=== PATIENT | female | born 1955 | race Caucasian/White ===

== ENCOUNTER → 2017-11-12 10:35 | Outpatient (CLI) | payer BC, SELFPAY ==
--- NOTE | 2017-11-12 10:37 | RAD_ITS ---
STUDY: X-RAY - LEFT KNEE REASON FOR EXAM: Female, 62 years old. Pain, decreased range of motion TECHNIQUE: 4 view(s) of the knee. COMPARISON: None. FINDINGS: Normal visualized distal femur. Normal visualized proximal tibia and fibula. Normal proximal tibiofibular articulation. There is mild degenerative arthrosis of the medial femorotibial compartment. Normal lateral femorotibial compartment. There is mild degenerative arthrosis of the patellofemoral articulation. The soft tissue structures are unremarkable. RAD/Knee 4 or More Views IMPRESSION: Degenerative arthrosis. Electronically Signed: Dagoberto Valentin MD at 12:14 EDT , Service support ,
== END ==
PROVIDERS: Family Provider Internal Medicine; PCP Internal Medicine; Visit Provider Orthopaedic Surgery
DX: M25.562 Pain in left knee (principal)
CPT/HCPCS: 73564

== ENCOUNTER 2020-09-08 16:57 | Outpatient (RCR) | payer MEDICARE, SELFPAY ==
[2017-11-12 10:38] VITALS: BMI 26.6
== END 2020-09-08 23:59 ==
LOC: IMMUN 16:57
PROVIDERS: PCP Internal Medicine; Referring Provider Family Medicine; Visit Provider Family Medicine
DX: Z23 Encounter for immunization (principal)
CPT/HCPCS: 0011A; 0012A; 91301

== ENCOUNTER → 2021-06-16 10:42 | Outpatient (CLI) | payer MEDICARE, OTHER, SELFPAY | PROVIDERS: PCP Internal Medicine; Referring Provider Physician Assistant; Visit Provider Physician Assistant | DX: U07.1 COVID-19 (principal) | CPT/HCPCS: 87635; U0005; U0003 ==

== ENCOUNTER → 2023-06-04 | Outpatient (CLI) | payer MEDICARE, OTHER, SELFPAY | END | disposition home or self-care (01) | LOC: SL 11:00 | PROVIDERS: PCP Internal Medicine; Referring Provider Nurse Practitioner Acute Care; Visit Provider Nurse Practitioner Acute Care | DX: G47.10 Hypersomnia, unspecified (principal) | CPT/HCPCS: 95806 ==

== ENCOUNTER → 2023-08-06 | Outpatient (CLI) | payer MEDICARE, OTHER, SELFPAY ==
--- OUTSIDE RECORDS SUMMARY | 2023-08-06 20:10 | XMS RPT_ITS | CCD ---
Author Name Unknown Address [address] [place] [address] Organization [facility] Care Team Providers Care Fur Examiner Name Role Phone Aline TELESALES CONSULTANT, Sanam Gray Unavailable Dequan Hartman MD Primary Care Provider Dequan Hratman MD Primary Care Provider Dequan Hartman MD Primary Care Provider ISIDRO MARTINEZ, DR MASOUD Brannon Primary Care Physician MASOUD FELIX MD Attending Unavailable MASOUD FELIX MD Primary Care Unavailable JEANNIE, FLACA Referring Unavailable FLACA DENNIS Attending Unavailable TALAMPAS, DEQUAN D Primary Care Unavailable TALAMPAS, DEQUAN D Primary Care Unavailable TALAMPAS, DEQUAN D Referring Unavailable DESMOND FLORES Attending Unavailable TALAMPAS, DEQUAN D Primary Care Unavailable DESMOND FLORES Attending Unavailable TALAMPAS, DEQUAN D Primary Care Unavailable TALAMPAS, DEQUAN D Primary Care Unavailable TALAMPAS, DEQUAN D Referring Unavailable TALAMPAS, DEQUAN D Attending Unavailable TALAMPAS, DEQUAN D Primary Care Unavailable BETH OWENS Attending Unavailable TALAMPAS, DEQUAN D Primary Care Unavailable AVANI FLOWERS Attending Unavail able TALAMPAS, DEQUAN D Primary Care Unavailable TALAMPAS, DEQUAN D Primary Care Unavailable TALAMPAS, DEQUAN D Referring Unavailable TALAMPAS, DEQUAN D Primary Care Unavailable TALAMPAS, DEQUAN D Referring Unavailable TALAMPAS, DEQUAN D Attending Unavailable TALAMPAS, DEQUAN D Primary Care Unavailable TALAMPAS, DEQUAN D Referring Unavailable TALAMPAS, DEQUAN D Primary Care Unavailable TALAMPAS, DEQUAN D Referring Unavailable ALMA DELIA, MATTHEW J Referring Unavailable TALAMPAS, DEQUAN D Primary Care Unavailable TALAMPAS, DEQUAN D Primary Care Unavailable TALAMPAS, DEQUAN D Referring Unavailable BETH OWENS Referring Unavailable BETH OWENS Attending Unavailable TALAMPAS, DEQUAN D Primary Care Unavailable BETH OWENS Referring Unavailable ROSEANN ARANDA Attending Unavailable TALAMPAS, DEQUAN D Primary Care Unavailable JUAN PABLO MEJÍA Attending Unavailable TALAMPAS, DEQUAN D Primary Care Unavailable Allergies Allergy Classification Reported Allergen(s) Allergy Type Date of Onset Reaction(s) Facility (2 sources) Adhesive Tape drug allergy 4 unknown [facility] (2 sources) apis mellifera venom; Translations: [BEE STINGS] allergy to substance 4 unknown [facility] (20 sources) nickel; Translations: [NICKEL] Drug Allergy 8 unknown [facility] (20 sources) PERFUMES; Translations: [PERFUMES] drug allergy 5 unknown [facility] (20 sources) beestings [Other] Propensity to adverse reactions 5 [facility] Work Phone: (20 sources) tape [Other] Propensity to adverse reactions 5 [facility] Work Phone: (1 source) BEE STING; Translations: [BEE STING] Propensity to adverse reactions (disorder) 3 [facility] (1 source) ADHESIVE TAPE-SILICONES; Translations: [ADHESIVE TAPE-SILICONES] Propensity to adverse reactions to drug (disorder) 3 [facility] (1 source) OTHER; Translations: [OTHER] Propensity to adverse reactions (disorder) 5 [facility] Medications Current Medications Medication Drug Class(es) Dates Sig (Normalized) Sig (Original) LORazepam 0.5 mg oral tablet (18 sources) Benzodiazepine Start: 09-29-2022 End: 10-29-2022 take 1 tablet by mouth once daily as needed LORazepam (ATIVAN) 0.5 mg Indications: LONNY (generalized anxiety disorder) Take 1 tablet by mouth once daily as needed for up to 30 days. 15 tablet 0 09/29/2022 10/29/2022 Active Completed/Discontinued Medications Medication Drug Class(es) Dates Sig (Normalized) Sig (Original) amitriptyline hydrochloride 25 mg oral tablet (4 sources) Tricyclic Antidepressant Start: 08-05-2013 End: 06-14-2017 take 1-2 tablets by mouth at bedtime for sleep AMITRIPTYLINE HCL 25 MG TABS 1-2 tablets by mouth at bedtime for sleep AMITRIPTYLINE HCL [id number] Mare Charles RN 24 hr buPROPion hydrochloride 300 mg extended release oral tablet (2 sources) Aminoketone Start: 08-05-2013 take 1 tablet by mouth once daily WELLBUTRIN XL 300 MG [id number] One tablet by mouth daily BUPROPION HCL [id number] Mare Charles RN calcium carbonate 1500 mg / cholecalciferol 200 unt oral tablet (20 sources) Vitamin D Start: 04-19-2005 FABI-600 WITH VITAMIN D 600 MG-200 UNIT TAB Take by mouth. 0 04/19/2005 Active Problems Active Problems Problem Classification Problem Date Documented Da te Episodic/Chronic Anxiety disorders (20 sources) Generalized anxiety disorder; Translations: [Generalized anxiety disorder] Onset: 07-13-2021 07-13-2021 Chronic Disorders of lipid metabolism (20 sources) Hyperlipidemia; Translations: [Hyperlipidemia, unspecified] Onset: 06-06-2006 08-05-2013 Chronic Essential hypertension (5 sources) Essential hypertension; Translations: [Essential (primary) hypertension] Onset: 05-31-2023 Chronic Headache; including migraine (20 sources) Migraine without aura; Translations: [Migraine without aura, not intractable, without status migrainosus] Onset: 06-06-2006 06-06-2006 Chronic Mood disorders (20 sources) Recurrent major depressive episodes, moderate ; Translations: [Major depressive disorder, recurrent, moderate] Onset: 07-13-2021 07-13-2021 Chronic Nonmalignant breast conditions (5 sources) Fibrocystic changes of bilateral breasts; Translations: [Diffuse cystic mastopathy of right breast] Chronic Nonmalignant breast conditions (1 source) Breast finding ; Translations: [Other signs and symptoms in breast] Episodic Nutritional deficiencies (3 sources) Vitamin D deficiency; Translations: [Vitamin D deficiency, unspecified] Onset: 05-31-2023 Chronic Other aftercare (1 source) Patient encounter status; Translations: [Other 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 control service representative (current) drug therapy] Episodic Other aftercare (1 source) Other termite control service representative (current) drug therapy; Translations: [Encounter for long-term current use of medication] Onset: 05-31-2023 Episodic Other disorders of stomach and duodenum (1 source) Nonulcer dyspepsia; Translations: [Other diseases of stomach and duodenum] Episodic Other female genital disorders (1 source) Vaginal odor; Translations: [Other specified noninflammatory disorders of vagina] Episodic Other gastrointestinal disorders (1 source) Heartburn; Translations: [Heartburn] 08-11-2022 Episodic Other hereditary and degenerative nervous system conditions (1 source) Impaired cognition; Translations: [Mild cognitive impairment, so stated] 04-06-2023 Chronic Other nutritional; endocrine; and metabolic disorders (4 sources) Obese class I; Translations: [Obesity, unspecified] Onset: 04-06-2023 04-06-2023 Chronic Other screening for suspected conditions (not mental disorders or infectious disease) (7 sources) Mammography abnormal; Translations: [Other abnormal and inconclusive findings on diagnostic imaging of breast] Onset: 07-25-2023 Episodic Other skin disorders (1 source) Localized swelling of right foot; Translations: [Localized swelling, mass and lump, right lower limb] Episodic Prolapse of female genital organs (2 sources) Midline cystocele; Translations: [Cystocele, midline] Onset: 06-14-2017 06-14-2017 Chronic Residual codes; unclassified (20 sources) Family history of breast cancer; Translations: [Family history of malignant neoplasm of breast] 06-25-2019 Episodic Residual codes; unclassified (5 sources) Genetic mutation; Translations: [Genetic susceptibility to other disease] Episodic Residual codes; unclassified (1 source) Postmenopausal state; Translations: [Asymptomatic menopausal state] Episodic Residual codes; unclassified (1 source) Asymptomatic menopausal state; Translations: [Asymptomatic postmenopausal state] Onset: 07-25-2023 Episodic Skin and subcutaneous tissue infections (2 sources) Cellulitis of right lower limb; Translations: [Cellulitis of right lower limb] 04-03-2023 Episodic Spondylosis; intervertebral disc disorders; other back problems (1 source) Low back pain; Translations: [Low back pain, unspecified back pain laterality, unspecified chronicity, unspecified whether sciatica present] Episodic Superficial injury; contusion (1 source) Insect bite, nonvenomous, of foot; Translations: [Insect bite (nonvenomous), right foot, initial encounter] 04-03-2023 Episodic Thyroid disorders (20 sources) Hypothyroidism; Translations: [Hypothyroidism, unspecified] Onset: 09-27-2015 09-27-2015 Chronic Unclassified (2 sources) Gynecologic examination ; Translations: [Encounter for gynecological examination (general) (routine) without abnormal findings] Onset: 06-14-2017 06-14-2017 Past or Other Problems Problem Classification Problem Date Documented Da te Episodic/Chronic Allergic reactions (20 sources) Allergy to bee venom; Translations: [Bee allergy status] Onset: 12-18-2016 12-18-2016 Episodic Conditions associated with dizziness or vertigo (2 sources) Dizziness; Translations: [Dizziness and giddiness] Onset: 08-05-2013 08-05-2013 Episodic Nausea and vomiting (4 sources) Nausea; Translations: [Nausea] Onset: 08-11-2022 Episodic Nonspecific chest pain (2 sources) Chest pain, unspecified; Translations: [Chest pain, unspecified] Onset: 08-05-2013 08-05-2013 Episodic Other gastrointestinal disorders (1 source) Heartburn; Translations: [Heartburn] Onset: 08-11-2022 Episodic Other non-traumatic joint disorders (20 sources) Multiple joint pain; Translations: [Pain in unspecified joint] Onset: 06-06-2006 06-06-2006 Episodic Results Test Name Value Interpretation Reference Range Facil ity Vital Signs Date Time Vital Sign Value Performing Clinician Facility 04-06-2023 10:43-0400 Diastolic blood pressure 74 mm[Hg] Desmond Flores APRN.CNP Work Phone: [facility] 04-06-2023 10:43-0400 Systolic blood pressure 130 mm[Hg] Desmond Flores APRN.CNP Work Phone: [facility] 04-06-2023 10:41-0400 Body height 158.8 cm Desmond Flores APRN.CNP Work Phone: [facility] 04-06-2023 10:41-0400 Body weight 77.56 kg Desmond Flores APRN.CNP Work Phone: [facility] 04-06-2023 10:41-0400 Heart rate 56 /min Desmond Sandra SEASONING SPRAYER.HELP DESK SPECIALIST Work Phone: [facility] 04-06-2023 10:41-0400 SaO2% (BldA) [Mass fraction] 98 % Desmond Sandra SEASONING SPRAYER.HELP DESK SPECIALIST Work Phone: [facility] 04-03-2023 15:47-0400 Diastolic blood pressure 70 mm[Hg] Desmond Sandra SEASONING SPRAYER.HELP DESK SPECIALIST Work Phone: [facility] 04-03-2023 15:47-0400 Systolic blood pressure 150 mm[Hg] Desmond Sandra SEASONING SPRAYER.HELP DESK SPECIALIST Work Phone: [facility] 04-03-2023 15:46-0400 Body weight 78.93 kg Desmond Sandra SEASONING SPRAYER.HELP DESK SPECIALIST Work Phone: [facility] 04-03-2023 15:46-0400 Heart rate 65 /min Desmond Sandra SEASONING SPRAYER.HELP DESK SPECIALIST Work Phone: [facility] 04-03-2023 15:46-0400 SaO2% (BldA) [Mass fraction] 97 % Desmond Sandra SEASONING SPRAYER.HELP DESK SPECIALIST Work Phone: [facility] 12-18-2022 11:50-0400 Body height 167.6 cm Flaca Dennis MD Work Phone: [facility] 12-18-2022 11:50-0400 Body weight 77.11 kg Flaca Dennis MD Work Phone: [facility] 11-29-2022 11:03-0400 Diastolic blood pressure 78 mm[Hg] Dequan Hartman MD Work Phone: [facility] 11-29-2022 11:03-0400 Systolic blood pressure 122 mm[Hg] Dequan Hartman MD Work Phone: [facility] 11-29-2022 09:44-0400 Body temperature 97.3 [degF] Dequan Hartman MD Work Phone: [facility] 11-29-2022 09:44-0400 Body weight 78.02 kg Dequan Hartman MD Work Phone: [facility] 11-29-2022 09:44-0400 Heart rate 62 /min Dequan Hartman MD Work Phone: [facility] 11-29-2022 09:44-0400 Respiratory rate 18 /min Dequan aHrtman MD Work Phone: [facility] 11-29-2022 09:44-0400 SaO2% (BldA) [Mass fraction] 97 % Dequan Hartman MD Work Phone: [facility] 08-18-2022 14:42-0500 Body height 167.6 cm Roseann Rockwell PA-C Work Phone: [facility] 08-18-2022 14:42-0500 Body temperature 97.39 [degF] Roseann Rockwell PA-C Work Phone: [facility] 08-18-2022 14:42-0500 Body weight 79.83 kg Roseann Rockwell PA-C Work Phone: [facility] 08-18-2022 14:42-0500 Diastolic blood pressure 84 mm[Hg] Roseann Rosi PA-C Work Phone: [facility] 08-18-2022 14:42-0500 Heart rate 80 /min Roseann Rockwell PA-C Work Phone: [facility] 08-18-2022 14:42-0500 SaO2% (BldA) [Mass fraction] 97 % Roseann Rockwell PA-C Work Phone: [facility] 08-18-2022 14:42-0500 Systolic blood pressure 126 mm[Hg] Roseann Rockwell PA-C Work Phone: [facility] 08-11-2022 13:12-0500 Diastolic blood pressure 88 mm[Hg] Beth Owens MD Work Phone: [facility] 08-11-2022 13:12-0500 Heart rate 69 /min Beth Owens MD Work Phone: [facility] 08-11-2022 13:12-0500 Respiratory rate 16 /min Beth Owens MD Work Phone: [facility] 08-11-2022 13:12-0500 SaO2% (BldA) [Mass fraction] 95 % Beth Owens MD Work Phone: [facility] 08-11-2022 13:12-0500 Systolic blood pressure 169 mm[Hg] Beth Owens MD Work Phone: [facility] 08-11-2022 11:42-0500 Body temperature 97 [degF] Beth Owens MD Work Phone: [facility] 08-10-2022 10:15-0500 Body height 167.6 cm Beth Owens MD Work Phone: [facility] 08-10-2022 10:15-0500 Body temperature 98.2 [degF] Beth Owens MD Work Phone: [facility] 08-10-2022 10:15-0500 Body weight 79.83 kg Beth Owens MD Work Phone: [facility] 08-10-2022 10:15-0500 Diastolic blood pressure 86 mm[Hg] Beth Owens MD Work Phone: [facility] 08-10-2022 10:15-0500 Heart rate 89 /min Beth Owens MD Work Phone: [facility] 08-10-2022 10:15-0500 SaO2% (BldA) [Mass fraction] 96 % Beth Owens MD Work Phone: [facility] 08-10-2022 10:15-0500 Systolic blood pressure 142 mm[Hg] Beth Owens MD Work Phone: [facility] 07-05-2022 13:23-0500 Body weight 82.64 kg Avani Chamberlain MD Work Phone: [facility] 07-05-2022 13:23-0500 Diastolic blood pressure 90 mm[Hg] Avani Chamberlain MD Work Phone: [facility] 07-05-2022 13:23-0500 Systolic blood pressure 160 mm[Hg] Avani Chamberlain MD Work Phone: [facility] 06-05-2022 14:23-0500 Diastolic blood pressure 82 mm[Hg] Dequan Hartman MD Work Phone: [facility] 06-05-2022 14:23-0500 Systolic blood pressure 132 mm[Hg] Dequan Hartman MD Work Phone: [facility] 03-15-2022 14:30-0400 Body weight 81.19 kg Radha Rajguru SEASONING SPRAYER.HELP DESK SPECIALIST Work Phone: [facility] 03-15-2022 14:30-0400 Diastolic blood pressure 78 mm[Hg] Radha Rajguru SEASONING SPRAYER.HELP DESK SPECIALIST Work Phone: [facility] 03-15-2022 14:30-0400 Heart rate 62 /min Radha Rajguru SEASONING SPRAYER.HELP DESK SPECIALIST Work Phone: [facility] 03-15-2022 14:30-0400 Systolic blood pressure 158 mm[Hg] Radha Rajguru SEASONING SPRAYER.HELP DESK SPECIALIST Work Phone: [facility] 01-11-2022 15:55-0400 Body weight 80.74 kg Radha Rajguru SEASONING SPRAYER.HELP DESK SPECIALIST Work Phone: [facility] 01-11-2022 15:55-0400 Diastolic blood pressure 78 mm[Hg] Radha Rajguru SEASONING SPRAYER.HELP DESK SPECIALIST Work Phone: [facility] 01-11-2022 15:55-0400 Systolic blood pressure 142 mm[Hg] Radha Rajguru SEASONING SPRAYER.HELP DESK SPECIALIST Work Phone: [facility] 01-11-2022 15:45-0400 Diastolic blood pressure 83 mm[Hg] Mi Nurse Work Phone: [facility] 01-11-2022 15:45-0400 Heart rate 70 /min Mi Nurse Work Phone: [facility] 01-11-2022 15:45-0400 Systolic blood pressure 134 mm[Hg] Mi Nurse Work Phone: [facility] 11-16-2021 13:02-0400 Body weight 79.83 kg Radha Rajguru SEASONING SPRAYER.HELP DESK SPECIALIST Work Phone: [facility] 11-16-2021 13:02-0400 Diastolic blood pressure 80 mm[Hg] Radha Rajguru SEASONING SPRAYER.HELP DESK SPECIALIST Work Phone: [facility] 11-16-2021 13:02-0400 Heart rate 80 /min Radha Rajguru SEASONING SPRAYER.HELP DESK SPECIALIST Work Phone: [facility] 11-16-2021 13:02-0400 Systolic blood pressure 164 mm[Hg] Radha Rajguru SEASONING SPRAYER.HELP DESK SPECIALIST Work Phone: [facility] 06-14-2017 13:02-0500 BMI (Body Mass Index) 28.42 kg/m2 Sanam Mireles NP [facility] 06-14-2017 13:02-0500 BP Diastolic 88 mm[Hg] Sanam Mireles NP [facility] 06-14-2017 13:02-0500 BP Systolic 137 mm[Hg] Sanam Mireles NP [facility] 06-14-2017 13:02-0500 Height 165.1 cm Sanam Mireles NP [facility] 06-14-2017 13:02-0500 Weight 77.47 kg Sanam Mireles NP [facility] 08-13-2013 10:26-0500 Pulse (Heart Rate) 80 /min Sanam Mireles NP [facility] 08-13-2013 10:26-0500 Respiratory Rate 18 /min [facility] En[facility]ters Encounter Date Encounter Type Care Provider Facility Start: 07-25-2023 End: 07-25-2023 ambulatory DEQUAN HARTMAN Facility:[facility] Start: 07-25-2023 End: 07-26-2023 ambulatory AVANI CHAMBERLAIN Facility:[facility] Start: 07-25-2023 Encounter for gynecological examination (general) (routine) without abnormal findings AVANI CHAMBERLAIN [facility] Start: 06-05-2023 End: 06-05-2023 ambulatory DEQUAN HARTMAN Facility:[facility] Start: 06-04-2023 ambulatory Flaca Dennis MD Work Phone: [facility] Procedures Date Procedure Procedure Detail Performing Clinician Start: 05-31-2023 Lipid 1996 panel - Serum or Plasma Edelmira Dennis MD Work Phone: Start: 12-18-2022 Mammography Deqaun Hartman MD Work Phone: Start: 11-14-2022 Lipid 1996 panel - Serum or Plasma Desmond Flores APRN.HELP DESK SPECIALIST Work Phone: Start: 08-11-2022 Level iv surg pathology gross&microscopic exam Beth Owens MD Work Phone: Start: 08-11-2022 Esophagogastroduodenoscopy transoral diagnostic Beth Owens MD Work Phone: Start: 07-05-2022 Urnls dip stick/tablet rgnt auto w/o microscopy Avani Chamberlain MD Work Phone: Start: 12-28-2021 Bx breast w/device 1st lesion ultrasound guid Matthew Beckham MD Work Phone: Start: 12-28-2021 Diagnostic mammography computer-aided detcj uni Regla Kiran MD Work Phone: Start: 11-28-2021 Mammography Avani Chamberlain MD Work Phone: Start: 11-23-2020 Mammography Radha Fountain APRN.HELP DESK SPECIALIST Work Phone: Start: 05-19-2019 Colonoscopy Radha Fountain APRN.HELP DESK SPECIALIST Work Phone: Start: 08-13-2013 End: 08-13-2013 *BMP Elias Kramer MD Start: 08-13-2013 End: 08-13-2013 BOILING HOUSE HAND Elias Kramer MD Start: 08-13-2013 End: 08-13-2013 Follow Up Appt 3 months Tasneem Ellis Start: 08-13-2013 End: 08-13-2013 Natriuretic peptide B [Mass/volume] in Blood Elias Kramer MD Plan of Treatment Date Care Activity Detail Author Start: 03-31-2033 Urine microalbumin profile DTaP,Tdap,Td Vaccine (3 - Td or Tdap) [facility] Start: 05-31-2028 Lipid 1996 panel - S emma or Plasma Lipid Screening [facility] Start: 12-12-2027 Urine microalbumin profile DTAP,TDAP,TD (2 - Td or Tdap) [facility] Start: 11-15-2027 Lipid 1996 panel - S emma or Plasma Lipid Screening [facility] Start: 11-15-2027 LIPID SCREEN LIPID SCREEN [facility] Start: 12-01-2026 LIPID SCREEN LIPID SCREEN [facility] Start: 05-31-2026 Diabetes Screening Diabetes Screenin [facility] Start: 11-20-2025 LIPID SCREEN LIPID SCREEN [facility] Start: 11-14-2025 DIABETES SCREEN DIABETES SCREEN [facility] Start: 11-14-2025 Diabetes Screening Diabetes Screenin g [facility] Start: 12-01-2024 DIABETES SCREEN DIABETES SCREEN [facility] Start: 05-19-2024 Colonoscopy COLONOSCOPY [facility] Start: 05-19-2024 COLORECTAL CANCER SCREENING COLORECTAL CANCER SCREENING [facility] Start: 04-06-2024 Annual PCP Team Dispensary Clerk kay Disease Visit Annual PCP Team Chronic Disease Visit [facility] Start: 04-06-2024 BP Controlled (<130/80) BP Controlle d (<130/80) [facility] Start: 04-03-2024 Annual PCP Team Dispensary Clerk kay Disease Visit Annual PCP Team Chronic Disease Visit [facility] Start: 12-19-2023 Mammography [facility] Start: 11-30-2023 ANNUAL PCP TEAM REBAR FABRICATOR KAY DISEASE VISIT ANNUAL PCP TEAM CHRONIC DISEASE VISIT [facility] Start: 11-30-2023 BP CONTROLLED (<130/80) BP CONTROLLE D (<130/80) [facility] Start: 11-12-2023 DIABETES SCREEN DIABETES SCREEN [facility] Start: 10-16-2023 Pneumococcal Vaccine : 65+ (3 - PPSV23 or PCV20) Pneumococcal Vaccine: 65+ (3 - PPSV23 or PCV20) [facility] Start: 06-05-2023 ANNUAL PCP TEAM REBAR FABRICATOR KAY DISEASE VISIT ANNUAL PCP TEAM CHRONIC DISEASE VISIT [facility] Start: 06-05-2023 COVID-19 VACCINE (4 - Booster for Moderna series) COVID-19 VACCINE (4 - Booster for Moderna series) [facility] Immunizations Immunization Date Immunization Notes Care Provider Fa cility 03-31-2023 tetanus and diphther ia toxoids, adsorbed, preservative free, for adult use (2 Lf of tetanus toxoid and 2 Lf of diphtheria toxoid) Desmond Flores APRN.[facility] Work Phone: [facility] Work Phone: 05-25-2022 influenza (HD-IIV4) vaccine, age 65+ yr, high dose, quadrivalent, PF (FLUZONE HIGH-DOSE) Flaca Dennis MD Work Phone: [facility] 05-25-2022 influenza virus vacc ine, unspecified formulation Desmond Flores APRN.HELP DESK SPECIALIST Work Phone: [facility] 05-26-2021 COVID-19 vaccine, fu ll dose (MODERNA) Radha Fountain SEASONING SPRAYER.HELP DESK SPECIALIST Work Phone: [facility] 04-21-2021 influenza (HD-IIV4) vaccine, age 65+ yr, high dose, quadrivalent, PF (FLUZONE HIGH-DOSE) Flaca Dennis MD Work Phone: [facility] 04-21-2021 influenza, high dose seasonal, preservative-free Radha Fountain SEASONING SPRAYER.HELP DESK SPECIALIST Work Phone: [facility] Work Phone: 10-06-2020 COVID-19 vaccine, fu ll dose (MODERNA) Radha Fountain SEASONING SPRAYER.HELP DESK SPECIALIST Work Phone: [facility] Work Phone: 09-08-2020 COVID-19 vaccine, fu ll dose (MODERNA) Radha Rajguru SEASONING SPRAYER.HELP DESK SPECIALIST Work Phone: [facility] Work Phone: 04-30-2020 influenza, high-dose , quadrivalent vaccine (FLUZONE HIGH DOSE QUADRIVALENT) Radha Rajguru SEASONING SPRAYER.HELP DESK SPECIALIST Work Phone: [facility] 04-26-2019 influenza, seasonal, injectable Radha Rajguru SEASONING SPRAYER.HELP DESK SPECIALIST Work Phone: [facility] 04-26-2019 Seasonal trivalent influenza vaccine, adjuvanted, preservative free Flaca Dennis MD Work Phone: [facility] 10-15-2018 pneumococcal conjuga te vaccine, 13 valent Radha Rajguru SEASONING SPRAYER.HELP DESK SPECIALIST Work Phone: [facility] 04-20-2018 influenza, injectabl e, quadrivalent, preservative free Radha Rajguru SEASONING SPRAYER.HELP DESK SPECIALIST Work Phone: [facility] 12-11-2017 tetanus toxoid, redu helen diphtheria toxoid, and acellular pertussis vaccine, adsorbed Radha Rajguru SEASONING SPRAYER.HELP DESK SPECIALIST Work Phone: [facility] Work Phone: 05-16-2017 influenza, injectabl e, quadrivalent, preservative free Radha Rajguru SEASONING SPRAYER.HELP DESK SPECIALIST Work Phone: [facility] 05-16-2017 influenza, seasonal, injectable Radha Rajguru SEASONING SPRAYER.HELP DESK SPECIALIST Work Phone: [facility] Work Phone: 04-07-2016 influenza, injectabl e, quadrivalent, contains preservative Radha Rajguru SEASONING SPRAYER.HELP DESK SPECIALIST Work Phone: [facility] 06-02-2015 influenza, injectabl e, quadrivalent, contains preservative Radha Rajguru SEASONING SPRAYER.HELP DESK SPECIALIST Work Phone: [facility] Work Phone: 04-29-2014 influenza virus vacc ine, unspecified formulation Radha Russelljesslazara SEASONING SPRAYER.HELP DESK SPECIALIST Work Phone: [facility] Work Phone: 08-22-2013 pneumococcal polysaccharide vaccine, 23 valent Radha Wellsjesslazara SEASONING SPRAYER.HELP DESK SPECIALIST Work Phone: [facility] Work Phone: 08-22-2013 zoster vaccine, live Radha mendenhall SEASONING SPRAYER.HELP DESK SPECIALIST Work Phone: [facility] Work Phone: 04-15-2012 influenza virus vacc ine, unspecified formulation Radha Russelljesslazara SEASONING SPRAYER.HELP DESK SPECIALIST Work Phone: [facility] 04-21-2007 tetanus and diphther ia toxoids, not adsorbed, for adult use Radha Александр SEASONING SPRAYER.HELP DESK SPECIALIST Work Phone: [facility] 12-14-2000 tetanus and diphther ia toxoids, not adsorbed, for adult use Radha Александр SEASONING SPRAYER.HELP DESK SPECIALIST Work Phone: [facility] Work Phone: Payers Date Payer Category Payer Unknown [id number] 2021 Medicare [id number] 2021 Unknown [employer] [place] [employer] [place] [employer] SUPPLEMENT [id number] 2021-Present [phone] [address] [place] [address] Indemnity [id number] 2021 Unknown [employer] [place] [employer] [place] [employer] SUPPLEMENT [id number] 2021-Present [phone] [address] [place] [address] Indemnity [id number] 2018 Medicare MEDICARE MEDICAR E A AND B [id number] 2018-Present [phone] [place] [address] Medicare [id number] 2018 Medicare MEDICARE MEDICAR E A AND B [id number] 2018-Present [phone] [place] [address] Medicare [id number] 2018 Medicare [id number] 1955 Unknown [id number] Social History Date Type Detail Facility Start: 07-25-2013 End: 06-05-2022 Tobacco smoking status NHIS Ex-smoker [facility] Work Phone: End: 03-16-2013 History of tobacco use Current smoker [facility] Work Phone: End: 03-16-2013 History of tobacco use Cigarette Smoker [facility] Work Phone: Start: 07-25-2013 End: 11-28-2022 Cigarettes smoked current (pack per day) - Reported 0.5 [facility] Start: 07-25-2013 End: 06-05-2022 Tobacco use and exposure Smokeless tobacco non-user [facility] Work Phone: Start: 07-13-2021 End: 04-06-2023 Alcohol intake Current non-drinker of alcohol (finding) [facility] Start: 04-25-2020 End: 11-29-2022 History SDOH Alcohol Frequency 2 [facility] Start: 04-25-2020 End: 11-29-2022 History SDOH Alcohol Std Drinks 1 [facility] Start: 04-25-2020 End: 11-29-2022 History SDOH Social Connections Phone 5 [facility] Start: 04-25-2020 End: 11-29-2022 History SDOH Social Connections Get Together 3 [facility] Start: 04-25-2020 History SDOH Physical Activity MPS 6 [facility] Start: 04-25-2020 History SDOH Stress 4 [facility] Start: 04-24-2020 Education 15 [facility] Start: 1955 Sex Assigned At Female [facility] Start: 11-06-2021 End: 06-14-2022 Exposure to SARS-CoV-2 (event) Not sure [facility] Work Phone: Start: 12-13-2021 End: 12-23-2021 Exposure to SARS-CoV-2 (event) Unable to assess [facility] Start: 05-29-2022 History SDOH Physical Activity DPW 0 [facility] Tobacco smoking status No Smokin g Status Entered [facility] Start: 06-13-2022 End: 11-28-2022 Social connection and isolation panel [facility] Do you belong to any clubs or organizations such as cheondoism groups, unions, fraternal or athletic groups, or school groups? Yes [facility] Are you now , , , , never or living with a partner? [facility] How often to you hav e a drink containing alcohol? Monthly or less [facility] How many standard dr inks containing alcohol do you have on a typical day? 1 or 2 [facility] How often do you hav e 6 or more drinks on 1 occasion? Never [facility] How hard is it for y ou to pay for the very basics like food, housing, medical care, and heating Not hard at all [facility] Do you feel stress - tense, restless, nervous, or anxious, or unable to sleep at night because your mind is troubled all the time - these days [OSQ] To some extent [facility] (I/We) worried fred er (my/our) food would run out before (I/we) got money to buy more. Never true [facility] In the past 12 month s, was there a time when you were not able to pay the mortgage or rent on time? No [facility] Start: 10-09-2018 Gender identity Identifies as female gender (finding) [facility] Start: 10-09-2018 Sexual orientation Heterosexual (finding) [facility] Clinical Notes 02-22-2015 to 07-25-2023 Telephone Encounter - Tasneem Wall RN - 05/31/2023 9:18 AM ESTTelephone Encounter - Dequan Hartman MD - 05/30/2023 11:32 PM ESTTelephone Encounter - Cate Landers RN - 05/30/2023 11:04 AM EST Note Date & Type Note Facility 07-25-2023 Note HNO ID: [id number] Author: CALLY COREY RT(R) Service: ? Author Type: Technologist Type: Progress Notes Filed: 07/25/2023 10:13 Note Text: Radiology Service Progress Note PATIENT NAME: Lisset Lawler DATE OF SERVICE: July 25, 2023 TIME: 10:02 AM PATIENT IDENTITY VERIFICATION COMPLETED USING TWO (2) IDENTIFIERS: Name and Date of confirmed by patient verbally. FALL SCREENING: Has the patient had 2 falls in the last year or 1 fall with injury or currently using an Ambulatory Assistive Device (Walker, Cane, Wheelchair, Crutches, etc.)? No PATIENT GENDER DATA: Female. status: : No status: NO. PATIENT RELEVANT IMPLANT DATA REVIEWED: Not Applicable RADIOLOGY DEPARTMENT: Bone Density PERIPHERAL IV DATA: Not applicable SIGNED BY: RT Rodolfo(R) July 25, 2023 10:02 AM [facility] 07-25-2023 Note HNO ID: [id number] Author: AVANI FLOWERS MD Service: ? 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 LISSET is a 67 year old who presents for an annual gynecologic exam with complaints, USI . Gets up 2x night for urination. Postmenopausal: Yes HRT use: No. Last Pap: 06/21/2016 normal HPV: 06/15/2016 negative History of abnormal pap: No Last mammogram: 2022 normal History of abnormal mammogram: No Sexually active: Yes History of STDS: None Patient concerns for STD exposure: No. 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 History Comments: Sexual Activity: Yes; Male Contraception: No contraception data on record PAST MEDICAL HISTORY Diagnosis Date Arthritis both knees Chronic rhinitis 06/06/2006 Diarrhea Esophagitis, unspecified External hemorrhoids without mention of complication Family history of breast cancer Mother, Sister and 2 Aunts HIGH BLOOD PRESSURE-NO HYPERTENSN 06/06/2006 Hip strain 02/22/2015 Hypertension Internal hemorrhoids without mention of complication Pain in joint, forearm 09/16/2012 Unspecified constipation Unspecified hypothyroidism VAGINITIS ATROPHIC 06/06/2006 PAST SURGICAL HISTORY Procedure Laterality Date APPENDECTOMY COLONOSCOPY FLX DX W/COLLJ SPEC WHEN PFRMD 06/21/2005 Colonoscopy-repeat in COLONOSCOPY FLX DX W/COLLJ SPEC WHEN PFRMD 06/22/2014 Colonoscopy COLONOSCOPY FLX DX W/COLLJ SPEC WHEN PFRMD 05/19/2019 repeat colon in 5 years DESTRUCTION HEMORRHOIDS,INT/UR COORDINATOR EGD 08/11/2022 ESOPHAGOGASTRODUODENOSCOPY TRANSORAL DIAGNOSTIC 09/12/2000 EGD EYE SURGERY HX SKIN BIOPSY HX TUBAL LIGATION HX FAMILY HISTORY Problem Relation Age of Onset Hypertension Mother Breast Cancer Mother 85 Hypertension Father Prostate Cancer Father 70 Skin Cancer Father BCC, SCC, melanoma Breast Cancer Sister 67 Prostate Cancer Brother diagnosed 2017 other (lung cancer) Brother Breast Cancer Paternal Aunt 80 other (Other/gynecological cancer) Paternal Aunt 53 Prostate Cancer Paternal Uncle Prostate Cancer Paternal Uncle Dx: around 73 yo other (Other/lung) Paternal Uncle 70 other (Other/lung) Paternal Uncle 73 other (Other) Maternal Grandmother 88 Throat/oral cancer other (Other) Maternal Grandfather Lung cancer other (juvinille diabetic) Son Breast Cancer Other 55 Maternal first cousin other (Other/vulvar cancer) Other 44 Maternal first cousin Breast Cancer Other 35 Maternal first cousin's daughter Colon Cancer Other Paternal first cousin Prostate Cancer Other 70 Paternal first cousin Breast Cancer Other 80 Paternal first cousin other (lung) Other Paternal first cousin Prostate Cancer Other 82 Paternal first cousin Breast Cancer Other 50 Breast Cancer Other 25 Paternal first cousin's daughter Breast Cancer Other 40 Paternal first cousin's daughter Breast Cancer Other 50 Paternal first cousin's daughter Breast Cancer Other Paternal first cousin's daughter SOCIAL HISTORY Social History Tobacco Use Smoking status: Former Packs/day: 0.50 Years: 20.00 Additional pack years: 0.00 Total pack years: 10.00 Types: Cigarettes Quit date: 03/16/2013 Years since quittin.3 Smokeless tobacco: Never Vaping Use Vaping Use: Never used Substance Use Topics Alcohol use: No Drug use: No REVIEW OF SYSTEMS Abdomen: No abdominal pain, nausea, vomiting, diarrhea, or constipation. No bloating, early satiety, indigestion, or increased flatulence. Bladder: No dysuria, gross hematuria, urinary frequency, urinary urgency, . ++USI Breast: No breast lumps, nipple d/c, overlying skin changes, redness or skin retraction Allergies and current medication updated:Yes EXAM: BP 118/74 Ht 5' 3 (1.60m) Wt 171 lb (77.6kg) LMP 03/16/2006 BMI 30.30 kg/(m2). GENERAL: pleasant, female in no apparent distress HEENT: Normocephalic, atraumatic, mucus membranes moist, and no lesions NECK: Supple, full range of motion, no adenopathy, and thyroid normal DERMATOLOGY: Normal, without lesions, non-icteric, and non-hirsute BREAST: soft, non-tender, symmetric, no dominant mass, normal nipple-areolar complex, no lymphadenopathy, and no nipple discharge ABDOMEN: soft, non-tender, and no masses PELVIC: external genitalia normal, normal Bartholin's glands, urethra, [place]'s glands, no vulvar lesions, no cervical lesions, good vaginal support, physiologic discharge present, normal appearing perineal body and perianal region BIMANUAL: uterus normal size, (more content not included)... [facility] 06-05-2023 Note HNO ID: [id number] Author: Dequan Hartman MD Service: ? Author Type: Physician Type: Progress Notes Filed: 07/11/2023 12:35 AM Note Text: This note was created using DIVINE [employer]. Subjective Lisset Lawler is a 67 year old female. Patient presents with: F/U 6 months: Labs prior SUBJECTIVE: Lisset Lawler is a 67 year old year old lady here today for 6 month follow up appointment for review of medical conditions. Tension headaches the past few weeks. SSon with health issues. Going to [facility] for a week Jun 30. Going with family. Has needed cortisone shot in foot. Arthritis in first MTP joint. Also has arthritis in knees and hands. Ortho gave Celebrex and this has helped. With taking every other day, arthritis not well controlled. Hard to open hand. Tramadol helps for severe migraine headaches--30 pills lasted since 2020. PAST MEDICAL HISTORY Diagnosis Date Arthritis both knees Chronic rhinitis 06/06/2006 Diarrhea Esophagitis, unspecified External hemorrhoids without mention of complication Family history of breast cancer Mother, Sister and 2 Aunts HIGH BLOOD PRESSURE-NO HYPERTENSN 06/06/2006 Hip strain 02/22/2015 Hypertension Internal hemorrhoids without mention of complication Pain in joint, forearm 09/16/2012 Unspecified constipation Unspecified hypothyroidism VAGINITIS ATROPHIC 06/06/2006 Current Outpatient Medications Medication Sig EPINEPHrine (ADRENACLICK) 0.3 mg/0.3 mL auto-injector Inject 0.3 mL intramuscularly as needed. For bee sting allergy metoprolol succinate ER (TOPROL XL) 50 mg 24 hr tablet Take 1 tablet by mouth once daily. venlafaxine (EFFEXOR) 25 mg tablet Take 1 tablet by mouth daily with dinner. levothyroxine (SYNTHROID) 112 mcg tablet Take 1 tablet by mouth once daily. Take on empty stomach. For Thyroid triamcinolone acetonide (KENALOG) 0.1 % cream Apply sparingly to area for rash/itching. traMADol (ULTRAM) 50 mg tablet Take 1 tablet by mouth every 6 hours as needed for up to 180 days. Cholecalciferol, Vitamin D3, 50 mcg (2,000 unit) cap Take 1 capsule by mouth once daily. FABI-600 WITH VITAMIN D 600 MG-200 UNIT TAB Take by mouth. No current facility-administered medications for this visit. Review of Systems Objective BP 124/78 Pulse 70 Temp (!) 35.9 ?C (96.7 ?F) Resp 18 Wt 78 kg (172 lb) LMP 03/16/2006 SpO2 98% BMI 30.96 kg/m? Physical Exam Constitutional: Appearance: Normal appearance. HENT: Head: Normocephalic. Eyes: Conjunctiva/sclera: Conjunctivae normal. Cardiovascular: Rate and Rhythm: Normal rate and regular rhythm. Heart sounds: Normal heart sounds. Pulmonary: Effort: Pulmonary effort is normal. Breath sounds: Normal breath sounds. Musculoskeletal: Right lower leg: No edema. Left lower leg: No edema. Skin: General: Skin is warm and dry. Neurological: General: No focal deficit present. Mental Status: She is alert and oriented to person, place, and time. Psychiatric: Attention and Perception: Attention and perception normal. Mood and Affect: Mood and affect normal. Speech: Speech normal. Behavior: Behavior normal. Thought Content: Thought content normal. Judgment: Judgment normal. Component Latest Ref Rng AND Units 09/20/2022 11/14/2022 11/29/2022 02/07/2023 05/31/2023 Protein, Total 6.3 - 8.0 g/dL 6.9 Albumin 3.9 - 4.9 g/dL 4.1 Calcium 8.5 - 10.2 mg/dL 8.7 9.4 Bilirubin, Total 0.2 - 1.3 mg/dL 0.3 Alkaline Phosphatase 34 - 123 U/L 88 AST 13 - 35 U/L 15 ALT 7 - 38 U/L 13 Glucose 74 - 99 mg/dL 96 101 (H) BUN 7 - 21 mg/dL 14 18 Creatinine 0.58 - 0.96 mg/dL 0.79 0.83 Sodium 136 - 144 mmol/L 136 139 Potassium 3.7 - 5.1 mmol/L 4.7 4.5 Chloride 97 - 105 mmol/L 103 104 CO2 22 - 30 mmol/L 24 26 Anion Gap 9 - 18 mmol/L 9 9 eGFR >=60 mL/min/1.73mA? 81 76 WBC 3.70 - 11.00 k/uL 5.53 RBC 3.90 - 5.20 m/uL 4.80 Hemoglobin 11.5 - 15.5 g/dL 14.6 Hematocrit 36.0 - 46.0 % 44.0 MCV 80.0 - 100.0 fL 91.7 MCH 26.0 - 34.0 pg 30.4 MCHC 30.5 - 36.0 g/dL 33.2 RDW-CV 11.5 - 15.0 % 13.2 Platelet Count 150 - 400 k/uL 305 MPV 9.0 - 12.7 fL 10.4 Absolute nRBC <0.01 k/uL <0.01 Cholesterol, Total <200 mg/dL 232 (H) 237 (H) Triglyceride <150 mg/dL 86 68 HDL Cholesterol >39 mg/dL 61 73 Non HDL Cholesterol <130 mg/dL 171 (H) 164 (H) Fasting Time hrs 12 15 VLDL Cholesterol <30 mg/dL 17 14 TC:HDL Ratio <5.10 3.80 3.25 LDL Cholesterol <100 mg/dL 154 (H) 150 (H) LDL:HDL Ratio <2.54 2.52 2.05 TSH 0.270 - 4.200 mIU/L 1.540 1.420 1.960 1.930 Free T4 0.9 - 1.7 ng/dL 1.4 1.7 1.5 1.4 Vitamin D 25 Hydroxy 31.0 - 80.0 ng/mL 30.7 (L) 41.1 Free T3 2.3 - 4.1 pg/mL 2.4 The 10-year ASCVD risk score (Marvin BOB, et al., 2019) is: 10.6% Values used to calculate the score: Age: 67 years Sex: Female Is Non- : No Diabetic: No Tobacco smoker: No Systolic Blood Pressure: 124 mmHg Is BP treated: Yes HDL Cholesterol: 73 mg/d (more content not included)... [facility] 05-31-2023 Miscellaneous Notes Left detailed vm on identified vm informing patient her Rx was sent to pharmacy. The following approved medication requests have been transmitted electronically. Requested Prescriptions Signed Prescriptions Disp Refills EPINEPHrine (ADRENACLICK) 0.3 mg/0.3 mL auto-injector 2 Each 0 Sig: Inject 0.3 mL intramuscularly as needed. For bee sting allergy Authorizing Provider: DEQUAN HARTMAN MD Noted that prior RX did not have note RE: generic or covered namebrand substitute Patient asking if provider could send new script to pharmacy requesting epi-pen with instructions that state that pt can have generic or name brand Rx. Reports last script was for name brand will cost her $109 and she would like to have generic. Pended for review. Thank you. documented in this encounter [facility] 04-06-2023 Note HNO ID: [id number] Author: Desmond Flores APRN.HELP DESK SPECIALIST Service: ? Author Type: Nurse Practitioner Type: Progress Notes Filed: 04/06/2023 12:28 PM Note Text: Lisset Lawler is a 67 year old female here for a Medicare wellness visit. Right leg with cellulitis. Last routine visit 11/29 with Dequan Hartman MD Reviewed her hypothyroid, vitamin d def, HTN, HLD, depression. Health Risk Assessment In general, health is: Very good Concerns with balance: Not at all Concerns with teeth or dentures: Not at all Concerns with sexual function: Not at all [place] anxious, stressed, angry, irritable, lonely, isolated, or had thoughts of hurting themself: Not at all Has little interest or pleasure in doing things: Not at all Bothered by feeling down, depressed, or hopeless: Several days Needs help with grocery shopping, cooking, housework, bathing, grooming, dressing, eating, sitting or standing, walking, using the toilet, handling finances, taking medications, using the telephone, or driving: No Following safety precautions in the home environment and vehicle: removed throw rugs from floors, installed grab bars in the bathroom, handrails in stairwells, having adequate lighting, wearing seatbelt at all times?: Yes Smokes cigarettes, vapes, or chew tobacco: No Eats healthy foods including fruits, vegetables, whole grains, and fiber-rich foods: More than half the days Number of days per week engages in exercise: 3 days Average alcohol consumption: Monthly or less Current Providers Specialists: I have reviewed specialist-related care of the patient in the medical record. 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 Dennis for breast center Medical/Family history review Reviewed and updated problem list, medical/surgical/family/social history, medications, and allergies. Opioid use review Patient is currently using tramadol. Prescribed tramadol HCl (last 90 days) Does patient have risk factors for opioid abuse? No Pain overview Current pain concerns and treatment plan reviewed. Patient not currently experiencing pain. Depression screening Depression Screening PHQ-2 Score PHQ-9 Score LONNY-2 Total Score LONNY-7 Total Score 06/13/2022 1 3 2 3 Depression screening tool completed and reviewed. Based on score and interview, patient is already diagnosed with depression. Screening tool discussed with patient, and I recommended no further intervention at this time. Cognitive screening Mini Cog Score: 2 Functional Observation Was the patient's timed Up AND Go test unsteady or ? 12 seconds? No Advance Care Planning End of Life planning discussed, including patient's advanced directive wishes: Yes Measurements BP 130/74 Pulse 56 Ht 5' 2.5 (1.59m) Wt 171 lb (77.6kg) SpO2 98% LMP 03/16/2006 BMI 30.76 kg/(m2). Visual acuity (required for Welcome to Medicare): follows with optometry/ophthalmology Hearing Evaluation: within normal limits Physical Exam Vitals and nursing note reviewed. Constitutional: General: She is awake. She is not in acute distress. Appearance: Normal appearance. She is well-developed and well-groomed. She is not ill-appearing, toxic-appearing or diaphoretic. HENT: Head: Normocephalic. Right Ear: External ear normal. Left Ear: External ear normal. Nose: Nose normal. Eyes: General: Vision grossly intact. Conjunctiva/sclera: Conjunctivae normal. Pupils: Pupils are equal, round, and reactive to light. Neck: Vascular: No JVD. Trachea: Trachea normal. Cardiovascular: Rate and Rhythm: Normal rate and regular rhythm. Pulses: Normal pulses. Heart sounds: Normal heart sounds. No murmur heard. Pulmonary: Effort: Pulmonary effort is normal. No accessory muscle usage, prolonged expiration or respiratory distress. Breath sounds: Normal breath sounds. Musculoskeletal: Cervical back: Neck supple. Skin: General: Skin is warm and dry. Capillary Refill: Capillary refill takes less than 2 seconds. Neurological: General: No focal deficit present. Mental Status: She is alert and oriented to person, place, and time. Mental status is at baseline. Psychiatric: Attention and Perception: Attention and perception normal. Mood and Affect: Mood and affect normal. Speech: Speech normal. Behavior: Behavior normal. Behavior is cooperative. Thought Content: Thought content normal. Cognition and Memory: Cognition and memory normal. Judgment: Judgment normal. Assessment/Plan Medicare annual wellness visit, subsequent (Z00.00) - Counseled on healthy diet and regular exercise - Fall avoidance 1. Medicare annual wellness visit, subsequent - ICD9: V70.0, ICD10: Z00.00 (primary diagnosis) - Counseled on healthy diet and regular exercise - Calcium intake with supplements or by diet of 1000 mg/day for under 50, 0688-7569 mg/day for 50+ - Depression sc (more content not included)... [facility] 04-06-2023 History of Presen t illness Narrative Images from the original note were not included. Lisset Lawler is a 67 year old female here for a Medicare wellness visit. Right leg with cellulitis. Last routine visit 11/29 with Dequan Hartman MD Reviewed her hypothyroid, vitamin d def, HTN, HLD, depression. Health Risk Assessment In general, health is: Very good Concerns with balance: Not at all Concerns with teeth or dentures: Not at all Concerns with sexual function: Not at all [place] anxious, stressed, angry, irritable, lonely, isolated, or had thoughts of hurting themself: Not at all Has little interest or pleasure in doing things: Not at all Bothered by feeling down, depressed, or hopeless: Several days Needs help with grocery shopping, cooking, housework, bathing, grooming, dressing, eating, sitting or standing, walking, using the toilet, handling finances, taking medications, using the telephone, or driving: No Following safety precautions in the home environment and vehicle: removed throw rugs from floors, installed grab bars in the bathroom, handrails in stairwells, having adequate lighting, wearing seatbelt at all times?: Yes Smokes cigarettes, vapes, or chew tobacco: No Eats healthy foods including fruits, vegetables, whole grains, and fiber-rich foods: More than half the days Number of days per week engages in exercise: 3 days Average alcohol consumption: Monthly or less Current Providers Specialists: I have reviewed specialist-related care of the patient in the medical record. 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 Dennis for breast center Medical/Family history review Reviewed and updated problem list, medical/surgical/family/social history, medications, and allergies. Opioid use review Patient is currently using tramadol. Prescribed tramadol HCl (last 90 days) Does patient have risk factors for opioid abuse? No Pain overview Current pain concerns and treatment plan reviewed. Patient not currently experiencing pain. Depression screening Depression Screening PHQ-2 Score PHQ-9 Score LONNY-2 Total Score LONNY-7 Total Score 06/13/2022 1 3 2 3 Depression screening tool completed and reviewed. Based on score and interview, patient is already diagnosed with depression. Screening tool discussed with patient, and I recommended no further intervention at this time. Cognitive screening Mini Cog Score: 2 Functional Observation Was the patient's timed Up & Go test unsteady or ? 12 seconds? No Advance Care Planning End of Life planning discussed, including patient's advanced directive wishes: Yes Measurements BP 130/74 Pulse 56 Ht 5' 2.5 (1.59m) Wt 171 lb (77.6kg) SpO2 98% LMP 03/16/2006 BMI 30.76 kg/(m^2). Visual acuity (required for Welcome to Medicare): follows with optometry/ophthalmology Hearing Evaluation: within normal limits Physical Exam Vitals and nursing note reviewed. Constitutional: General: She is awake. She is not in acute distress. Appearance: Normal appearance. She is well-developed and well-groomed. She is not ill-appearing, toxic-appearing or diaphoretic. HENT: Head: Normocephalic. Right Ear: External ear normal. Left Ear: External ear normal. Nose: Nose normal. Eyes: General: Vision grossly intact. Conjunctiva/sclera: Conjunctivae normal. Pupils: Pupils are equal, round, and reactive to light. Neck: Vascular: No JVD. Trachea: Trachea normal. Cardiovascular: Rate and Rhythm: Normal rate and regular rhythm. Pulses: Normal pulses. Heart sounds: Normal heart sounds. No murmur heard. Pulmonary: Effort: Pulmonary effort is normal. No accessory muscle usage, prolonged expiration or respiratory distress. Breath sounds: Normal breath sounds. Musculoskeletal: Cervical back: Neck supple. Skin: General: Skin is warm and dry. Capillary Refill: Capillary refill takes less than 2 seconds. Neurological: General: No focal deficit present. Mental Status: She is alert and oriented to person, place, and time. Mental status is at baseline. Psychiatric: Attention and Perception: Attention and perception normal. Mood and Affect: Mood and affect normal. Speech: Speech normal. Behavior: Behavior normal. Behavior is cooperative. Thought Content: Thought content normal. Cognition and Memory: Cognition and memory normal. Judgment: Judgment normal. Assessment/Plan Medicare annual wellness visit, subsequent (Z00.00) - Counseled on healthy diet and regular exercise - Fall avoidance 1. Medicare annual wellness visit, subsequent - ICD9: V70.0, ICD10: Z00.00 (primary diagnosis) - Counseled on healthy diet and regular exercise - Calcium intake with supplements or by diet of 1000 mg/day for under 50, 6727-9137 mg/day for 50+ - Depression screening tool completed and reviewed with patient. Based on score and interview, patient is already diagnosed with depression and recommended no further intervention at this time. 2. Hyperlipidemia, unspecified hyperlipidemia type - ICD9: 272.4, ICD10: E78.5 Stable. 3. Acquired hypothyroidism - ICD9: 244.9, ICD10: E03.9 Stable 4. Major depressive disorder, recurrent episode, moderate (HCC) - ICD9: 296.32, ICD10: F33.1 Stable 5. Obesity, Class I, BMI 30-34.9 - ICD9: 278.00, ICD10: E66.9 6. Mild cognitive impairment - ICD9: 331.83, ICD10: G31.84 Discussed ways to prevent worsening memory. Reviewed minicog results in depth. She would like to try OTC supplements and other activities to engage the mind. 7. Cellulitis of right lower extremity - ICD9: 682.6, ICD10: L03.115 Improving, noted decreased warmth, pain and swelling on exam today. Continue the bactrim. Desmond Flores APRN.CNP documented in this encounter [facility] 04-06-2023 Instructions Desmond Flores APRN.CNP - 04/06/2023 10:54 AM EDT Can try Neuriva to help memory. Screening schedule The following prevention plan is recommended: BP Controlled (<130/80) Never done Influenza Vaccine(1) due on 03/16/2023 WHAT YOU CAN DO TO PREVENT FALLS Many falls can be prevented. By making some changes, you can lower your chances of falling. Four things YOU can do to prevent falls for you* and your caregiver 1. Begin a regular exercise program Exercise is one of the most important ways to lower your chances of falling. It makes you stronger and helps you feel better. Exercises that improve balance and coordination (like Fareed Chi) are the most helpful. Lack of exercise leads to weakness and increases your chances of falling. Ask your doctor or health care provider about the best type of exercise program for you. 2. Have your health care provider review your medicines Have your doctor or pharmacist review all the medicines you take, even vxhy-hox-[id number] medicines. As you get older, the way medicines work in your body can change. Some medicines, or combinations of medicines, can make you sleepy or dizzy and can cause you to fall. 3. Have your vision checked Have your eyes checked by an eye doctor at least once a year. You may be wearing the wrong glasses or have a condition like glaucoma or cataracts that limits your vision. Poor vision can increase your chances of falling. 4. Make your home safer About half of all falls happen at home. To make your home safer: Remove things you can trip over (like papers, books, clothes, and shoes) from stairs and places where you walk. Remove small throw rugs or use double-sided tape to keep the rugs from slipping. Keep items you use often in cabinets you can reach easily without using a step stool. Have grab bars put in next to your toilet and in the tub or shower. Use non-slip mats in the bathtub and on shower floors. Improve the lighting in your home. As you get older, you need brighter lights to see well. Hang light-weight curtains or shades to reduce glare. Have handrails and lights put in on all staircases. Wear shoes both inside and outside the house. Avoid going barefoot or wearing slippers. For more information, contact: Centers for Disease Control and Prevention www.cdc.gov/injury * This information may not apply if you have certain medical conditions. documented in this encounter [facility] 04-03-2023 Note HNO ID: [id number] Author: Desmond Flores APRN.LENORA Service: ? Author Type: Nurse Practitioner Type: Progress Notes Filed: 04/03/2023 4:10 PM Note Text: SUBJECTIVE Lisset Lawler is a 67 year old female here today for acute concern. Chief Complaint Patient presents with: Insect Bite: follow up from visit on right foot HPI Lisset Lawler is a 67 year old female established patient. Presents today for follow up from being seen at for a bite on the right foot. On doxycycline. Injury occurred 03/[address] [facility]. Not itching. IT is still red, swollen, slight warmth to the touch. No prior antibiotic issues. Her medications were reviewed today and her list is now up to date. Medications Current Outpatient Medications Medication Sig EPINEPHrine (ADRENACLICK) 0.3 mg/0.3 mL auto-injector Inject 0.3 mL intramuscularly as needed. For bee sting allergy levothyroxine (SYNTHROID) 112 mcg tablet Take 1 tablet by mouth once daily. Take on empty stomach. For Thyroid metoprolol succinate ER (TOPROL XL) 50 mg 24 hr tablet Take 1 tablet by mouth once daily. venlafaxine (EFFEXOR) 25 mg tablet Take 1 tablet by mouth daily with dinner. triamcinolone acetonide (KENALOG) 0.1 % cream Apply sparingly to area for rash/itching. traMADol (ULTRAM) 50 mg tablet Take 1 tablet by mouth every 6 hours as needed for up to 180 days. Cholecalciferol, Vitamin D3, 50 mcg (2,000 unit) cap Take 1 capsule by mouth once daily. FABI-600 WITH VITAMIN D 600 MG-200 UNIT TAB Take by mouth. sulfamethoxazole-trimethoprim (BACTRIM DS) 800-160 mg per tablet Take 1 tablet by mouth twice daily for 7 days. No current facility-administered medications for this visit. ALLERGIES Allergen Reactions Beestings [Other] Nickel Perfumes Tape [Other] ACTIVE PROBLEM LIST Major Depressive Disorder, Recurrent Episode, Moderate (Hcc) - 07/13/2021 Lonny (Generalized Anxiety Disorder) - 07/13/2021 Family History of Breast Cancer Comment: Mother, Sister and 2 Aunts Bee Sting Allergy - 12/18/2016 Migraine Without Aura, Without Mention of Intractable Migraine Without Mention of Status Migrainosus - 06/06/2006 ARTHRALGIA MULTIPLE SITES - 06/06/2006 Hyperlipidemia, Unspecified - 06/06/2006 Hypothyroidism Social History Tobacco Use Smoking status: Former Packs/day: 0.50 Years: 20.00 Additional pack years: 0.00 Total pack years: 10.00 Types: Cigarettes Quit date: 03/16/2013 Years since quittin.0 Smokeless tobacco: Never Vaping Use Vaping Use: Never used Substance Use Topics Alcohol use: No Drug use: No Review of Systems Skin: Positive for color change. Negative for pallor, rash and wound. OBJECTIVE BP 150/70 Pulse 65 Wt 174 lb (78.9kg) SpO2 97% LMP 03/16/2006 Physical Exam Vitals and nursing note reviewed. Constitutional: General: She is awake. She is not in acute distress. Appearance: Normal appearance. She is well-developed and well-groomed. She is not ill-appearing, toxic-appearing or diaphoretic. HENT: Head: Normocephalic. Right Ear: External ear normal. Left Ear: External ear normal. Nose: Nose normal. Eyes: General: Vision grossly intact. Conjunctiva/sclera: Conjunctivae normal. Pupils: Pupils are equal, round, and reactive to light. Neck: Vascular: No JVD. Trachea: Trachea normal. Cardiovascular: Pulses: Normal pulses. Pulmonary: Effort: Pulmonary effort is normal. No accessory muscle usage, prolonged expiration or respiratory distress. Musculoskeletal: Cervical back: Neck supple. Right lower leg: No edema. Left lower leg: No edema. Skin: General: Skin is warm and dry. Capillary Refill: Capillary refill takes less than 2 seconds. Neurological: General: No focal deficit present. Mental Status: She is alert and oriented to person, place, and time. Mental status is at baseline. Psychiatric: Attention and Perception: Attention and perception normal. Mood and Affect: Mood and affect normal. Speech: Speech normal. Behavior: Behavior normal. Behavior is cooperative. Thought Content: Thought content normal. Cognition and Memory: Cognition and memory normal. Judgment: Judgment normal. ASSESSMENT/PLAN: 1. Cellulitis of right lower extremity - ICD9: 682.6, ICD10: L03.115 (primary diagnosis) - Begin treatment with Trimethoprim-sulfamethozazole (Bactrim) and stop doxycycline - No lymphangetic streaking, this was defined for patient to watch for and to seek medical care immediately if appears - Area of cellulitis defined, seek further attention if this area continues to enlarge - Follow up for recheck in three days - SULFAMETHOXAZOLE 800 MG-TRIMETHOPRIM 160 MG TABLET 2. Insect bite of right foot, initial encounter - ICD9: 917.4, E906.4, ICD10: S90.861A, W57.XXXA Portions of this note have been entered by ancillary staff. I have reviewed and when necessary edited, so that they are an adequate record of my encounter with t (more content not included)... [facility] 04-03-2023 History of Presen t illness Narrative Images from the original note were not included. SUBJECTIVE Lisset Lawler is a 67 year old female here today for acute concern. Chief Complaint Patient presents with: Insect Bite: follow up from visit on right foot HPI Lisset Lawler is a 67 year old female established patient. Presents today for follow up from being seen at for a bite on the right foot. On doxycycline. Injury occurred 03/[address] [facility]. Not itching. IT is still red, swollen, slight warmth to the touch. No prior antibiotic issues. Her medications were reviewed today and her list is now up to date. Medications Current Outpatient Medications Medication Sig EPINEPHrine (ADRENACLICK) 0.3 mg/0.3 mL auto-injector Inject 0.3 mL intramuscularly as needed. For bee sting allergy levothyroxine (SYNTHROID) 112 mcg tablet Take 1 tablet by mouth once daily. Take on empty stomach. For Thyroid metoprolol succinate ER (TOPROL XL) 50 mg 24 hr tablet Take 1 tablet by mouth once daily. venlafaxine (EFFEXOR) 25 mg tablet Take 1 tablet by mouth daily with dinner. triamcinolone acetonide (KENALOG) 0.1 % cream Apply sparingly to area for rash/itching. traMADol (ULTRAM) 50 mg tablet Take 1 tablet by mouth every 6 hours as needed for up to 180 days. Cholecalciferol, Vitamin D3, 50 mcg (2,000 unit) cap Take 1 capsule by mouth once daily. FABI-600 WITH VITAMIN D 600 MG-200 UNIT TAB Take by mouth. sulfamethoxazole-trimethoprim (BACTRIM DS) 800-160 mg per tablet Take 1 tablet by mouth twice daily for 7 days. No current facility-administered medications for this visit. ALLERGIES Allergen Reactions Beestings [Other] Nickel Perfumes Tape [Other] ACTIVE PROBLEM LIST Major Depressive Disorder, Recurrent Episode, Moderate (Hcc) - 07/13/2021 Lonny (Generalized Anxiety Disorder) - 07/13/2021 Family History of Breast Cancer Comment: Mother, Sister and 2 Aunts Bee Sting Allergy - 12/18/2016 Migraine Without Aura, Without Mention of Intractable Migraine Without Mention of Status Migrainosus - 06/06/2006 ARTHRALGIA MULTIPLE SITES - 06/06/2006 Hyperlipidemia, Unspecified - 06/06/2006 Hypothyroidism Social History Tobacco Use Smoking status: Former Packs/day: 0.50 Years: 20.00 Additional pack years: 0.00 Total pack years: 10.00 Types: Cigarettes Quit date: 03/16/2013 Years since quittin.0 Smokeless tobacco: Never Vaping Use Vaping Use: Never used Substance Use Topics Alcohol use: No Drug use: No Review of Systems Skin: Positive for color change. Negative for pallor, rash and wound. OBJECTIVE BP 150/70 Pulse 65 Wt 174 lb (78.9kg) SpO2 97% LMP 03/16/2006 Physical Exam Vitals and nursing note reviewed. Constitutional: General: She is awake. She is not in acute distress. Appearance: Normal appearance. She is well-developed and well-groomed. She is not ill-appearing, toxic-appearing or diaphoretic. HENT: Head: Normocephalic. Right Ear: External ear normal. Left Ear: External ear normal. Nose: Nose normal. Eyes: General: Vision grossly intact. Conjunctiva/sclera: Conjunctivae normal. Pupils: Pupils are equal, round, and reactive to light. Neck: Vascular: No JVD. Trachea: Trachea normal. Cardiovascular: Pulses: Normal pulses. Pulmonary: Effort: Pulmonary effort is normal. No accessory muscle usage, prolonged expiration or respiratory distress. Musculoskeletal: Cervical back: Neck supple. Right lower leg: No edema. Left lower leg: No edema. Skin: General: Skin is warm and dry. Capillary Refill: Capillary refill takes less than 2 seconds. Neurological: General: No focal deficit present. Mental Status: She is alert and oriented to person, place, and time. Mental status is at baseline. Psychiatric: Attention and Perception: Attention and perception normal. Mood and Affect: Mood and affect normal. Speech: Speech normal. Behavior: Behavior normal. Behavior is cooperative. Thought Content: Thought content normal. Cognition and Memory: Cognition and memory normal. Judgment: Judgment normal. ASSESSMENT/PLAN: 1. Cellulitis of right lower extremity - ICD9: 682.6, ICD10: L03.115 (primary diagnosis) - Begin treatment with Trimethoprim-sulfamethozazole (Bactrim) and stop doxycycline - No lymphangetic streaking, this was defined for patient to watch for and to seek medical care immediately if appears - Area of cellulitis defined, seek further attention if this area continues to enlarge - Follow up for recheck in three days - SULFAMETHOXAZOLE 800 MG-TRIMETHOPRIM 160 MG TABLET 2. Insect bite of right foot, initial encounter - ICD9: 917.4, E906.4, ICD10: S90.861A, W57.XXXA Portions of this note have been entered by ancillary staff. I have reviewed and when necessary edited, so that they are an adequate record of my encounter with this patient Please note that parts of this document were created using voice recognition software and therefore may contain grammatical errors. Patient verbalizes understanding of instructions from today's visit and in agreement with treatment plan. Questions answered. Agrees to call the office if questions, concerns of issues with acute symptoms not improving or if they worsen. See diagnoses and orders for additional plan(s). Allergies and medications were reviewed, list was updated, and refills given if needed. Past medical, surgical, social, and family history reviewed and updated as appropriate. Encouraged proper diet & exercise as well as compliance with taking medications. Age-appropriate health preventative measures were discussed. Return if symptoms worsen or fail to improve, for Keep next scheduled appointment.. Desmond Flores APRN-LENORA documented in this encounter [facility] 02-12-2023 Miscellaneous Notes Patient is requesting a 90 day supply as it is cheaper for her. Patient phones requesting refills as follows: Requested Prescriptions Pending Prescriptions Disp Refills levothyroxine (SYNTHROID) 112 mcg tablet 90 tablet 3 Sig: Take 1 tablet by mouth once daily. Take on empty stomach. For Thyroid Please review and advise. Torri Posada LPN documented in this encounter [facility] 01-03-2023 Miscellaneous Notes Okayed Addended by: DALILA AQUINO LPN on: 01/03/2023 05:52 PM Modules accepted: Orders Patient also requesting Venlafexine RX to pended pharmacy. The metoprolol RX faxed to the pharmacy of patient choice due to order had been printed out. Dalila Aquino LPN Detailed VM left on pt's identified voicemail of information below. Alondra Euceda LPN Okayed Patient has been identified by name and date of : Yes Patient phones for refill(s): Requested Prescriptions Pending Prescriptions Disp Refills metoprolol succinate ER (TOPROL XL) 50 mg 24 hr tablet 90 tablet 1 Sig: Take 1 tablet by mouth once daily. Date of last office visit in primary care: 11/29/2022 Next appointment scheduled 04/04/2023 Please advise. Thank you. Glenda Baez LPN documented in this encounter [facility] 12-18-2022 Note HNO ID: [id number] Author: Flaca Dennis MD Service: ? 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 today for follow up (last seen in 2019). The patient denies any breast masses, pain, skin changes or nipple discharge. Screening mammogram 11/28/21 showed a focal asymmetry of the Left breast for which diagnostic imaging was obtained at on 12/20/21 with recommendation for biopsy. Images reviewed at [facility] and US guided biopsy of 1.3cm lesion in Left breast at 8 o'clock 3cmfn showed fibrocystic change including apocrine microcysts, UDH, and adenosis, deemed concordant. 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 BMD: Yes, Date in [facility]: 09/30; lowest T Score - 1.1 History pertaining to prior breast biopsies, genetic reports, pathology reports, treatment summaries, personal, social and family history has been extracted from Dr Beckham's note dated 11/13/2019. PERSONAL BREAST HISTORY: Past breast history (prior to this encounter) is as follows: Breast biopsy: 12/20/21 Left breast 8pm 3cmfn UDH, apocrine metaplasia, benign adenosis; benign biopsies in 1994 and 1996 per her report. Breast cysts: No Breast surgery: No Breast cancer: No CANCER SURVEILLANCE: Mammograms: 11/28/21 DBT focal asymmetry L breast as above; 07/05/22 Left diag negative (short term f/up to biopsy) Breast MRI: No Colonoscopy: Yes, Date in [facility]: 06/28; results - negative RISK FACTORS FOR BREAST CANCER: Age at the onset of menses: 9 years of age. P: 2 Age at the of first child: 20 years of age. She did not breast feed. Age at menopause: 50 years of age. Post-menopausal hormone therapy: No She has an intact uterus and ovaries She is postmenopausal and does not use control. History of Mantle Radiation prior to the age of 28: No Obesity: No Current Weight: 159 Mammographic density: There are scattered fibroglandular densities Personal History of Benign Atypical Breast Biopsy: No Alcohol use: Rare PAST MEDICAL HISTORY: PAST MEDICAL HISTORY Diagnosis Date Arthritis both knees Chronic rhinitis 06/06/2006 Diarrhea Esophagitis, unspecified External hemorrhoids without mention of complication Family history of breast cancer Mother, Sister and 2 Aunts HIGH BLOOD PRESSURE-NO HYPERTENSN 06/06/2006 Hip strain 02/22/2015 Hypertension Internal hemorrhoids without mention of complication Pain in joint, forearm 09/16/2012 Unspecified constipation Unspecified hypothyroidism VAGINITIS ATROPHIC 06/06/2006 Patient specifically denies history of: DVT, PE, abnormal uterine bleeding and abnormal uterine biopsies. She does have mild osteopenia and a history of migraine without aura (has hardly had one since she stopped working). PAST SURGICAL HISTORY: PAST SURGICAL HISTORY Procedure Laterality Date APPENDECTOMY COLONOSCOPY FLX DX W/COLLJ SPEC WHEN PFRMD 06/21/2005 Colonoscopy-repeat in COLONOSCOPY FLX DX W/COLLJ SPEC WHEN PFRMD 06/22/2014 Colonoscopy COLONOSCOPY FLX DX W/COLLJ SPEC WHEN PFRMD 05/19/2019 repeat colon in 5 years DESTRUCTION HEMORRHOIDS,INT/UR COORDINATOR EGD 08/11/2022 ESOPHAGOGASTRODUODENOSCOPY TRANSORAL DIAGNOSTIC 09/12/2000 EGD EYE SURGERY HX SKIN BIOPSY HX TUBAL LIGATION HX SOCIAL HISTORY: Social History Tobacco Use Smoking status: Former Packs/day: 0.50 Years: 20.00 Pack years: 10.00 Types: Cigarettes Quit date: 03/16/2013 Years since quittin.7 Smokeless tobacco: Never Vaping Use Vaping Use: Never used Substance Use Topics Alcohol use: No Drug use: No Caffeine intake: 2 / day Exercise: 3 miles at least 3 days per week FAMILY HISTORY: Family history of breast cancer: Mother at 82, Sister at 66, maternal cousin at 55, paternal aunt at 80, paternal cousin at 75, paternal cousin at 50 Family history of ovarian cancer: Paternal aunt at 53 Number of sisters: 1 Number of maternal aunts: 5 Number of paternal aunts: 3 Ashkenazi Ancestry: no Has Patient had Genetic Testing? Yes , JOSE as above Other Cancer: 4 paternal uncles had prostate/lung cancer, father had prostate cancer at 70 and brother had prostate cancer at 62. There is no family history of pros (more content not included)... [facility] 12-18-2022 Note HNO ID: [id number] Author: Alena BanksLenovo Leslie Service: ? Author Type: Industrial Green Systems Designer Type: Progress Notes Filed: 12/18/2022 12:17 PM Note Text: Radiology Service Progress Note PATIENT NAME: Lisset Lawler DATE OF SERVICE: December 18, 2022 TIME: 12:17 PM PATIENT IDENTITY VERIFICATION COMPLETED USING TWO (2) IDENTIFIERS: Name and Date of confirmed by patient verbally. FALL SCREENING: Has the patient had 2 falls in the last year or 1 fall with injury or currently using an Ambulatory Assistive Device (Walker, Cane, Wheelchair, Crutches, etc.)? No PATIENT GENDER DATA: Female. status: : No status: NO. PATIENT RELEVANT IMPLANT DATA REVIEWED: Not Applicable RADIOLOGY DEPARTMENT: Mammography PERIPHERAL IV DATA: Not applicable SIGNED BY: Lilia Jauregui Maiyet December 18, 2022 12:17 PM [facility] 12-18-2022 History of Presen t illness Narrative MEDICAL BREAST PATIENT NAME: Lisset Lawler HISTORY of PRESENT ILLNESS: Lisset Lawler is a 67 year old year old postmenopausal Retired [employer] with history of JOSE who presents to the [facility] today for follow up (last seen in 2019). The patient denies any breast masses, pain, skin changes or nipple discharge. Screening mammogram 11/28/21 showed a focal asymmetry of the Left breast for which diagnostic imaging was obtained at on 12/20/21 with recommendation for biopsy. Images reviewed at [facility] and US guided biopsy of 1.3cm lesion in Left breast at 8 o'clock 3cmfn showed fibrocystic change including apocrine microcysts, UDH, and adenosis, deemed concordant. 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 BMD: Yes, Date in [facility]: 09/30; lowest T Score - 1.1 History pertaining to prior breast biopsies, genetic reports, pathology reports, treatment summaries, personal, social and family history has been extracted from Dr Beckham's note dated 11/13/2019. PERSONAL BREAST HISTORY: Past breast history (prior to this encounter) is as follows: Breast biopsy: 12/20/21 Left breast 8pm 3cmfn UDH, apocrine metaplasia, benign adenosis; benign biopsies in 1994 and 1996 per her report. Breast cysts: No Breast surgery: No Breast cancer: No CANCER SURVEILLANCE: Mammograms: 11/28/21 DBT focal asymmetry L breast as above; 07/05/22 Left diag negative (short term f/up to biopsy) Breast MRI: No Colonoscopy: Yes, Date in [facility]: 06/28; results - negative RISK FACTORS FOR BREAST CANCER: Age at the onset of menses: 9 years of age. P: 2 Age at the of first child: 20 years of age. She did not breast feed. Age at menopause: 50 years of age. Post-menopausal hormone therapy: No She has an intact uterus and ovaries She is postmenopausal and does not use control. History of Mantle Radiation prior to the age of 28: No Obesity: No Current Weight: 159 Mammographic density: There are scattered fibroglandular densities Personal History of Benign Atypical Breast Biopsy: No Alcohol use: Rare PAST MEDICAL HISTORY: PAST MEDICAL HISTORY Diagnosis Date Arthritis both knees Chronic rhinitis 06/06/2006 Diarrhea Esophagitis, unspecified External hemorrhoids without mention of complication Family history of breast cancer Mother, Sister and 2 Aunts HIGH BLOOD PRESSURE-NO HYPERTENSN 06/06/2006 Hip strain 02/22/2015 Hypertension Internal hemorrhoids without mention of complication Pain in joint, forearm 09/16/2012 Unspecified constipation Unspecified hypothyroidism VAGINITIS ATROPHIC 06/06/2006 Patient specifically denies history of: DVT, PE, abnormal uterine bleeding and abnormal uterine biopsies. She does have mild osteopenia and a history of migraine without aura (has hardly had one since she stopped working). PAST SURGICAL HISTORY: PAST SURGICAL HISTORY Procedure Laterality Date APPENDECTOMY COLONOSCOPY FLX DX W/COLLJ SPEC WHEN PFRMD 06/21/2005 Colonoscopy-repeat in COLONOSCOPY FLX DX W/COLLJ SPEC WHEN PFRMD 06/22/2014 Colonoscopy COLONOSCOPY FLX DX W/COLLJ SPEC WHEN PFRMD 05/19/2019 repeat colon in 5 years DESTRUCTION HEMORRHOIDS,INT/UR COORDINATOR EGD 08/11/2022 ESOPHAGOGASTRODUODENOSCOPY TRANSORAL DIAGNOSTIC 09/12/2000 EGD EYE SURGERY HX SKIN BIOPSY HX TUBAL LIGATION HX SOCIAL HISTORY: Social History Tobacco Use Smoking status: Former Packs/day: 0.50 Years: 20.00 Pack years: 10.00 Types: Cigarettes Quit date: 03/16/2013 Years since quittin.7 Smokeless tobacco: Never Vaping Use Vaping Use: Never used Substance Use Topics Alcohol use: No Drug use: No Caffeine intake: 2 / day Exercise: 3 miles at least 3 days per week FAMILY HISTORY: Family history of breast cancer: Mother at 82, Sister at 66, maternal cousin at 55, paternal aunt at 80, paternal cousin at 75, paternal cousin at 50 Family history of ovarian cancer: Paternal aunt at 53 Number of sisters: 1 Number of maternal aunts: 5 Number of paternal aunts: 3 Ashkenazi Ancestry: no Has Patient had Genetic Testing? Yes , JOSE as above Other Cancer: 4 paternal uncles had prostate/lung cancer, father had prostate cancer at 70 and brother had prostate cancer at 62. There is no family history of prostate, colon, uterine, pancreatic, gastric, brain, renal cell or thyroid cancer. There is no family history of melanoma, sarcoma or leukemia. Osteoporosis: Mother at 65 Stroke: Father has had a few but is 93 and lives independently. Blood Clot: Mother had UNPROVOKED PE IN HER 60s followed by DVT a few years later Heart attack: None Thyroid Nodule or Goiter: None Autism: None FAMILY HISTORY Problem Relation Age of Onset Hypertension Mother Breast Cancer Mother 85 Hypertension Father Prostate Cancer Father 70 Skin Cancer Father BCC, SCC, melanoma Breast Cancer Sister 67 Prostate Cancer Brother diagnosed 2017 other (lung cancer) Brother Breast Cancer Paternal Aunt 80 other (Other/gynecological cancer) Paternal Aunt 53 Prostate Cancer Paternal Uncle Prostate Cancer Paternal Uncle Dx: around 73 yo other (Other/lung) Paternal Uncle 70 other (Other/lung) Paternal Uncle 73 other (Other) Maternal Grandmother 88 Throat/oral cancer other (Other) Maternal Grandfather Lung cancer other (juvinille diabetic) Son Breast Cancer Other 55 Maternal first cousin other (Other/vulvar cancer) Other 44 Maternal first cousin Breast Cancer Other 35 Maternal first cousin's daughter Colon Cancer Other Paternal first cousin Prostate Cancer Other 70 Paternal first cousin Breast Cancer Other 80 Paternal first cousin other (lung) Other Paternal first cousin Prostate Cancer Other 82 Paternal first cousin Breast Cancer Other 50 Breast Cancer Other 25 Paternal first cousin's daughter Breast Cancer Other 40 Paternal first cousin's daughter Breast Cancer Other 50 Paternal first cousin's daughter Breast Cancer Other Paternal first cousin's daughter MEDICATIONS: EPINEPHrine (ADRENACLICK) 0.3 mg/0.3 mL auto-injector Inject 0.3 mL intramuscularly as needed. For bee sting allergy levothyroxine (SYNTHROID) 112 mcg tablet Take 1 tablet by mouth once daily. Take on empty stomach. For Thyroid venlafaxine (EFFEXOR) 25 mg tablet Take 1 tablet by mouth daily with dinner. metoprolol succinate ER (TOPROL XL) 50 mg 24 hr tablet Take 1 tablet by mouth once daily. triamcinolone acetonide (KENALOG) 0.1 % cream Apply sparingly to area for rash/itching. traMADol (ULTRAM) 50 mg tablet Take 1 tablet by mouth every 6 hours as needed for up to 180 days. Cholecalciferol, Vitamin D3, 50 mcg (2,000 unit) cap Take 1 capsule by mouth once daily. FABI-600 WITH VITAMIN D 600 MG-200 UNIT TAB Take by mouth. (Patient not taking: Reported on 11/29/2022) ALLERGIES: ALLERGIES Allergen Reactions Beestings [Other] Nickel Perfumes Tape [Other] REVIEW OF SYSTEMS: She denies chest pain, SOB. She is now on BP and anxiety medications, relates this to stress of her parents both passing away in the last 2 years. PHYSICAL EXAM: Ht 167.6 cm (5' 6 ) Wt 77.1 kg (170 lb) LMP 03/16/2006 BMI 27.44 kg/m General: well-nourished, healthy, female, alert and oriented x 3, calm Skin: warm, dry, skin color, texture, turgor normal Head/Eyes: normocephalic, atraumatic, and anicteric Breasts and Regional Lymph Nodes: The patient was examined in the upright and supine positions. There is no concerning supraclavicular, infraclavicular or axillary lymphadenopathy. The breasts are symmetrical in appearance without visible skin or nipple changes. There are no dominant breast masses or nipple discharge bilaterally. The breasts were non-tender. There was mild to moderate fibrocystic change throughout. Chest - clear Cor - rrr, no m/r/g Abd - soft, no hepatomegaly IMAGING: Digital Breast Tomosynthesis was performed today and the patient will be notified of the results. There are scattered fibroglandular densities. We reviewed her breast density together. Assessment IMPRESSION/PLAN: Lisset Lawler is a 67 year old year old female with bilateral fibrocystic change and increased risk for breast cancer due to FH/JOSE mutation Her residual lifetime risk for breast for breast cancer per [email or web address] today was 28%. NF1 does increase breast cancer risk between the ages of 30 and 50. [facility] Care path does not recommend MRI screening past 65 and she is not mammographically dense. She will be followed twice yearly with annual DBT. Genetics referral made: No: Reason: Tested as above. There is no FH of pancreatic cancer. She has 2 adult sons one of whom has 2 daughters. We discussed recommendation for him to undergo testing for benefit of the granddaughters when they get older. Chemoprevention discussion: Chemoprevention was discussed at length with the patient at her last visit. Given her pre-existing osteopenia, migraine (without aura), and is very concerned about the possible side effects of DVT/PE/CVA given her FH. She decided AGAINST preventive medication with Dr Beckham at their previous visit. The patient is advised to exercise regularly, achieve/maintain ideal body weight, and to limit alcohol consumption to less than 7 drinks weekly for breast cancer risk reduction and overall health. vitamin D She will call me in the interim should she have any questions or concerns. I spent a total of 30 minutes on the date of the service which included preparing to see the patient, [id number] patient care, completing clinical documentation, obtaining and/or reviewing separately obtained history, performing a medically appropriate examination, counseling and educating the patient/family/caregiver, ordering medications, tests, or procedures, communicating with other HCPs (not separately reported), independently interpreting results (not separately reported), communicating results to the patient/family/caregiver, and care coordination (not separately reported). Flaca Dennis MD Medical Breast Specialist CC: Dequan Hartman MD [address] [place] [address] documented in this encounter [facility] 12-18-2022 History of Presen t illness Narrative Radiology Service Progress Note PATIENT NAME: Lisset Lawler DATE OF SERVICE: December 18, 2022 TIME: 12:17 PM PATIENT IDENTITY VERIFICATION COMPLETED USING TWO (2) IDENTIFIERS: Name and Date of confirmed by patient verbally. FALL SCREENING: Has the patient had 2 falls in the last year or 1 fall with injury or currently using an Ambulatory Assistive Device (Walker, Cane, Wheelchair, Crutches, etc.)? No PATIENT GENDER DATA: Female. status: : No status: NO. PATIENT RELEVANT IMPLANT DATA REVIEWED: Not Applicable RADIOLOGY DEPARTMENT: Mammography PERIPHERAL IV DATA: Not applicable SIGNED BY: Alena Bankso Leslie December 18, 2022 12:17 PM documented in this encounter [facility] 11-29-2022 Note HNO ID: [id number] Author: Dequan Hartman MD Service: ? Author Type: Physician Type: Progress Notes Filed: 12/31/2022 11:12 PM Note Text: This note was created using DIVINE B[employer]. Subjective Lisset Lawler is a 67 year old female. Patient presents with: F/U 6 months: Labs prior SUBJECTIVE: Lisset Lawler is a 67 year old year old lady here today for 6 month follow up appointment for review of medical conditions. Has been on healthy diet and lost 7 pounds in 3 weeks. Lower calorie diet. Charts what she eats. Rarely over 1200 calories. More fruits and veggies. Noted was not taking Vitamin D or calcium supplements after ran out. Standing order TSH and T4 not done with other labs. Still with ongoing fatigue. Sleeping good. Top of right foot with swelling that has persisted. No pain. No joint pain or swelling. Did drop of HCDPOA and LW paperwork PAST MEDICAL HISTORY Diagnosis Date Arthritis both knees Chronic rhinitis 06/06/2006 Diarrhea Esophagitis, unspecified External hemorrhoids without mention of complication Family history of breast cancer Mother, Sister and 2 Aunts HIGH BLOOD PRESSURE-NO HYPERTENSN 06/06/2006 Hip strain 02/22/2015 Hypertension Internal hemorrhoids without mention of complication Pain in joint, forearm 09/16/2012 Unspecified constipation Unspecified hypothyroidism VAGINITIS ATROPHIC 06/06/2006 Current Outpatient Medications Medication Sig venlafaxine (EFFEXOR) 25 mg tablet Take 1 tablet by mouth daily with dinner. metoprolol succinate ER (TOPROL XL) 50 mg 24 hr tablet Take 1 tablet by mouth once daily. levothyroxine (SYNTHROID) 112 mcg tablet Take 1 tablet by mouth once daily. Take on empty stomach. For Thyroid triamcinolone acetonide (KENALOG) 0.1 % cream Apply sparingly to area for rash/itching. levothyroxine (SYNTHROID) 112 mcg tablet Take 1 tablet by mouth once daily. Take on empty stomach. For Thyroid (Patient not taking: Reported on 11/29/2022) EPINEPHrine (ADRENACLICK) 0.3 mg/0.3 mL auto-injector Inject 0.3 mL intramuscularly as needed. For bee sting allergy (Patient not taking: Reported on 11/29/2022) traMADol (ULTRAM) 50 mg tablet Take 1 tablet by mouth every 6 hours as needed for up to 180 days. Cholecalciferol, Vitamin D3, 50 mcg (2,000 unit) cap Take 1 capsule by mouth once daily. (Patient not taking: Reported on 11/29/2022) FABI-600 WITH VITAMIN D 600 MG-200 UNIT TAB Take by mouth. (Patient not taking: Reported on 11/29/2022) No current facility-administered medications for this visit. Review of Systems Objective BP 138/86 Pulse 62 Temp 36.3 ?C (97.3 ?F) Resp 18 Wt 78 kg (172 lb) LMP 03/16/2006 SpO2 97% BMI 27.76 kg/m? Last 5 Encounter Wt Readings: Date: Wt: 11/29/2022 78 kg (172 lb) 08/18/2022 79.8 kg (176 lb) 08/10/2022 79.8 kg (176 lb) 07/05/2022 82.6 kg (182 lb 3.2 oz) 06/14/2022 81.6 kg (180 lb) No waist measurement recorded Estimated body mass index is 27.76 kg/m? as calculated from the following: Height as of 08/18/22: 167.6 cm (5' 6 ). Weight as of this encounter: 78 kg (172 lb). Last 5 Encounter BP Readings: Date: BP: 11/29/2022 138/86 08/18/2022 126/84 08/11/2022 169/88 08/10/2022 142/86 07/05/2022 160/90 11/29/22 0944 11/29/22 1103 BP: 138/86 122/78 Pulse: 62 Resp: 18 Temp: 36.3 ?C (97.3 ?F) SpO2: 97% Weight: 78 kg (172 lb) Physical Exam Constitutional: Appearance: Normal appearance. HENT: Head: Normocephalic. Eyes: Conjunctiva/sclera: Conjunctivae normal. Cardiovascular: Rate and Rhythm: Normal rate and regular rhythm. Heart sounds: Normal heart sounds. Comments: Top of right foot with some mild swelling; no tenderness. No synovitis. Pulmonary: Effort: Pulmonary effort is normal. Breath sounds: Normal breath sounds. Skin: General: Skin is warm and dry. Neurological: General: No focal deficit present. Mental Status: She is alert and oriented to person, place, and time. Psychiatric: Mood and Affect: Mood normal. Behavior: Behavior normal. Thought Content: Thought content normal. Judgment: Judgment normal. Component Latest Ref Rng AND Units 08/16/2021 12/01/2021 02/06/2022 06/05/2022 09/20/2022 11/14/2022 Protein, Total 6.3 - 8.0 g/dL 6.9 Albumin 3.9 - 4.9 g/dL 4.1 Calcium 8.5 - 10.2 mg/dL 8.7 Bilirubin, Total 0.2 - 1.3 mg/dL 0.3 Alkaline Phosphatase 34 - 123 U/L 88 AST 13 - 35 U/L 15 ALT 7 - 38 U/L 13 Glucose 74 - 99 mg/dL 96 BUN 7 - 21 mg/dL 14 Creatinine 0.58 - 0.96 mg/dL 0.79 Sodium 136 - 144 mmol/L 136 Potassium 3.7 - 5.1 mmol/L 4.7 Chloride 97 - 105 mmol/L 103 CO2 22 - 30 mmol/L 24 Anion Gap 9 - 18 mmol/L 9 eGFR >=60 mL/min/1.73mA? 81 WBC 3.70 - 11.00 k/uL 4.91 5.88 5.53 RBC 3.90 - 5.20 m/uL 4.70 4.81 4.80 Hemoglobin 11.5 - 15.5 g/dL 12.8 13.6 14.6 Hematocrit 36.0 - 46.0 % 42.3 42.4 44.0 MCV 80.0 - 100.0 fL 90.0 88.1 91.7 MCH 26.0 - 34.0 pg 27.2 28.3 30.4 MCHC 30.5 - 36.0 g/dL 30. (more content not included)... [facility] 11-29-2022 Note HNO ID: [id number] Author: Dequan Hartman MD Service: ? Author Type: Physician Type: Progress Notes Filed: 12/31/2022 11:12 PM Note Text: [facility] 11-29-2022 History of Presen t illness Narrative This note was created using NoteWriter. Subjective Lisset Lawler is a 67 year old female. Patient presents with: F/U 6 months: Labs prior SUBJECTIVE: Lisset Lawler is a 67 year old year old lady here today for 6 month follow up appointment for review of medical conditions. Has been on healthy diet and lost 7 pounds in 3 weeks. Lower calorie diet. Charts what she eats. Rarely over 1200 calories. More fruits and veggies. Noted was not taking Vitamin D or calcium supplements after ran out. Standing order TSH and T4 not done with other labs. Still with ongoing fatigue. Sleeping good. Top of right foot with swelling that has persisted. No pain. No joint pain or swelling. Did drop of HCDPOA and LW paperwork PAST MEDICAL HISTORY Diagnosis Date Arthritis both knees Chronic rhinitis 06/06/2006 Diarrhea Esophagitis, unspecified External hemorrhoids without mention of complication Family history of breast cancer Mother, Sister and 2 Aunts HIGH BLOOD PRESSURE-NO HYPERTENSN 06/06/2006 Hip strain 02/22/2015 Hypertension Internal hemorrhoids without mention of complication Pain in joint, forearm 09/16/2012 Unspecified constipation Unspecified hypothyroidism VAGINITIS ATROPHIC 06/06/2006 Current Outpatient Medications Medication Sig venlafaxine (EFFEXOR) 25 mg tablet Take 1 tablet by mouth daily with dinner. metoprolol succinate ER (TOPROL XL) 50 mg 24 hr tablet Take 1 tablet by mouth once daily. levothyroxine (SYNTHROID) 112 mcg tablet Take 1 tablet by mouth once daily. Take on empty stomach. For Thyroid triamcinolone acetonide (KENALOG) 0.1 % cream Apply sparingly to area for rash/itching. levothyroxine (SYNTHROID) 112 mcg tablet Take 1 tablet by mouth once daily. Take on empty stomach. For Thyroid (Patient not taking: Reported on 11/29/2022) EPINEPHrine (ADRENACLICK) 0.3 mg/0.3 mL auto-injector Inject 0.3 mL intramuscularly as needed. For bee sting allergy (Patient not taking: Reported on 11/29/2022) traMADol (ULTRAM) 50 mg tablet Take 1 tablet by mouth every 6 hours as needed for up to 180 days. Cholecalciferol, Vitamin D3, 50 mcg (2,000 unit) cap Take 1 capsule by mouth once daily. (Patient not taking: Reported on 11/29/2022) FABI-600 WITH VITAMIN D 600 MG-200 UNIT TAB Take by mouth. (Patient not taking: Reported on 11/29/2022) No current facility-administered medications for this visit. Review of Systems Objective BP 138/86 Pulse 62 Temp 36.3 C (97.3 F) Resp 18 Wt 78 kg (172 lb) LMP 03/16/2006 SpO2 97% BMI 27.76 kg/m Last 5 Encounter Wt Readings: Date: Wt: 11/29/2022 78 kg (172 lb) 08/18/2022 79.8 kg (176 lb) 08/10/2022 79.8 kg (176 lb) 07/05/2022 82.6 kg (182 lb 3.2 oz) 06/14/2022 81.6 kg (180 lb) No waist measurement recorded Estimated body mass index is 27.76 kg/m as calculated from the following: Height as of 08/18/22: 167.6 cm (5' 6 ). Weight as of this encounter: 78 kg (172 lb). Last 5 Encounter BP Readings: Date: BP: 11/29/2022 138/86 08/18/2022 126/84 08/11/2022 169/88 08/10/2022 142/86 07/05/2022 160/90 11/29/22 0944 11/29/22 1103 BP: 138/86 122/78 Pulse: 62 Resp: 18 Temp: 36.3 C (97.3 F) SpO2: 97% Weight: 78 kg (172 lb) Physical Exam Constitutional: Appearance: Normal appearance. HENT: Head: Normocephalic. Eyes: Conjunctiva/sclera: Conjunctivae normal. Cardiovascular: Rate and Rhythm: Normal rate and regular rhythm. Heart sounds: Normal heart sounds. Comments: Top of right foot with some mild swelling; no tenderness. No synovitis. Pulmonary: Effort: Pulmonary effort is normal. Breath sounds: Normal breath sounds. Skin: General: Skin is warm and dry. Neurological: General: No focal deficit present. Mental Status: She is alert and oriented to person, place, and time. Psychiatric: Mood and Affect: Mood normal. Behavior: Behavior normal. Thought Content: Thought content normal. Judgment: Judgment normal. Component Latest Ref Rng & Units 08/16/2021 12/01/2021 02/06/2022 06/05/2022 09/20/2022 11/14/2022 Protein, Total 6.3 - 8.0 g/dL 6.9 Albumin 3.9 - 4.9 g/dL 4.1 Calcium 8.5 - 10.2 mg/dL 8.7 Bilirubin, Total 0.2 - 1.3 mg/dL 0.3 Alkaline Phosphatase 34 - 123 U/L 88 AST 13 - 35 U/L 15 ALT 7 - 38 U/L 13 Glucose 74 - 99 mg/dL 96 BUN 7 - 21 mg/dL 14 Creatinine 0.58 - 0.96 mg/dL 0.79 Sodium 136 - 144 mmol/L 136 Potassium 3.7 - 5.1 mmol/L 4.7 Chloride 97 - 105 mmol/L 103 CO2 22 - 30 mmol/L 24 Anion Gap 9 - 18 mmol/L 9 eGFR >=60 mL/min/1.73m 81 WBC 3.70 - 11.00 k/uL 4.91 5.88 5.53 RBC 3.90 - 5.20 m/uL 4.70 4.81 4.80 Hemoglobin 11.5 - 15.5 g/dL 12.8 13.6 14.6 Hematocrit 36.0 - 46.0 % 42.3 42.4 44.0 MCV 80.0 - 100.0 fL 90.0 88.1 91.7 MCH 26.0 - 34.0 pg 27.2 28.3 30.4 MCHC 30.5 - 36.0 g/dL 30.3 (L) 32.1 33.2 RDW-CV 11.5 - 15.0 % 14.2 16.2 (H) 13.2 Platelet Count 150 - 400 k/uL 397 341 305 MPV 9.0 - 12.7 fL 10.8 10.7 10.4 Absolute nRBC <0.01 k/uL <0.01 <0.01 <0.01 Cholesterol, Total <200 mg/dL 221 (H) 232 (H) Triglyceride <150 mg/dL 101 86 HDL Cholesterol >39 mg/dL 69 61 Non HDL Cholesterol <130 mg/dL 152 (H) 171 (H) Fasting Time hrs 12 12 VLDL Cholesterol <30 mg/dL 20 17 TC:HDL Ratio <5.10 3.20 3.80 LDL Cholesterol <100 mg/dL 132 (H) 154 (H) LDL:HDL Ratio <2.54 1.91 2.52 CCP Antibody IgG Qualitative Negative Negative CCP Antibody, IgG <20 Units <15 TSH 0.270 - 4.200 mIU/L 0.115 (L) 0.420 1.990 1.540 Free T4 0.9 - 1.7 ng/dL 1.8 (H) 1.6 1.7 1.4 Free T3 2.3 - 4.1 pg/mL 2.7 Vitamin D 25 Hydroxy 31.0 - 80.0 ng/mL 29.9 (L) 32.1 30.7 (L) WSR 0 - 20 mm/hr 10 Rheumatoid Factor <16 IU/mL 12 DREW by EIA, Qual Negative Negative CRP <0.9 mg/dL <0.3 The 10-year ASCVD risk score (Marvin BOB, et al., 2019) is: 10.6% Values used to calculate the score: Age: 67 years Sex: Female Is Non- : No Diabetic: No Tobacco smoker: No Systolic Blood Pressure: 122 mmHg Is BP treated: Yes HDL Cholesterol: 61 mg/dL Total Cholesterol: 232 mg/dL Assessment and Plan Encounter Diagnosis ICD-10-CM 1. Acquired hypothyroidism E03.9 TSH BLD T4 FREE/FREE THYROX T3 FREE BLD 2. Vitamin D deficiency E55.9 VITAMIN D 25 HYDROXY 3. Primary hypertension I10 BASIC METABOLIC PNL 4. Localized swelling of right foot R22.41 5. Hyperlipidemia, unspecified hyperlipidemia type E78.5 LIPID PANEL BASIC 6. Encounter for long-term current use of medication Z79.899 VITAMIN D 25 HYDROXY BASIC METABOLIC PNL LIPID PANEL BASIC TSH BLD T4 FREE/FREE THYROX T3 FREE BLD 7. Bee sting allergy Z91.030 EPINEPHrine (ADRENACLICK) 0.3 mg/0.3 mL auto-injector 8. Recurrent major depressive disorder, in partial remission (HCC) F33.41 Doing well on Effexor overall; some fatigue still though Above issues addressed with patient. Patient involved in shared decision making for management of medical issues. History and medications reviewed. Epic updated as needed Refills and/or prescriptions taken care of and meds adjusted as indicated after reviewed history, exam and labs. Health Maintenance reviewed. Updated record and/or ordered tests as recorded. Encouraged on efforts at healthy diet and regular exercise and adequate sleep. Needs to keep working on diet and exercise with lifestyle changes for effective weight loss as well as prevention of DM, and control of BP and lipids. Continue present meds.Continue present management.Further evaluation and treatment as indicated. Dequan Hartman MD documented in this encounter [facility] 11-13-2022 Miscellaneous Notes Patient has been identified by name and date of : Patient phones for refill(s): Requested Prescriptions Pending Prescriptions Disp Refills levothyroxine (SYNTHROID) 112 mcg tablet 30 tablet 0 Sig: Take 1 tablet by mouth once daily. Take on empty stomach. For Thyroid Date of last office visit in primary care: 06/05/2022, has appt 11/29/2022 Last 2 Encounter Wt Readings: Date: Wt: 08/18/2022 79.8 kg (176 lb) 08/10/2022 79.8 kg (176 lb) Previous labs/tests for medication: Thyroid: TSH Date Value 09/20/2022 1.540 mIU/L 08/16/2021 0.115 uU/mL Please advise. Thank you. Jessica Mahajan LPN Patient has 7 days of rx left, wants sent locally documented in this encounter [facility] 09-29-2022 Miscellaneous Notes PDMP website checked and validated. All prescriptions have been APPROPRIATELY filled. No suspicious activity was identified. 09/29/2022 by Desmond Flores [email or web address].[email or web address] Patient has been identified by name and date of : Yes, Provider Dr. Hartman Date 09/29/22 Time 10:59 am Patient phones for refill(s): Requested Prescriptions Pending Prescriptions Disp Refills venlafaxine (EFFEXOR) 25 mg tablet 90 tablet 0 Sig: Take 1 tablet by mouth daily with dinner. metoprolol succinate ER (TOPROL XL) 50 mg 24 hr tablet 90 tablet 1 Sig: Take 1 tablet by mouth once daily. levothyroxine (SYNTHROID) 112 mcg tablet 90 tablet 1 Sig: Take 1 tablet by mouth once daily. Take on empty stomach. For Thyroid LORazepam (ATIVAN) 0.5 mg 15 tablet 0 Sig: Take 1 tablet by mouth once daily as needed for up to 30 days. Date of last office visit in primary care: 06/05/22 next apt 11/29/22 Last 2 Encounter Wt Readings: Date: Wt: 08/18/2022 79.8 kg (176 lb) 08/10/2022 79.8 kg (176 lb) Previous labs/tests for medication: Thyroid: TSH Date Value 09/20/2022 1.540 mIU/L 08/16/2021 0.115 uU/mL Blood Pressure: BUN (mg/dL) Date Value 12/01/2021 18 11/11/2020 20 Sodium (mmol/L) Date Value 12/01/2021 141 11/11/2020 140 Last 1 Encounter BP Readings: Date: BP: 08/18/2022 126/84 Thank you. Alondra Euceda LPN documented in this encounter [facility] 08-18-2022 Note HNO ID: [id number] Author: Roseann Aranda PA-C Service: ? Author Type: Physician Wiping Cloth Cutter Type: Progress Notes Filed: 08/22/2022 7:45 PM Note Text: FOLLOW UP VISIT - ENDOSCOPY NAME: Lisset Reeves [facility] NO.: [id number] DATE OF SERVICE: 08/18/2022 : 1955 REFERRING PHYSICIAN: Dequan Hartman MD Lisset is a patient I am following with Dr. Owens for nausea. Dr. Owens performed upper endoscopy on 08/11/22. Findings per operative report showed: - Normal first portion of the duodenum and second portion of the duodenum. - Erythematous mucosa in the antrum. Biopsied. - Z-line irregular. Biopsied. No hiatal hernia Pathology demonstrated: FINAL DIAGNOSIS A. Stomach, antrum, biopsy: - Gastric antral mucosa with no diagnostic abnormality. B. Esophagogastric junction, biopsy: - Reactive squamous and inflamed gastric cardiac-type mucosa, negative for intestinal metaplasia. The patient notes no complaints since the procedure. VITALS: Blood pressure 126/84, pulse 80, temperature 36.3 ?C (97.4 ?F), height 167.6 cm (5' 6 ), weight 79.8 kg (176 lb), last menstrual period 03/16/2006, SpO2 97 %. General: patient is alert, cooperative, pleasant and in no acute distress On examination, the abdomen is benign. Assessment IMPRESSION: mild gastritis with normal biopsies. Mildly irregular z-line PLAN: The operative findings and pathology report were reviewed with the patient, and the patient has had the opportunity to ask questions and have questions answered. If the patient notes any problems or changes in bowel function, the patient should contact me immediately. -Continue short-term treatment with omeprazole (1-2 months) in addition to dietary and lifestyle modifications as discussed -Follow up if symptoms worsen or persist despite above measures Patient verbalized understanding of all above and agreed with the plan Diagnoses: (R11.0) Nausea (primary encounter diagnosis) (K31.89) Stomach irritation I spent a total of 24 minutes on the date of the service which included preparing to see the patient, [id number] patient care, completing clinical documentation, obtaining and/or reviewing separately obtained history, counseling and educating the patient/family/caregiver, and independently interpreting results (not separately reported). Roseann Aranda PA-C [facility] 08-18-2022 Instructions Roseann Aranda PA-C - 08/18/2022 3:10 PM EST -Continue short-term treatment with omeprazole (1-2 months) in addition to dietary and lifestyle modifications as discussed -Follow up if symptoms worsen or persist despite above measures The following instructions are important for you related to your office visit today with the [facility] Surgeons. INSTRUCTIONS FOR PEPTIC ULCER DISEASE/stomach irritation I discussed with you the findings of your upper endoscopy. Your upper endoscopy demonstrated signs of peptic ulcer disease or irritation. This can be seen as a range of issues from actual ulcers in the stomach or duodenum (first part of the small bowel) or irritation ranging from redness to more significant irritation with erosions of the stomach or duodenum. These conditions are usually caused from a combination of too much acid production or too little protective mucus production in the stomach. Factors that increase acid production include smoking and stress. If you smoke, stopping smoking will often cure these issues without needing other medications. Factors that decrease the stomach's production of protective mucus include alcohol consumption, smoking, aspirin and other anti-inflammatory use. Over the counter medications including antiacids and acid reducing medications including H2 blockers (Zantac and the like) and proton pump inhibitors (prilosec, prevacid and the like) neutralize or prevent acid production. Prescription strength proton pump inhibitors (PPIs) may be necessary if your symptoms persist. Carafate may be added to PPI treatment in refractory cases. Avoiding smoking, alcohol and antiinflammatory medications are important in the successful treatment of peptic diseases. New or worsening symptoms such are epigastric pain, burning, difficulty swallowing or food sticking should be relayed to your physician. Feeling full early after eating, or black, tarry, foul smelling stools are also worrisome. If you have any difficulties or concerns, you should contact our office immediately. If you note any additional difficulties, questions, or concerns, you should contact our office immediately @ [phone] and ask to be transferred to the General Surgery department. documented in this encounter [facility] 08-18-2022 History of Presen t illness Narrative FOLLOW UP VISIT - ENDOSCOPY NAME: Lisset Reeves [facility] NO.: [id number] DATE OF SERVICE: 08/18/2022 : 1955 REFERRING PHYSICIAN: Dequan Hartman MD Lisset is a patient I am following with Dr. Owens for nausea. Dr. Owens performed upper endoscopy on 08/11/22. Findings per operative report showed: - Normal first portion of the duodenum and second portion of the duodenum. - Erythematous mucosa in the antrum. Biopsied. - Z-line irregular. Biopsied. No hiatal hernia Pathology demonstrated: FINAL DIAGNOSIS A. Stomach, antrum, biopsy: - Gastric antral mucosa with no diagnostic abnormality. B. Esophagogastric junction, biopsy: - Reactive squamous and inflamed gastric cardiac-type mucosa, negative for intestinal metaplasia. The patient notes no complaints since the procedure. VITALS: Blood pressure 126/84, pulse 80, temperature 36.3 C (97.4 F), height 167.6 cm (5' 6 ), weight 79.8 kg (176 lb), last menstrual period 03/16/2006, SpO2 97 %. General: patient is alert, cooperative, pleasant and in no acute distress On examination, the abdomen is benign. Assessment IMPRESSION: mild gastritis with normal biopsies. Mildly irregular z-line PLAN: The operative findings and pathology report were reviewed with the patient, and the patient has had the opportunity to ask questions and have questions answered. If the patient notes any problems or changes in bowel function, the patient should contact me immediately. -Continue short-term treatment with omeprazole (1-2 months) in addition to dietary and lifestyle modifications as discussed -Follow up if symptoms worsen or persist despite above measures Patient verbalized understanding of all above and agreed with the plan Diagnoses: (R11.0) Nausea (primary encounter diagnosis) (K31.89) Stomach irritation I spent a total of 24 minutes on the date of the service which included preparing to see the patient, [id number] patient care, completing clinical documentation, obtaining and/or reviewing separately obtained history, counseling and educating the patient/family/caregiver, and independently interpreting results (not separately reported). Roseann Aranda PA-C documented in this encounter [facility] 08-11-2022 Nurse Note Patient arrived laying on left side. Patient states she still has a headache and rates it 4/10 otherwise no abdominal pain noted. Patient's abdomen appears to be nondistended and soft to palpation. Patient encouraged to pass gas and belch as needed to prevent pain. documented in this encounter [facility] 08-11-2022 History and physical note UPDATED PROCEDURAL SEDATION HISTORY AND PHYSICAL EXAMINATION SERVICE DATE: 08/11/2022 SERVICE TIME: 12:15 PHYSICAL EXAM MUST BE COMPLETED ON ADMISSION PROCEDURE: EGD, possible biopsies Procedure Indications: nausea The History and Physical (completed in the past 30 days) has been reviewed and the patient has been examined. The contents accurately reflect the patient's condition with the following additions or revisions since the H&P was completed. ASA Class: ASA Class:: Patient with mild systemic disease Examination indicates no changes. AIRWAY: Airway Visualization of Uvula: Yes Mouth opening greater than 2 fingerbreadths: Yes Neck Full Range of Motion: Yes LUNGS: Lungs clear to auscultation CARDIAC: Regular rhythm,Regular rate Provisional Diagnosis/Treatment Plan: EGD, possible biopsies SEDATION GOAL: Moderate This H&P can be found in the Electronic Medical Record. SIGNATURE: Beth Owens MD PATIENT NAME: Lisset Lawler DATE: August 11, 2022 TIME: 12:15 PM Source Note - Beth Owens MD - 08/11/2022 12:00 PM EST HISTORY AND PHYSICAL Lisset Lawler 1955 REFERRING PHYSICIAN: No ref. provider found CHIEF COMPLAINT: Consult (Abdomen pain for last month every day/) HPI: The patient is a 67 year old female referred for endoscopy. Lisset notes nauses. She has noted for about a month with worsening of symptoms over time. She states that she is using TUMS and omeprazole with little relief. She denies acid reflux; she denies heartburn. She notes some headaches, notes some dizziness. She does admit to some stress. She notes no new medications which cause the nausea. She also notes lower abdominal pain for the past week, more tenderness when pressure applied to the area. Does admit to constipation. Last colonoscopy was 2019 for which recommendation was 5 year follow up. Patient is taking a beta cj for HTN, I have encouraged her to not miss a dose. PAST MEDICAL HISTORY Diagnosis Date Arthritis both knees Chronic rhinitis 06/06/2006 Diarrhea Esophagitis, unspecified External hemorrhoids without mention of complication Family history of breast cancer Mother, Sister and 2 Aunts HIGH BLOOD PRESSURE-NO HYPERTENSN 06/06/2006 Hip strain 02/22/2015 Internal hemorrhoids without mention of complication Pain in joint, forearm 09/16/2012 Unspecified constipation Unspecified hypothyroidism VAGINITIS ATROPHIC 06/06/2006 PAST SURGICAL HISTORY Procedure Laterality Date APPENDECTOMY COLONOSCOPY FLX DX W/COLLJ SPEC WHEN PFRMD 06/21/05 Colonoscopy-repeat in COLONOSCOPY FLX DX W/COLLJ SPEC WHEN PFRMD 06/22/14 Colonoscopy COLONOSCOPY FLX DX W/COLLJ SPEC WHEN PFRMD 05/19/2019 repeat colon in 5 years DESTRUCTION HEMORRHOIDS,INT/UR COORDINATOR ESOPHAGOGASTRODUODENOSCOPY TRANSORAL DIAGNOSTIC 09/12/00 EGD TUBAL LIGATION HX Current Outpatient Medications Medication Sig venlafaxine (EFFEXOR) 25 mg tablet Take 1 tablet by mouth daily with dinner. metoprolol succinate ER (TOPROL XL) 50 mg 24 hr tablet Take 1 tablet by mouth once daily. levothyroxine (SYNTHROID) 112 mcg tablet Take 1 tablet by mouth once daily. Take on empty stomach. For Thyroid triamcinolone acetonide (KENALOG) 0.1 % cream Apply sparingly to area for rash/itching. EPINEPHrine (ADRENACLICK) 0.3 mg/0.3 mL auto-injector Inject 0.3 mL intramuscularly as needed. For bee sting allergy traMADol (ULTRAM) 50 mg tablet Take 1 tablet by mouth every 6 hours as needed for up to 180 days. Cholecalciferol, Vitamin D3, 50 mcg (2,000 unit) cap Take 1 capsule by mouth once daily. propranolol ER (INDERAL LA) 60 mg 24 hr capsule Take 1 capsule by mouth once daily. FABI-600 WITH VITAMIN D 600 MG-200 UNIT TAB Take one(1) tablet daily. (Patient not taking: Reported on 08/10/2022) ALLERGIES: Beestings [Other], Nickel, Perfumes, and Tape [Other] PERSONAL HISTORY: Social History Tobacco Use Smoking status: Former Packs/day: 0.50 Years: 20.00 Pack years: 10.00 Types: Cigarettes Quit date: 03/16/2013 Years since quittin.4 Smokeless tobacco: Never Vaping Use Vaping Use: Never used Substance Use Topics Alcohol use: No Drug use: No FAMILY HISTORY Problem Relation Age of Onset Hypertension Mother Breast Cancer Mother 85 Hypertension Father Prostate Cancer Father 70 Skin Cancer Father BCC, SCC, melanoma Breast Cancer Sister 67 Prostate Cancer Brother diagnosed 2017 other (lung cancer) Brother Breast Cancer Paternal Aunt 80 other (Other/gynecological cancer) Paternal Aunt 53 Prostate Cancer Paternal Uncle Prostate Cancer Paternal Uncle Dx: around 73 yo other (Other/lung) Paternal Uncle 70 other (Other/lung) Paternal Uncle 73 other (Other) Maternal Grandmother 88 Throat/oral cancer other (Other) Maternal Grandfather Lung cancer other (juvinille diabetic) Son Breast Cancer Other 55 Maternal first cousin other (Other/vulvar cancer) Other 44 Maternal first cousin Breast Cancer Other 35 Maternal first cousin's daughter Colon Cancer Other Paternal first cousin Prostate Cancer Other 70 Paternal first cousin Breast Cancer Other 80 Paternal first cousin other (lung) Other Paternal first cousin Prostate Cancer Other 82 Paternal first cousin Breast Cancer Other 50 Breast Cancer Other 25 Paternal first cousin's daughter Breast Cancer Other 40 Paternal first cousin's daughter Breast Cancer Other 50 Paternal first cousin's daughter Breast Cancer Other Paternal first cousin's daughter The review of systems data was entered by the nurse and reviewed by me Nursing Notes: Shelby Ortiz LPN 08/10/2022 10:19 AM Signed REVIEW OF SYSTEMS: General: The patient denies fatigue, denies weight loss, notes weight gain, denies feeling hot, and denies feelings of cold. Eyes: The patient denies glaucoma, notes eye injury/surgery, does not wear glasses or contacts. Ear/Nose/Throat: The patient notes allergies, denies hayfever, denies ear infections, and denies bloody noses. Cardiovascular: The patient denies chest pain, denies heart disease, notes high blood pressure,denies cardiac stent, denies prior heart attack, denies irregular heart beat, denies high cholesterol, denies poor circulation, denies heart failure, other cardiac issues, notes claudication, denies cold feet, denies peripheral arterial stent. Respiratory: The patient denies tuberculosis, denies pneumonia, denies frequent cough, denies pulmonary embolism, denies shortness of breath, and denies coughing up blood. Gastrointestinal: The patient denies difficulty swallowing, denies acid reflux, denies ulcers, denies vomiting, denies jaundice/hepatitis, denies gallbladder problems, denies black or tarry stools, notes hemorrhoids, denies bleeding from rectum, denies diverticulitis, denies constipation, denies diarrhea, denies loss of stool control, and denies hernias. Kidney/Bladder: The patient denies kidney stones, denies urine infections, and denies bloody urine. Skin: The patient denies a history of skin cancer, denies bleeding/changing moles, and denies a history of skin rash. Neurologic: The patient denies a history of epilepsy/convulsions, notes headaches, denies head/spinal injuries, and denies stroke/TIA. Psychiatric: The patient notes psychiatric medications, notes depression, and denies voices, denies substance abuse. Endocrine: The patient notes thyroid disorders, denies diabetes, and denies hormonal problems. Hematologic: The patient denies a history of bruising, denies bleeding, and denies anemia, denies blood clots. Infections: The patient denies a history of measles and mumps, denies rheumatic fever, and denies sexually transmitted diseases. Musculoskeletal: The patient denies back pain/injury, denies back problems, denies sciatica, notes knee/foot trouble, notes arthritis, or denies gout. When was patient's last Mammogram screening? 12/04 Last Colonoscopy: 2018 Shelby Ortiz LPN PHYSICAL EXAMINATION: General: The patient is 67 year old female, well nourished, well hydrated in no acute distress. The patient is oriented to time, place, and person. VITALS: Blood pressure 142/86, pulse 89, temperature 36.8 C (98.2 F), height 167.6 cm (5' 6 ), weight 79.8 kg (176 lb), last menstrual period 04/02/2006, SpO2 96 %. Body mass index is 28.41 kg/m . Head: Normal cephalic, atraumatic Eyes: pupils are equally round, sclera are clear/anicteric Neck is supple with no tracheal deviation Respiratory: Normal respiratory excursion and pattern. Abdominal exam: benign Extremities: no clubbing, cyanosis or edema. Neuro: non focal Psych: normal mood IMPRESSION: nausea PLAN: I have discussed the above with the patient. I have offered evaluation with CT scan of the abdomen, patient defers this. I have offered EGD, possible biopsies I have explained the procedure to the patient. I have counseled the patient as to the risks of the procedure, including but not limited to: infection, bleeding, injury to any intrabdominal organs such as liver/spleen, perforation of the GI tract, inability to complete the procedure, complications of anesthesia, etc. - the patient understands. The patient wishes to proceed. I have answered all questions to the patient s satisfaction and the patient has no further questions. HISTORY AND PHYSICAL Lisset Lawler 1955 REFERRING PHYSICIAN: No ref. provider found CHIEF COMPLAINT: Consult (Abdomen pain for last month every day/) HPI: The patient is a 67 year old female referred for endoscopy. Lisset notes nauses. She has noted for about a month with worsening of symptoms over time. She states that she is using TUMS and omeprazole with little relief. She denies acid reflux; she denies heartburn. She notes some headaches, notes some dizziness. She does admit to some stress. She notes no new medications which cause the nausea. She also notes lower abdominal pain for the past week, more tenderness when pressure applied to the area. Does admit to constipation. Last colonoscopy was 2018 for which recommendation was 5 year follow up. Patient is taking a beta cj for HTN, I have encouraged her to not miss a dose. PAST MEDICAL HISTORY Diagnosis Date Arthritis both knees Chronic rhinitis 06/06/2006 Diarrhea Esophagitis, unspecified External hemorrhoids without mention of complication Family history of breast cancer Mother, Sister and 2 Aunts HIGH BLOOD PRESSURE-NO HYPERTENSN 06/06/2006 Hip strain 02/22/2015 Internal hemorrhoids without mention of complication Pain in joint, forearm 09/16/2012 Unspecified constipation Unspecified hypothyroidism VAGINITIS ATROPHIC 06/06/2006 PAST SURGICAL HISTORY Procedure Laterality Date APPENDECTOMY COLONOSCOPY FLX DX W/COLLJ SPEC WHEN PFRMD 06/21/05 Colonoscopy-repeat in COLONOSCOPY FLX DX W/COLLJ SPEC WHEN PFRMD 06/22/14 Colonoscopy COLONOSCOPY FLX DX W/COLLJ SPEC WHEN PFRMD 05/19/2019 repeat colon in 5 years DESTRUCTION HEMORRHOIDS,INT/UR COORDINATOR ESOPHAGOGASTRODUODENOSCOPY TRANSORAL DIAGNOSTIC 09/12/00 EGD TUBAL LIGATION HX Current Outpatient Medications Medication Sig venlafaxine (EFFEXOR) 25 mg tablet Take 1 tablet by mouth daily with dinner. metoprolol succinate ER (TOPROL XL) 50 mg 24 hr tablet Take 1 tablet by mouth once daily. levothyroxine (SYNTHROID) 112 mcg tablet Take 1 tablet by mouth once daily. Take on empty stomach. For Thyroid triamcinolone acetonide (KENALOG) 0.1 % cream Apply sparingly to area for rash/itching. EPINEPHrine (ADRENACLICK) 0.3 mg/0.3 mL auto-injector Inject 0.3 mL intramuscularly as needed. For bee sting allergy traMADol (ULTRAM) 50 mg tablet Take 1 tablet by mouth every 6 hours as needed for up to 180 days. Cholecalciferol, Vitamin D3, 50 mcg (2,000 unit) cap Take 1 capsule by mouth once daily. propranolol ER (INDERAL LA) 60 mg 24 hr capsule Take 1 capsule by mouth once daily. FABI-600 WITH VITAMIN D 600 MG-200 UNIT TAB Take one(1) tablet daily. (Patient not taking: Reported on 08/10/2022) ALLERGIES: Beestings [Other], Nickel, Perfumes, and Tape [Other] PERSONAL HISTORY: Social History Tobacco Use Smoking status: Former Packs/day: 0.50 Years: 20.00 Pack years: 10.00 Types: Cigarettes Quit date: 03/16/2013 Years since quittin.4 Smokeless tobacco: Never Vaping Use Vaping Use: Never used Substance Use Topics Alcohol use: No Drug use: No FAMILY HISTORY Problem Relation Age of Onset Hypertension Mother Breast Cancer Mother 85 Hypertension Father Prostate Cancer Father 70 Skin Cancer Father BCC, SCC, melanoma Breast Cancer Sister 67 Prostate Cancer Brother diagnosed 2017 other (lung cancer) Brother Breast Cancer Paternal Aunt 80 other (Other/gynecological cancer) Paternal Aunt 53 Prostate Cancer Paternal Uncle Prostate Cancer Paternal Uncle Dx: around 73 yo other (Other/lung) Paternal Uncle 70 other (Other/lung) Paternal Uncle 73 other (Other) Maternal Grandmother 88 Throat/oral cancer other (Other) Maternal Grandfather Lung cancer other (juvinille diabetic) Son Breast Cancer Other 55 Maternal first cousin other (Other/vulvar cancer) Other 44 Maternal first cousin Breast Cancer Other 35 Maternal first cousin's daughter Colon Cancer Other Paternal first cousin Prostate Cancer Other 70 Paternal first cousin Breast Cancer Other 80 Paternal first cousin other (lung) Other Paternal first cousin Prostate Cancer Other 82 Paternal first cousin Breast Cancer Other 50 Breast Cancer Other 25 Paternal first cousin's daughter Breast Cancer Other 40 Paternal first cousin's daughter Breast Cancer Other 50 Paternal first cousin's daughter Breast Cancer Other Paternal first cousin's daughter The review of systems data was entered by the nurse and reviewed by vt Nursing Notes: Shelby Ortiz PLAY LEADER 08/10/2022 10:19 AM Signed REVIEW OF SYSTEMS: General: The patient denies fatigue, denies weight loss, notes weight gain, denies feeling hot, and denies feelings of cold. Eyes: The patient denies glaucoma, notes eye injury/surgery, does not wear glasses or contacts. Ear/Nose/Throat: The patient notes allergies, denies hayfever, denies ear infections, and denies bloody noses. Cardiovascular: The patient denies chest pain, denies heart disease, notes high blood pressure,denies cardiac stent, denies prior heart attack, denies irregular heart beat, denies high cholesterol, denies poor circulation, denies heart failure, other cardiac issues, notes claudication, denies cold feet, denies peripheral arterial stent. Respiratory: The patient denies tuberculosis, denies pneumonia, denies frequent cough, denies pulmonary embolism, denies shortness of breath, and denies coughing up blood. Gastrointestinal: The patient denies difficulty swallowing, denies acid reflux, denies ulcers, denies vomiting, denies jaundice/hepatitis, denies gallbladder problems, denies black or tarry stools, notes hemorrhoids, denies bleeding from rectum, denies diverticulitis, denies constipation, denies diarrhea, denies loss of stool control, and denies hernias. Kidney/Bladder: The patient denies kidney stones, denies urine infections, and denies bloody urine. Skin: The patient denies a history of skin cancer, denies bleeding/changing moles, and denies a history of skin rash. Neurologic: The patient denies a history of epilepsy/convulsions, notes headaches, denies head/spinal injuries, and denies stroke/TIA. Psychiatric: The patient notes psychiatric medications, notes depression, and denies voices, denies substance abuse. Endocrine: The patient notes thyroid disorders, denies diabetes, and denies hormonal problems. Hematologic: The patient denies a history of bruising, denies bleeding, and denies anemia, denies blood clots. Infections: The patient denies a history of measles and mumps, denies rheumatic fever, and denies sexually transmitted diseases. Musculoskeletal: The patient denies back pain/injury, denies back problems, denies sciatica, notes knee/foot trouble, notes arthritis, or denies gout. When was patient's last Mammogram screening? 12/04 Last Colonoscopy: 2018 Shelby Ortiz LPN PHYSICAL EXAMINATION: General: The patient is 67 year old female, well nourished, well hydrated in no acute distress. The patient is oriented to time, place, and person. VITALS: Blood pressure 142/86, pulse 89, temperature 36.8 C (98.2 F), height 167.6 cm (5' 6 ), weight 79.8 kg (176 lb), last menstrual period 04/02/2006, SpO2 96 %. Body mass index is 28.41 kg/m . Head: Normal cephalic, atraumatic Eyes: pupils are equally round, sclera are clear/anicteric Neck is supple with no tracheal deviation Respiratory: Normal respiratory excursion and pattern. Abdominal exam: benign Extremities: no clubbing, cyanosis or edema. Neuro: non focal Psych: normal mood IMPRESSION: nausea PLAN: I have discussed the above with the patient. I have offered evaluation with CT scan of the abdomen, patient defers this. I have offered EGD, possible biopsies I have explained the procedure to the patient. I have counseled the patient as to the risks of the procedure, including but not limited to: infection, bleeding, injury to any intrabdominal organs such as liver/spleen, perforation of the GI tract, inability to complete the procedure, complications of anesthesia, etc. - the patient understands. The patient wishes to proceed. I have answered all questions to the patient s satisfaction and the patient has no further questions. documented in this encounter [facility] 08-10-2022 Note HNO ID: [id number] Author: Beth Owens MD Service: ? Author Type: Physician Type: Progress Notes Filed: 08/11/2022 11:39 AM Note Text: HISTORY AND PHYSICAL Lisset Lawler 1955 REFERRING PHYSICIAN: No ref. provider found CHIEF COMPLAINT: Consult (Abdomen pain for last month every day/) HPI: The patient is a 67 year old female referred for endoscopy. Lisset notes nauses. She has noted for about a month with worsening of symptoms over time. She states that she is using TUMS and omeprazole with little relief. She denies acid reflux; she denies heartburn. She notes some headaches, notes some dizziness. She does admit to some stress. She notes no new medications which cause the nausea. She also notes lower abdominal pain for the past week, more tenderness when pressure applied to the area. Does admit to constipation. Last colonoscopy was 2018 for which recommendation was 5 year follow up. Patient is taking a beta cj for HTN, I have encouraged her to not miss a dose. PAST MEDICAL HISTORY Diagnosis Date Arthritis both knees Chronic rhinitis 06/06/2006 Diarrhea Esophagitis, unspecified External hemorrhoids without mention of complication Family history of breast cancer Mother, Sister and 2 Aunts HIGH BLOOD PRESSURE-NO HYPERTENSN 06/06/2006 Hip strain 02/22/2015 Internal hemorrhoids without mention of complication Pain in joint, forearm 09/16/2012 Unspecified constipation Unspecified hypothyroidism VAGINITIS ATROPHIC 06/06/2006 PAST SURGICAL HISTORY Procedure Laterality Date APPENDECTOMY COLONOSCOPY FLX DX W/COLLJ SPEC WHEN PFRMD 06/21/05 Colonoscopy-repeat in COLONOSCOPY FLX DX W/COLLJ SPEC WHEN PFRMD 06/22/14 Colonoscopy COLONOSCOPY FLX DX W/COLLJ SPEC WHEN PFRMD 05/19/2019 repeat colon in 5 years DESTRUCTION HEMORRHOIDS,INT/UR COORDINATOR ESOPHAGOGASTRODUODENOSCOPY TRANSORAL DIAGNOSTIC 09/12/00 EGD TUBAL LIGATION HX Current Outpatient Medications Medication Sig venlafaxine (EFFEXOR) 25 mg tablet Take 1 tablet by mouth daily with dinner. metoprolol succinate ER (TOPROL XL) 50 mg 24 hr tablet Take 1 tablet by mouth once daily. levothyroxine (SYNTHROID) 112 mcg tablet Take 1 tablet by mouth once daily. Take on empty stomach. For Thyroid triamcinolone acetonide (KENALOG) 0.1 % cream Apply sparingly to area for rash/itching. EPINEPHrine (ADRENACLICK) 0.3 mg/0.3 mL auto-injector Inject 0.3 mL intramuscularly as needed. For bee sting allergy traMADol (ULTRAM) 50 mg tablet Take 1 tablet by mouth every 6 hours as needed for up to 180 days. Cholecalciferol, Vitamin D3, 50 mcg (2,000 unit) cap Take 1 capsule by mouth once daily. propranolol ER (INDERAL LA) 60 mg 24 hr capsule Take 1 capsule by mouth once daily. FABI-600 WITH VITAMIN D 600 MG-200 UNIT TAB Take one(1) tablet daily. (Patient not taking: Reported on 08/10/2022) ALLERGIES: Beestings [Other], Nickel, Perfumes, and Tape [Other] PERSONAL HISTORY: Social History Tobacco Use Smoking status: Former Packs/day: 0.50 Years: 20.00 Pack years: 10.00 Types: Cigarettes Quit date: 03/16/2013 Years since quittin.4 Smokeless tobacco: Never Vaping Use Vaping Use: Never used Substance Use Topics Alcohol use: No Drug use: No FAMILY HISTORY Problem Relation Age of Onset Hypertension Mother Breast Cancer Mother 85 Hypertension Father Prostate Cancer Father 70 Skin Cancer Father BCC, SCC, melanoma Breast Cancer Sister 67 Prostate Cancer Brother diagnosed 2017 other (lung cancer) Brother Breast Cancer Paternal Aunt 80 other (Other/gynecological cancer) Paternal Aunt 53 Prostate Cancer Paternal Uncle Prostate Cancer Paternal Uncle Dx: around 73 yo other (Other/lung) Paternal Uncle 70 other (Other/lung) Paternal Uncle 73 other (Other) Maternal Grandmother 88 Throat/oral cancer other (Other) Maternal Grandfather Lung cancer other (juvinille diabetic) Son Breast Cancer Other 55 Maternal first cousin other (Other/vulvar cancer) Other 44 Maternal first cousin Breast Cancer Other 35 Maternal first cousin's daughter Colon Cancer Other Paternal first cousin Prostate Cancer Other 70 Paternal first cousin Breast Cancer Other 80 Paternal first cousin other (lung) Other Paternal first cousin Prostate Cancer Other 82 Paternal first cousin Breast Cancer Other 50 Breast Cancer Other 25 Paternal first cousin's daughter Breast Cancer Other 40 Paternal first cousin's daughter Breast Cancer Other 50 Paternal first cousin's daughter Breast Cancer Other Paternal first cousin's daughter The review of systems data was entered by the nurse and reviewed by vt Nursing Notes: Shelby Ortiz LPN 08/10/2022 10:19 AM Signed REVIEW OF SYSTEMS: General: The patient denies fatigue, denies weight loss, notes weight gain, denies feeling hot, and denies feelings of cold. Eyes: The patient denies glaucoma, notes eye injury/surger (more content not included)... [facility] 08-10-2022 History of Presen t illness Narrative HISTORY AND PHYSICAL Lisset Lawler 1955 REFERRING PHYSICIAN: No ref. provider found CHIEF COMPLAINT: Consult (Abdomen pain for last month every day/) HPI: The patient is a 67 year old female referred for endoscopy. Lisset notes nauses. She has noted for about a month with worsening of symptoms over time. She states that she is using TUMS and omeprazole with little relief. She denies acid reflux; she denies heartburn. She notes some headaches, notes some dizziness. She does admit to some stress. She notes no new medications which cause the nausea. She also notes lower abdominal pain for the past week, more tenderness when pressure applied to the area. Does admit to constipation. Last colonoscopy was 2018 for which recommendation was 5 year follow up. Patient is taking a beta cj for HTN, I have encouraged her to not miss a dose. PAST MEDICAL HISTORY Diagnosis Date Arthritis both knees Chronic rhinitis 06/06/2006 Diarrhea Esophagitis, unspecified External hemorrhoids without mention of complication Family history of breast cancer Mother, Sister and 2 Aunts HIGH BLOOD PRESSURE-NO HYPERTENSN 06/06/2006 Hip strain 02/22/2015 Internal hemorrhoids without mention of complication Pain in joint, forearm 09/16/2012 Unspecified constipation Unspecified hypothyroidism VAGINITIS ATROPHIC 06/06/2006 PAST SURGICAL HISTORY Procedure Laterality Date APPENDECTOMY COLONOSCOPY FLX DX W/COLLJ SPEC WHEN PFRMD 06/21/05 Colonoscopy-repeat in COLONOSCOPY FLX DX W/COLLJ SPEC WHEN PFRMD 06/22/14 Colonoscopy COLONOSCOPY FLX DX W/COLLJ SPEC WHEN PFRMD 05/19/2019 repeat colon in 5 years DESTRUCTION HEMORRHOIDS,INT/UR COORDINATOR ESOPHAGOGASTRODUODENOSCOPY TRANSORAL DIAGNOSTIC 09/12/00 EGD TUBAL LIGATION HX Current Outpatient Medications Medication Sig venlafaxine (EFFEXOR) 25 mg tablet Take 1 tablet by mouth daily with dinner. metoprolol succinate ER (TOPROL XL) 50 mg 24 hr tablet Take 1 tablet by mouth once daily. levothyroxine (SYNTHROID) 112 mcg tablet Take 1 tablet by mouth once daily. Take on empty stomach. For Thyroid triamcinolone acetonide (KENALOG) 0.1 % cream Apply sparingly to area for rash/itching. EPINEPHrine (ADRENACLICK) 0.3 mg/0.3 mL auto-injector Inject 0.3 mL intramuscularly as needed. For bee sting allergy traMADol (ULTRAM) 50 mg tablet Take 1 tablet by mouth every 6 hours as needed for up to 180 days. Cholecalciferol, Vitamin D3, 50 mcg (2,000 unit) cap Take 1 capsule by mouth once daily. propranolol ER (INDERAL LA) 60 mg 24 hr capsule Take 1 capsule by mouth once daily. FABI-600 WITH VITAMIN D 600 MG-200 UNIT TAB Take one(1) tablet daily. (Patient not taking: Reported on 08/10/2022) ALLERGIES: Beestings [Other], Nickel, Perfumes, and Tape [Other] PERSONAL HISTORY: Social History Tobacco Use Smoking status: Former Packs/day: 0.50 Years: 20.00 Pack years: 10.00 Types: Cigarettes Quit date: 03/16/2013 Years since quittin.4 Smokeless tobacco: Never Vaping Use Vaping Use: Never used Substance Use Topics Alcohol use: No Drug use: No FAMILY HISTORY Problem Relation Age of Onset Hypertension Mother Breast Cancer Mother 85 Hypertension Father Prostate Cancer Father 70 Skin Cancer Father BCC, SCC, melanoma Breast Cancer Sister 67 Prostate Cancer Brother diagnosed 2017 other (lung cancer) Brother Breast Cancer Paternal Aunt 80 other (Other/gynecological cancer) Paternal Aunt 53 Prostate Cancer Paternal Uncle Prostate Cancer Paternal Uncle Dx: around 73 yo other (Other/lung) Paternal Uncle 70 other (Other/lung) Paternal Uncle 73 other (Other) Maternal Grandmother 88 Throat/oral cancer other (Other) Maternal Grandfather Lung cancer other (juvinille diabetic) Son Breast Cancer Other 55 Maternal first cousin other (Other/vulvar cancer) Other 44 Maternal first cousin Breast Cancer Other 35 Maternal first cousin's daughter Colon Cancer Other Paternal first cousin Prostate Cancer Other 70 Paternal first cousin Breast Cancer Other 80 Paternal first cousin other (lung) Other Paternal first cousin Prostate Cancer Other 82 Paternal first cousin Breast Cancer Other 50 Breast Cancer Other 25 Paternal first cousin's daughter Breast Cancer Other 40 Paternal first cousin's daughter Breast Cancer Other 50 Paternal first cousin's daughter Breast Cancer Other Paternal first cousin's daughter The review of systems data was entered by the nurse and reviewed by me Nursing Notes: Shelby Ortiz LPN 08/10/2022 10:19 AM Signed REVIEW OF SYSTEMS: General: The patient denies fatigue, denies weight loss, notes weight gain, denies feeling hot, and denies feelings of cold. Eyes: The patient denies glaucoma, notes eye injury/surgery, does not wear glasses or contacts. Ear/Nose/Throat: The patient notes allergies, denies hayfever, denies ear infections, and denies bloody noses. Cardiovascular: The patient denies chest pain, denies heart disease, notes high blood pressure,denies cardiac stent, denies prior heart attack, denies irregular heart beat, denies high cholesterol, denies poor circulation, denies heart failure, other cardiac issues, notes claudication, denies cold feet, denies peripheral arterial stent. Respiratory: The patient denies tuberculosis, denies pneumonia, denies frequent cough, denies pulmonary embolism, denies shortness of breath, and denies coughing up blood. Gastrointestinal: The patient denies difficulty swallowing, denies acid reflux, denies ulcers, denies vomiting, denies jaundice/hepatitis, denies gallbladder problems, denies black or tarry stools, notes hemorrhoids, denies bleeding from rectum, denies diverticulitis, denies constipation, denies diarrhea, denies loss of stool control, and denies hernias. Kidney/Bladder: The patient denies kidney stones, denies urine infections, and denies bloody urine. Skin: The patient denies a history of skin cancer, denies bleeding/changing moles, and denies a history of skin rash. Neurologic: The patient denies a history of epilepsy/convulsions, notes headaches, denies head/spinal injuries, and denies stroke/TIA. Psychiatric: The patient notes psychiatric medications, notes depression, and denies voices, denies substance abuse. Endocrine: The patient notes thyroid disorders, denies diabetes, and denies hormonal problems. Hematologic: The patient denies a history of bruising, denies bleeding, and denies anemia, denies blood clots. Infections: The patient denies a history of measles and mumps, denies rheumatic fever, and denies sexually transmitted diseases. Musculoskeletal: The patient denies back pain/injury, denies back problems, denies sciatica, notes knee/foot trouble, notes arthritis, or denies gout. When was patient's last Mammogram screening? 12/04 Last Colonoscopy: 2018 Shelby Ortiz LPN PHYSICAL EXAMINATION: General: The patient is 67 year old female, well nourished, well hydrated in no acute distress. The patient is oriented to time, place, and person. VITALS: Blood pressure 142/86, pulse 89, temperature 36.8 C (98.2 F), height 167.6 cm (5' 6 ), weight 79.8 kg (176 lb), last menstrual period 04/02/2006, SpO2 96 %. Body mass index is 28.41 kg/m . Head: Normal cephalic, atraumatic Eyes: pupils are equally round, sclera are clear/anicteric Neck is supple with no tracheal deviation Respiratory: Normal respiratory excursion and pattern. Abdominal exam: benign Extremities: no clubbing, cyanosis or edema. Neuro: non focal Psych: normal mood Assessment IMPRESSION: nausea PLAN: I have discussed the above with the patient. I have offered evaluation with CT scan of the abdomen, patient defers this. I have offered EGD, possible biopsies I have explained the procedure to the patient. I have counseled the patient as to the risks of the procedure, including but not limited to: infection, bleeding, injury to any intrabdominal organs such as liver/spleen, perforation of the GI tract, inability to complete the procedure, complications of anesthesia, etc. - the patient understands. The patient was offered a surgery/procedure at a [facility] facility. The provider and patient have discussed in detail the risk of exposure to and/or potential harm posed by the COVID-19 virus with having a surgery/procedure at this time versus the risk of delaying the surgery/procedure. It is not possible to know either the risk of delaying the surgery or procedure or chance of getting an infection with perfect accuracy, but a joint decision was made between the patient and the provider to proceed at this time with the scheduled surgery/procedure. The patient wishes to proceed. I have answered all questions to the patient s satisfaction and the patient has no further questions. Diagnoses: (R11.0) Nausea (primary encounter diagnosis) I have confirmed and edited as necessary, the PFSH and ROS obtained by others. Return to Clinic: The patient will be scheduled for EGD in [facility]. Medical Decision Making: Problems: Low: Stable chronic illness Risk: Low: Low risk from testing/treatment Medical Decision Making Level: 3 - Low Beth Owens MD documented in this encounter [facility] 08-10-2022 Nurse Note REVIEW OF SYSTEMS: General: The patient denies fatigue, denies weight loss, notes weight gain, denies feeling hot, and denies feelings of cold. Eyes: The patient denies glaucoma, notes eye injury/surgery, does not wear glasses or contacts. Ear/Nose/Throat: The patient notes allergies, denies hayfever, denies ear infections, and denies bloody noses. Cardiovascular: The patient denies chest pain, denies heart disease, notes high blood pressure,denies cardiac stent, denies prior heart attack, denies irregular heart beat, denies high cholesterol, denies poor circulation, denies heart failure, other cardiac issues, notes claudication, denies cold feet, denies peripheral arterial stent. Respiratory: The patient denies tuberculosis, denies pneumonia, denies frequent cough, denies pulmonary embolism, denies shortness of breath, and denies coughing up blood. Gastrointestinal: The patient denies difficulty swallowing, denies acid reflux, denies ulcers, denies vomiting, denies jaundice/hepatitis, denies gallbladder problems, denies black or tarry stools, notes hemorrhoids, denies bleeding from rectum, denies diverticulitis, denies constipation, denies diarrhea, denies loss of stool control, and denies hernias. Kidney/Bladder: The patient denies kidney stones, denies urine infections, and denies bloody urine. Skin: The patient denies a history of skin cancer, denies bleeding/changing moles, and denies a history of skin rash. Neurologic: The patient denies a history of epilepsy/convulsions, notes headaches, denies head/spinal injuries, and denies stroke/TIA. Psychiatric: The patient notes psychiatric medications, notes depression, and denies voices, denies substance abuse. Endocrine: The patient notes thyroid disorders, denies diabetes, and denies hormonal problems. Hematologic: The patient denies a history of bruising, denies bleeding, and denies anemia, denies blood clots. Infections: The patient denies a history of measles and mumps, denies rheumatic fever, and denies sexually transmitted diseases. Musculoskeletal: The patient denies back pain/injury, denies back problems, denies sciatica, notes knee/foot trouble, notes arthritis, or denies gout. When was patient's last Mammogram screening? 12/04 Last Colonoscopy: 2019 Shelby Ortiz LPN documented in this encounter [facility] 08-09-2022 Miscellaneous Notes Updated noted, agree with her seeing general surgery for persistent nausea. documented in this encounter [facility] 07-11-2022 Miscellaneous Notes BP readings sent to scanning. Dalila Aquino LPN BPs look like they are overall trending down with more BPs in the 130 to 160 range and 2 BPs higher (195 and 204) this 06/26 to to 07/04 time versus 06/06 to 06/14 when most were 177 to 193 with just 3 BP ins 131 to 163 range. Can take an extra half pill in the evening to see if that helps get BPs even better controlled. Above sent via My Chart message Patient dropped off list of at home BP readings. [facility] 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 Lisset Lawler is a 66 year old female who presents for concerns regarding vaginal odors and lower back pain. Patient reports this has been going on for some time. [place] and wonders if that is part of the problem. She denies any changes with soaps or detergents. She states that she only uses plain white Dove. She denies any significant changes with discharge any itching or burning. She states she is only sexually active about once per month and does not notice a significant change around that time. She denies any vaginal bleeding. She denies any dysuria or changes with her urinary habits. She denies any changes with her bowel habits like constipation or diarrhea. She denies any changes with her weight. Patient offers no other concerns today. 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 History Comments: Sexual Activity: Yes; Male Contraception: No contraception data on record PAST MEDICAL HISTORY Diagnosis Date Arthritis both knees Chronic rhinitis 06/06/2006 Diarrhea Esophagitis, unspecified External hemorrhoids without mention of complication Family history of breast cancer Mother, Sister and 2 Aunts HIGH BLOOD PRESSURE-NO HYPERTENSN 06/06/2006 Hip strain 02/22/2015 Internal hemorrhoids without mention of complication Pain in joint, forearm 09/16/2012 Unspecified constipation Unspecified hypothyroidism VAGINITIS ATROPHIC 06/06/2006 PAST SURGICAL HISTORY Procedure Laterality Date APPENDECTOMY COLONOSCOPY FLX DX W/COLLJ SPEC WHEN PFRMD 06/21/05 Colonoscopy-repeat in COLONOSCOPY FLX DX W/COLLJ SPEC WHEN PFRMD 06/22/14 Colonoscopy COLONOSCOPY FLX DX W/COLLJ SPEC WHEN PFRMD 05/19/2019 repeat colon in 5 years DESTRUCTION HEMORRHOIDS,INT/UR COORDINATOR ESOPHAGOGASTRODUODENOSCOPY TRANSORAL DIAGNOSTIC 09/12/00 EGD TUBAL LIGATION HX FAMILY HISTORY Problem Relation Age of Onset Hypertension Mother Breast Cancer Mother 85 Hypertension Father Prostate Cancer Father 70 Skin Cancer Father BCC, SCC, melanoma Breast Cancer Sister 67 Prostate Cancer Brother diagnosed 2016 other (lung cancer) Brother Breast Cancer Paternal Aunt 80 other (Other/gynecological cancer) Paternal Aunt 53 Prostate Cancer Paternal Uncle Prostate Cancer Paternal Uncle Dx: around 73 yo other (Other/lung) Paternal Uncle 70 other (Other/lung) Paternal Uncle 73 other (Other) Maternal Grandmother 88 Throat/oral cancer other (Other) Maternal Grandfather Lung cancer other (juvinille diabetic) Son Breast Cancer Other 55 Maternal first cousin other (Other/vulvar cancer) Other 44 Maternal first cousin Breast Cancer Other 35 Maternal first cousin's daughter Colon Cancer Other Paternal first cousin Prostate Cancer Other 70 Paternal first cousin Breast Cancer Other 80 Paternal first cousin other (lung) Other Paternal first cousin Prostate Cancer Other 82 Paternal first cousin Breast Cancer Other 50 Breast Cancer Other 25 Paternal first cousin's daughter Breast Cancer Other 40 Paternal first cousin's daughter Breast Cancer Other 50 Paternal first cousin's daughter Breast Cancer Other Paternal first cousin's daughter Social History Tobacco Use Smoking status: Former Packs/day: 0.50 Years: 20.00 Pack years: 10.00 Types: Cigarettes Quit date: 03/16/2013 Years since quittin.3 Smokeless tobacco: Never Vaping Use Vaping Use: Never used Substance Use Topics Alcohol use: No Drug use: No Current Outpatient Medications Medication Sig venlafaxine (EFFEXOR) 25 mg tablet Take 1 tablet by mouth daily with dinner. metoprolol succinate ER (TOPROL XL) 50 mg 24 hr tablet Take 1 tablet by mouth once daily. LORazepam (ATIVAN) 0.5 mg Take 1 tablet by mouth once daily as needed for up to 30 days. levothyroxine (SYNTHROID) 112 mcg tablet Take 1 tablet by mouth once daily. Take on empty stomach. For Thyroid triamcinolone acetonide (KENALOG) 0.1 % cream Apply sparingly to area for rash/itching. EPINEPHrine (ADRENACLICK) 0.3 mg/0.3 mL auto-injector Inject 0.3 mL intramuscularly as needed. For bee sting allergy Cholecalciferol, Vitamin D3, 50 mcg (2,000 unit) cap Take 1 capsule by mouth once daily. FABI-600 WITH VITAMIN D 600 MG-200 UNIT TAB Take one(1) tablet daily. propranolol ER (INDERAL LA) 60 mg 24 hr capsule Take 1 capsule by mouth once daily. traMADol (ULTRAM) 50 mg tablet Take 1 tablet by mouth every 6 hours as needed for up to 180 days. No current facility-administered medications for this visit. Allergies As of Date: 07/05/2022 Allergen Noted Reaction BEESTINGS [OTHER] 04/19/2005 NICKEL 11/29/2007 PERFUMES 04/19/2005 TAPE [OTHER] 04/19/2005 Fully Assessed 07/05/2022 REVIEW OF SYSTEMS Abdomen: No bloating, early satiety, indigestion, or increased flatulence. No abdominal pain, nausea, vomiting, diarrhea, or constipation. Bladder: No dysuria, gross hematuria, urinary frequency, urinary urgency, or incontinence. Breast: No breast lumps, nipple d/c, overlying skin changes, redness or skin retraction. Expanded ROS: denies fever Allergies and current medication updated:Yes EXAM: BP 160/90 Wt 182 lb 3.2 oz (82.6kg) LMP 04/02/2006 GENERAL: pleasant, female in no apparent distress HEENT: Normocephalic, atraumatic, mucus membranes moist, and no lesions NECK: Supple, full range of motion, no adenopathy, and thyroid normal DERMATOLOGY: Normal, without lesions, non-icteric, and non-hirsute BREAST: soft, non-tender, symmetric, no dominant mass, normal nipple-areolar complex, no lymphadenopathy, and no nipple discharge ABDOMEN: soft, non-tender, and no masses PELVIC: external genitalia normal, normal Bartholin's glands, urethra, [place]'s glands, no vulvar lesions, no cervical lesions, good vaginal support, physiologic discharge present, normal appearing perineal body and perianal region BIMANUAL: uterus normal size, shape and consistency, no adnexal masses, and non-tender NEURO: alert and oriented x3,exam grossly non-focal EXTREMITIES: normal ASSESSMENT AND PLAN: Encounter Diagnosis ICD-10-CM 1. Vaginal odor N89.8 BACTERIAL VAGINOSIS AMPLIFICATION STAN / TRICHOMONAS AMPLIFICATION 2. Urine dip is overall negative. She had small leukocytes. Discussed using [id number] either Azo urinary and vaginal complete versus Azo dual relief. We discussed vulvar and vaginal hygiene. 3. Colonoscopy up to date 4. Mammogram up to date Medical Decision Making: Problems: Low: Acute, uncomplicated illness or injury Data: Unique test(s) ordered: 3+ Medical Decision Making Level: 3 - Low Avani Hurst MD documented in this encounter [facility] 06-22-2022 Note ORIGINAL EXAMINATION: MRI OF THE LEFT KNEE WITHOUT GQKCICFH87/8/2022 12:06 pm TECHNIQUE: Multiplanar multisequence MRI of the left knee was performed without the administration of intravenous contrast. COMPARISON: None HISTORY: ORDERING SYSTEM PROVIDED HISTORY: Reason for Exam: PAIN IN LEFT KNEE FINDINGS: MUSCLES, TENDONS, AND LIGAMENTS: The anterior cruciate ligament is intact. The posterior cruciate ligament is intact. The medial collateral ligament is intact. The lateral collateral ligament complex is intact. The popliteus and biceps femoris tendons, iliotibial band, and extensor mechanism are intact. Very mild intermediate signal noted in the patellar tendon, indicative of patellar tendinosis. MENISCI: The medial meniscus is intact. The lateral meniscus is intact. OSSEOUS STRUCTURES AND JOINTS: There is bone marrow edema of the anterior aspect the proximal tibia at midline extending to the tibial tubercle. No evidence of macrotrabecular fracture. No dislocation. There is intermediate grade cartilage thinning with irregularity of the medial femoral compartment. The lateral femoral compartment cartilage is unremarkable. There is intermediate grade thinning of the cartilage of the patella. High-grade thinning and fissuring of the inferior aspect of the lateral trochlea is noted. Slight lateral subluxation is noted of the patella. No significant joint effusion is evident. SOFT TISSUES: No significant volume of fluid is evident in a popliteal cyst. IMPRESSION: 1. Osseous the anterior tibia extending to the tibial tuberosity without evidence of macrotrabecular fracture. 2. Tricompartmental degenerative changes most pronounced in the patellofemoral compartment. I have personally reviewed the images of this examination, agree with resident's findings and interpretation. Interpreted by: Hipolito Carlson DO Preliminary Report By: João Mendez Electronically signed By Hipolito Carlson DO Dictated Date: 06/22/2022 2:20:32 PM Prelim Date: 06/22/2022 7:34:52 PM Sign Date: 06/22/2022 7:34:52 PM Ordering Provider: [facility] 06-22-2022 Note ORIGINAL EXAMINATION: MRI OF THE LEFT KNEE WITHOUT NKFULAXC00/8/2022 12:06 pm TECHNIQUE: Multiplanar multisequence MRI of the left knee was performed without the administration of intravenous contrast. COMPARISON: None HISTORY: ORDERING SYSTEM PROVIDED HISTORY: Reason for Exam: PAIN IN LEFT KNEE FINDINGS: MUSCLES, TENDONS, AND LIGAMENTS: The anterior cruciate ligament is intact. The posterior cruciate ligament is intact. The medial collateral ligament is intact. The lateral collateral ligament complex is intact. The popliteus and biceps femoris tendons, iliotibial band, and extensor mechanism are intact. Very mild intermediate signal noted in the patellar tendon, indicative of patellar tendinosis. MENISCI: The medial meniscus is intact. The lateral meniscus is intact. OSSEOUS STRUCTURES AND JOINTS: There is bone marrow edema of the anterior aspect the proximal tibia at midline extending to the tibial tubercle. No evidence of macrotrabecular fracture. No dislocation. There is intermediate grade cartilage thinning with irregularity of the medial femoral compartment. The lateral femoral compartment cartilage is unremarkable. There is intermediate grade thinning of the cartilage of the patella. High-grade thinning and fissuring of the inferior aspect of the lateral trochlea is noted. Slight lateral subluxation is noted of the patella. No significant joint effusion is evident. SOFT TISSUES: No significant volume of fluid is evident in a popliteal cyst. IMPRESSION: 1. Osseous the anterior tibia extending to the tibial tuberosity without evidence of macrotrabecular fracture. 2. Tricompartmental degenerative changes most pronounced in the patellofemoral compartment. I have personally reviewed the images of this examination, agree with resident's findings and interpretation. Interpreted by: Hipolito Carlson DO Preliminary Report By: João Mendez Electronically signed By Hipolito Carlson DO Dictated Date: 06/22/2022 2:20:32 PM Prelim Date: 06/22/2022 7:34:52 PM Sign Date: 06/22/2022 7:34:52 PM Ordering Provider: MASOUD ISIDRO [facility] 06-05-2022 History of Presen t illness Narrative This note was created using DIVINE BOO[employer]. Subjective Lisset Lawler is a 66 year old female. Patient presents with: F/U 6 months SUBJECTIVE: Lisset Lawler is a 66 year old year old lady here today for 6 month follow up appointment for review of medical conditions. Brought in cuffs and were different but 14 points (black one higher than white). At home 16 points difference. From here 10 points lower on our cuff. No symptoms of higher BP. Left knee acting --giving out from pain. Fell on both knees after had cataract surgery done (2 weeks ago). Was already acting up prior to this. Will see ortho for eval in June. Aware has DJD. Already stopped meloxicam and BP still up. Glucosamine and turmeric no help. Had prior COVID. Gave blood and had high titers.Declines booster. PAST MEDICAL HISTORY Diagnosis Date Arthritis both knees Chronic rhinitis 06/06/2006 Diarrhea Esophagitis, unspecified External hemorrhoids without mention of complication Family history of breast cancer Mother, Sister and 2 Aunts HIGH BLOOD PRESSURE-NO HYPERTENSN 06/06/2006 Hip strain 02/22/2015 Internal hemorrhoids without mention of complication Pain in joint, forearm 09/16/2012 Unspecified constipation Unspecified hypothyroidism VAGINITIS ATROPHIC 06/06/2006 Current Outpatient Medications Medication Sig venlafaxine (EFFEXOR) 25 mg tablet Take 1 tablet by mouth daily with dinner. levothyroxine (SYNTHROID) 112 mcg tablet Take 1 tablet by mouth once daily. Take on empty stomach. For Thyroid propranolol ER (INDERAL LA) 60 mg 24 hr capsule Take 1 capsule by mouth once daily. triamcinolone acetonide (KENALOG) 0.1 % cream Apply sparingly to area for rash/itching. EPINEPHrine (ADRENACLICK) 0.3 mg/0.3 mL auto-injector Inject 0.3 mL intramuscularly as needed. For bee sting allergy meloxicam (MOBIC) 15 mg tablet Take 1 tablet by mouth once daily. As needed. Take with food. (Patient not taking: Reported on 11/28/2021 ) traMADol (ULTRAM) 50 mg tablet Take 1 tablet by mouth every 6 hours as needed for up to 180 days. omeprazole (PRILOSEC) 40 mg capsule Take 40 mg by mouth once daily. PRN Cholecalciferol, Vitamin D3, 50 mcg (2,000 unit) cap Take 1 capsule by mouth once daily. FABI-600 WITH VITAMIN D 600 MG-200 UNIT TAB Take one(1) tablet daily. No current facility-administered medications for this visit. Review of Systems Objective BP (P) 152/90 Pulse (P) 66 Wt (P) 80.3 kg (177 lb) LMP 04/02/2006 SpO2 (P) 97% BMI (P) 31.35 kg/m Last 5 Encounter Wt Readings: Date: Wt: 03/15/2022 81.2 kg (179 lb) 01/11/2022 80.7 kg (178 lb) 12/01/2021 79.8 kg (176 lb) 11/28/2021 78.5 kg (173 lb) 11/16/2021 79.8 kg (176 lb) No waist measurement recorded Estimated body mass index is 31.35 kg/m (pended) as calculated from the following: Height as of 11/28/21: 160 cm (5' 3 ). Weight as of this encounter: (P) 80.3 kg (177 lb). Last 5 Encounter BP Readings: Date: BP: 03/15/2022 158/78 01/11/2022 134/83[BP Diogenes average[ 01/11/2022 142/78 12/01/2021 152/82 11/28/2021 150/82 06/05/22 1325 06/05/22 1423 BP: (P) 152/90 132/82 BP Site: Left Arm BP Position: Sitting BP Cuff Size: Regular Adult Pulse: (P) 66 SpO2: (P) 97% Weight: (P) 80.3 kg (177 lb) Physical Exam Constitutional: Appearance: Normal appearance. HENT: Head: Normocephalic. Eyes: Conjunctiva/sclera: Conjunctivae normal. Cardiovascular: Rate and Rhythm: Normal rate and regular rhythm. Heart sounds: Normal heart sounds. Pulmonary: Effort: Pulmonary effort is normal. Breath sounds: Normal breath sounds. Skin: General: Skin is warm and dry. Neurological: General: No focal deficit present. Mental Status: She is alert and oriented to person, place, and time. Psychiatric: Mood and Affect: Mood normal. Behavior: Behavior normal. Thought Content: Thought content normal. Judgment: Judgment normal. Last labs: Component Latest Ref Rng & Units 12/01/2021 02/06/2022 Protein, Total 6.3 - 8.0 g/dL 7.1 Albumin 3.9 - 4.9 g/dL 4.0 Calcium 8.5 - 10.2 mg/dL 9.4 Bilirubin, Total 0.2 - 1.3 mg/dL 0.3 Alkaline Phosphatase 34 - 123 U/L 84 AST 13 - 35 U/L 17 ALT 7 - 38 U/L 14 Glucose 74 - 99 mg/dL 84 BUN 7 - 21 mg/dL 18 Creatinine 0.58 - 0.96 mg/dL 0.96 Sodium 136 - 144 mmol/L 141 Potassium 3.7 - 5.1 mmol/L 4.3 Chloride 97 - 105 mmol/L 105 CO2 22 - 30 mmol/L 26 Anion Gap 9 - 18 mmol/L 10 eGFR >=60 mL/min/1.73m 65 WBC 3.70 - 11.00 k/uL 4.91 5.88 RBC 3.90 - 5.20 m/uL 4.70 4.81 Hemoglobin 11.5 - 15.5 g/dL 12.8 13.6 Hematocrit 36.0 - 46.0 % 42.3 42.4 MCV 80.0 - 100.0 fL 90.0 88.1 MCH 26.0 - 34.0 pg 27.2 28.3 MCHC 30.5 - 36.0 g/dL 30.3 (L) 32.1 RDW-CV 11.5 - 15.0 % 14.2 16.2 (H) Platelet Count 150 - 400 k/uL 397 341 MPV 9.0 - 12.7 fL 10.8 10.7 Absolute nRBC <0.01 k/uL <0.01 <0.01 Cholesterol, Total <200 mg/dL 221 (H) Triglyceride <150 mg/dL 101 HDL Cholesterol >39 mg/dL 69 Non HDL Cholesterol <130 mg/dL 152 (H) Fasting Time hrs 12 VLDL Cholesterol <30 mg/dL 20 TC:HDL Ratio <5.10 3.20 LDL Cholesterol <100 mg/dL 132 (H) LDL:HDL Ratio <2.54 1.91 CCP Antibody IgG Qualitative Negative Negative CCP Antibody, IgG <20 Units <15 TSH 0.270 - 4.200 mIU/L 0.420 Free T4 0.9 - 1.7 ng/dL 1.6 Vitamin D 25 Hydroxy 31.0 - 80.0 ng/mL 32.1 WSR 0 - 20 mm/hr 10 Rheumatoid Factor <16 IU/mL 12 DREW by EIA, Qual Negative Negative CRP <0.9 mg/dL <0.3 Assessment and Plan ASSESSMENT/PLAN: 1. Acquired hypothyroidism - ICD9: 244.9, ICD10: E03.9 (primary diagnosis) - Instructed patient on importance of taking on an empty stomach either first thing in the morning or at bedtime. Adjust dose as indicated. Clinically euthyroid. - TSH BLD - T4 FREE/FREE THYROX - LEVOTHYROXINE 112 MCG TABLET 2. Vitamin D deficiency - ICD9: 268.9, ICD10: E55.9 Last level just in normal range at 32. Adjust dose as needed - VITAMIN D 25 HYDROXY 3. Primary hypertension - ICD9: 401.9, ICD10: I10 - suboptimal control - Continue current medication(s) - Recommended regular aerobic exercise. - Stressors noted - Monitor BP at home and if still high, plan to adjust BP meds - Goal of BP <130/80 - COMP METABOLIC PANEL - CBC - LIPID PANEL BASIC Dequan Hartman MD documented in this encounter [facility] 03-15-2022 History of Presen t illness Narrative Images from the original note were not included. PSYC FOLLOW UP - PSYCHIATRIC PROGRESS NOTE DIAGNOSIS: Generalized Anxiety Disorder MDD, recurrent, in partial remission GAF: -80-71 If symptoms are present, they are transient and expectable reactions to psychosocial stressors TREATMENT PLAN: Decrease dose of Venlafaxine back to 25 mg as patient has noticed overall improvement in her stress level. Utilize Ativan as needed for overwhelming episodes of anxiety. Rarely uses this and was not refilled at this visit. Encouraged to incorporating physical activity such as water aerobics that she used to enjoy before and dietary changes as she would like to lose weight. Follow up in 3 months. The effects and side effects of all the medications were reviewed in detail with the patient. PDMP report was reviewed and found to be appropriate without any signs of misuse or diversion. Patient is in agreement with the treatment plan and aware to reach out with any questions, concerns, or worsening of symptoms prior to the next appointment. CC: Follow up regarding mood and anxiety HPI: Lisset Lawler is a 66 year old Female with a history of MDD and LONNY presenting today for follow-up. Date of last visit: 01/11/2022 Plan from last visit: Continue Venlafaxine at the same dose to help with her anxiety. Utilize Ativan as needed for increased episodes of anxiety. Encouraged patient to attend a caregiver support group. Follow up in 2 to 3 months Today she shares that things have calmed down for her. Father is adjusting better to the care home. He still wishes to come home. Planning on moving into her father's home. His father's health has been better at the care home. Did increase the Venlafaxine dose for a short time but she would like to return to the 25 mg dose. She took a vacation with some of her friends. Looks forward to a class reunion in April. Looks forward to attending a wedding in April. Her son's health is still unstable. He has been helping them move and updating patient's father house. Still struggles with some guilt related to father's health and placing him in the care home. Rarely takes Ativan. Her sleep has improved as she does not have as much stress. Has good support in a close friend whose mother is also in a care home. She is a great grandmother now. Happy to report that the great grand baby and her grand daughter are doing well. She has been concerned about not losing weight. Has noticed benefit from weight watchers before. Used to enjoy water aerobics prior to the pandemic. Interval Progress: Improved Risks and benefits of the medication, including any black box warnings, were discussed with the patient. Social History: See HPI PATIENT DATA: Generalized Anxiety Disorder Scale (LONNY-7) LONNY - 7 SCORES 11/14/2021 11/30/2021 03/11/2022 LONNY-7 Score 3 6 2 (0-4) minimal anxiety, (5-9) mild anxiety, (10-14) moderate anxiety, (15-21) severe anxiety Patient Health Questionnaire (PHQ-9) PHQ-9 11/30/2021 01/04/2022 03/11/2022 Score 2 4 1 (0-4) minimal depression, (5-9) mild depression, (10-14) moderate depression, (15-19) moderately severe depression, (20-27) severe depression ROS: General: Negative for fever, malaise, unintentional weight loss HEENT: Negative for recent changes in vision or hearing, no nasal drainage Respiratory: Negative for cough, wheezing or SOB Cardiovascular: Negative for chest pain GI: Negative for nausea, vomiting, change in bowel habits MUSCULOSKELETAL: Negative for acute back or joint pain SKIN: Negative for rash NEURO: Negative for headaches, seizures, focal neurological deficits All other systems negative. VITAL SIGNS: BP 158/78 (03/15/22 1430) Temp Pulse 62 (08/31/22 1430) Resp SpO2 MENTAL STATUS EXAMINATION: Appearance: Appropriately groomed, appears stated age Behavior: Appropriately engaged Psychomotor: No psychomotor agitation Cognition Level of Consciousness: Awake and alert. No fluctuation in wakefulness. Orientation: Grossly oriented Memory: Intact Attention/Concentration: Good Fund of Knowledge: Able to demonstrate an awareness of current events. Mood: Euthymic Affect: Congruent to mood Speech/Language: Appropriate tone, prosody, efrain, phonetics, and syntax Thought Form: Goal-directed. No loosening of associations. Thought Content: No delusions noted or endorsed. Perceptual Disturbances: Did not appear to respond to auditory stimuli. Safety: Suicidal Ideations: No suicidal ideation, intent or plan. Homicidal Ideations: No homicidal ideation, intent or plan. Insight: Appropriate Judgment: Appropriate I spent a total of 28 minutes on the date of the service which included preparing to see the patient, [id number] patient care, completing clinical documentation, and counseling and educating the patient/family/caregiver, ordering medications/labs. Radha Fountain APRN.CNP March 15, 2022 2:32 PM This note was partially generated using Scuttledog voice recognition system. Note was reviewed for accuracy. There may be minor misspellings or grammar miscues with Scuttledog voice recognition. documented in this encounter [facility] 02-09-2022 Miscellaneous Notes Okayed Patient has been identified by name and date of : Yes Pending Prescriptions Disp Refills LEVOTHYROXINE 112 MCG TABLET 90 tablet 1 Sig: Take 1 tablet by mouth once daily. Take on empty stomach. For Thyroid AYDEN: No RX INSTRUCTIONS: Patient aware RX will be sent to pharmacy. No need to notify patient. [facility] 02-09-2022 Miscellaneous Notes The following approved medication requests have been transmitted electronically. Signed Prescriptions Disp Refills LORazepam (ATIVAN) 0.5 mg 20 tablet 0 Sig: Take 1 tablet by mouth twice daily as needed for up to 30 days. MAYRA Class: C-IV AYDEN: No Authorizing Provider: DEQUAN HARTMAN MD On historical list. Since her RX lasts longer than 60 days, it times off the current med list but she is still able to get refills Patient is requesting refill on medication not on her current medication list, she asks for lorazapam 0.5 mg one tablet by mouth twice a day (she only takes one at bedtime.) Please send to the [facility] documented in this encounter [facility] 01-13-2022 Miscellaneous Notes Spoke with pt and information listed below given. Pt verbalizes understanding. Pt will keep you update. Alondra Euceda LPN Last 5 Encounter BP Readings: Date: BP: 01/11/2022 134/83[BP Diogenes average[ 01/11/2022 142/78 12/01/2021 152/82 11/28/2021 150/82 11/16/2021 164/80 BP Diogenes is better than May BP/. If not having frequent BPs over 150 at home, and fatigue from med is tolerable, okay to stay on same dose of propranolol and continue to monitor BP and symptoms of fatigue. If wants to change med if fatigue too much, she just needs to let me know. Manual Readin/86 Pulse: 72 BP Diogenes average: 134/83 P: 70 Repeat BP Check: 134/87 P69 #1 132/82 P71 #2 130/80 P70 #3 134/81 P71 #4 136/83 P70 #5 137/84 P67 #6 Reason for blood pressure check - Last BP elevated and Medication adjustment Patient is: Taking medication as prescribed Yes Took medication today Yes If no, date medication last taken N/A Experiencing side effects No BP was elevated at last appt 11/28/21. Was started on Propranolol 60mg daily. Tolerating medication well. Does note some increased fatigue since starting medication. Home readings have ranged 138-181/75-106 (did not bring monitor today). Denies any chest pain, shortness of breath, dizziness, or headaches. Daily caffeine use. No personal history of tobacco use; no current exposure. Alert and oriented. Pt has been identified by name and birthdate: Yes Allergies reviewed: Yes Latex allergy: no. Medication - prescribed and OTC reviewed and updated: Yes Do you need any prescription refills prior to your next visit: No Health Maintenance: Reviewed and not up to date and provider notified Patient advised that she would be contacted after review by PCP. Christiana Simpson LPN documented in this encounter [facility] 01-11-2022 History of Presen t illness Narrative Images from the original note were not included. PSYC FOLLOW UP - PSYCHIATRIC PROGRESS NOTE DIAGNOSIS: 1. Generalized Anxiety Disorder 2. MDD, recurrent, in partial remission GAF: -70-61 Some mild symptoms or some difficulty in social, occupational, or school functioning, but generally functioning pretty well. TREATMENT PLAN: 1. Continue Venlafaxine at the same dose to help with her anxiety. 2. Utilize Ativan as needed for increased episodes of anxiety. 3. Encouraged patient to attend a caregiver support group. 4. Follow up in 2 to 3 months The effects and side effects of all the medications were reviewed in detail with the patient. PDMP report was reviewed and found to be appropriate without any signs of misuse or diversion. Patient is in agreement with the treatment plan and aware to reach out with any questions, concerns, or worsening of symptoms prior to the next appointment. CC: Follow up regarding her mood and anxiety. HPI: Lisset Lawler is a 66 year old Female with a history of LONNY and MDD presenting today for follow-up. Date of last visit: 12/01/2021 Plan from last visit: 1. Continue on the 25 mg dose of Effexor currently. Consider changing to extended release formulation if we need to increase Effexor dose to manage anxiety. 2. Continue Inderal as prescribed by PCP as that will help with her BP and anxiety. 3. Encouraged patient to attend support group for caregivers. Provided information for a few support group in her area. 4. Continue to utilize Ativan as needed for increased feelings of anxiety. 5. Follow up in 4 weeks. Today Lisset shares that she had a scare in her mammogram. Has a family history for breast cancer. She did have a biopsy and it was non cancerous. She is feeling much better now compared to how she felt a week ago. [place] has sent home health aids for his father. She gets a break 3 days a week. Hospice has been involved in care of her dad. They reduced his medications and did provide him a PRN for agitation and anxiety. Concerned about brother and her father getting in verbal altercations. He is not a good farm or ranch animal caretaker. He stays there 2 nights. Uses Ativan only as needed. Takes only 1/2 tablet as the full tablet makes her drowsy. Most days she has been coping better than she did last month. Tolerating Venlafaxine without any side effects. Feels that Venlafaxine at this dose is supporting her anxiety well. Found out her 21 year old grand daughter is . She lives in [place]. Her father is not accepting of it. They don't know her partner well. She is happy but concerned about the situation. Started a meditation tape and music for relaxation. This has been helping her fall and stay asleep. Interval Progress: Improved Risks and benefits of the medication, including any black box warnings, were discussed with the patient. Social History: See HPI PATIENT DATA: Generalized Anxiety Disorder Scale (LONNY-7) LONNY - 7 SCORES 08/14/2021 11/14/2021 11/30/2021 LONNY-7 Score 2 3 6 (0-4) minimal anxiety, (5-9) mild anxiety, (10-14) moderate anxiety, (15-21) severe anxiety Patient Health Questionnaire (PHQ-9) PHQ-9 11/14/2021 11/30/2021 01/04/2022 Score 1 2 4 (0-4) minimal depression, (5-9) mild depression, (10-14) moderate depression, (15-19) moderately severe depression, (20-27) severe depression ROS: General: Negative for fever, malaise, unintentional weight loss HEENT: Negative for recent changes in vision or hearing, no nasal drainage Respiratory: Negative for cough, wheezing or SOB Cardiovascular: Negative for chest pain GI: Negative for nausea, vomiting, change in bowel habits MUSCULOSKELETAL: Negative for acute back or joint pain SKIN: Negative for rash NEURO: Negative for headaches, seizures, focal neurological deficits All other systems negative. VITAL SIGNS: BP 142/78 (01/11/22 1555) Temp Pulse Resp SpO2 MENTAL STATUS EXAMINATION: Appearance: Appropriately groomed, appears stated age Behavior: Appropriately engaged Psychomotor: No psychomotor agitation Cognition Level of Consciousness: Awake and alert. No fluctuation in wakefulness. Orientation: Grossly oriented Memory: Intact Attention/Concentration: Good Fund of Knowledge: Able to demonstrate an awareness of current events. Mood: Euthymic Affect: Congruent to mood Speech/Language: Appropriate tone, prosody, efrain, phonetics, and syntax Thought Form: Goal-directed. No loosening of associations. Thought Content: No delusions noted or endorsed. Perceptual Disturbances: Did not appear to respond to auditory stimuli. Safety: Suicidal Ideations: No suicidal ideation, intent or plan. Homicidal Ideations: No homicidal ideation, intent or plan. Insight: Appropriate Judgment: Appropriate I spent a total of 28 minutes on the date of the service which included preparing to see the patient, [id number] patient care, completing clinical documentation, and counseling and educating the patient/family/caregiver, ordering medications/labs. Radha Fountain APRN.LENORA January 11, 2022 4:11 PM documented in this encounter [facility] 01-11-2022 History of Presen t illness Narrative Manual Readin/86 Pulse: 72 BP Diogenes average: 134/83 P: 70 Repeat BP Check: 134/87 P69 #1 132/82 P71 #2 130/80 P70 #3 134/81 P71 #4 136/83 P70 #5 137/84 P67 #6 Reason for blood pressure check - Last BP elevated and Medication adjustment Patient is: Taking medication as prescribed Yes Took medication today Yes If no, date medication last taken N/A Experiencing side effects No BP was elevated at last appt 11/28/21. Was started on Propranolol 60mg daily. Tolerating medication well. Does note some increased fatigue since starting medication. Home readings have ranged 138-181/75-106 (did not bring monitor today). Denies any chest pain, shortness of breath, dizziness, or headaches. Daily caffeine use. No personal history of tobacco use; no current exposure. Alert and oriented. Pt has been identified by name and birthdate: Yes Allergies reviewed: Yes Latex allergy: no. Medication - prescribed and OTC reviewed and updated: Yes Do you need any prescription refills prior to your next visit: No Health Maintenance: Reviewed and not up to date and provider notified Patient advised that she would be contacted after review by PCP. Christiana Simpson LPN documented in this encounter [facility] 12-28-2021 Note HNO ID: [id number] Author: MARK Tao Service: Radiology Author Type: Technologist Type: Patient Education Filed: 12/28/2021 9:33 AM Note Text: Patient provided At Home Instructions pamphlet which was verbally reviewed [facility] 12-28-2021 Miscellaneous Notes Patient provided At Home Instructions pamphlet which was verbally reviewed documented in this encounter [facility] 12-27-[address] Beckham, I transferred patient to the schedulers at [phone]. They should be taking care of her from there. Thank you for your quick response back to me. I was happy to assist her. I called patient and she said that she has not heard back yet but thought Dr Beckham was to get back with her after talking to her last week. Dr Beckham, do we need to intervene for patient or is this being worked on by your office documented in this encounter [facility] 12-21-[address] Beckham asked this nurse to contact the patient to let her know that she would review all of her imaging and contact her tomorrow. The patient was called and verbalized understanding. Shelby Morrow RN documented in this encounter [facility] 12-16-2021 Miscellaneous Notes Patient notified, verbalized understanding. Ilan Maurice Ma 2 years between bone density Plan to do next year. Canceled the old order that was still on file (problably reason patient was calling). Ordered for next year--see if stays in system that long. Pt called to schedule a Bone Density. The order may before she is due. She had one last year on 02/07/21. Is she to have one this year? Please let her know. She was not sure. documented in this encounter [facility] 12-16-2021 Miscellaneous Notes Patient notified, verbalized understanding. Ilan Maurice Ma Patient's request for medication is as follows: Signed Prescriptions Disp Refills venlafaxine (EFFEXOR) 25 mg tablet 90 tablet 3 Sig: Take 1 tablet by mouth daily with dinner. AYDEN: No propranolol ER (INDERAL LA) 60 mg 24 hr capsule 90 capsule 3 Sig: Take 1 capsule by mouth once daily. AYDEN: No triamcinolone acetonide (KENALOG) 0.1 % cream 45 g 0 Sig: Apply sparingly to area for rash/itching. AYDEN: No Prescription(s) printed as above. Please process accordingly. Patient calling to check status of request. Patient wanted to cloth picker these written rx today, aware PCP is out of office on . Please call [phone] when ready to cloth picker. Orders pended. Please advise. documented in this encounter [facility] 12-15-2021 Instructions Dequan Hartman MD - 12/15/2021 5:07 PM EDT BONE MINERAL DENSITY PATIENT INSTRUCTIONS ========= Bone mineral density testing measures the amount of calcium in certain parts of your bones. This information determines how strong your bones are. The test is used to detect osteoporosis, a disease in which the bone's mineral content and density are low, increasing a person's risk of fractures. The lumbar spine (lower back) and the hip are the skeletal sites usually examined. For the test, remember that: 1. You cannot take this test if you are . 2. Eat a normal diet on the day of the test. 3. Take your medications as you normally would. 4. DO NOT take calcium supplements (such as Tums) for 24 hours before the test. 5. On the day of the test, leave valuables (jewelry or credit cards) at home. 6. The test should be performed prior to oral, rectal or IV contrast studies, or at least 7 days after any of these studies. For the test, you may be asked to wear a hospital gown. You will lie on your back, on a padded table, in a comfortable position. Generally, you can resume your usual activities immediately. documented in this encounter [facility] 12-09-2021 Miscellaneous Notes CD READY FOR [facility] Patient called requesting to cloth picker disc of mams on 12/14 from 04-23-14 11-23-20 11-28-21 Any questions she can be reached at [phone] Thank you Mare Snyder Pss documented in this encounter [facility] 12-08-2021 Miscellaneous Notes I have called the patient and have explained that our care path advises to discontinue MRI at 63. She is not comfortable with waiting so long for diagnostic imaging and I will place an order for her to have it done at [facility]. Matthew Beckham MD documented in this encounter [facility] 11-28-2021 Miscellaneous Notes November 28, 2021 PID: [id number] Lisset Lawler [address] [place] [address] Dear Ms. Lawler, Your recent breast imaging exam on 11/28/2021 showed a possible finding that requires additional imaging studies for a complete evaluation. Most such findings are probably benign (not cancer). If you have a healthcare provider who ordered/prescribed your screening mammogram: Please call [phone] or [phone] to schedule an appointment for your additional imaging (if you have not already done so). If you DO NOT have a healthcare provider (ie you did not have an order/prescription for your screening mammogram): Please call to schedule an appointment for your additional imaging (if you have not already done so). You must have an order/prescription from your physician when calling to schedule your appointment. If your order/prescription is not electronic, you must bring the hard copy with you on the day of your exam to avoid delays. Your imaging studies and reports are kept on file at [facility] as part of your permanent medical record, and are available for your continuing care. Thank you for allowing us to help in meeting your health care needs. Sincerely, Dr. Love Interpreting Radiologist [facility] (Additional imaging) documented in this encounter [facility] 11-18-2021 Instructions Radha Fountain APRN.CNP - 11/18/2021 9:51 AM EDT Raad Darling, Below is a summary of the plan that we discussed during your appointment for reference. Of course, if you have any questions or concerns do not hesitate to reach out to me via a message or call. Krish, Radha Fountain APRN.LENORA PLAN AND FOLLOW UP: YOU SHOULD SEEK IMMEDIATE MEDICAL ATTENTION AT THE NEAREST EMERGENCY DEPARTMENT OR BY CALLING 911, IF ANY OF THE FOLLOWING OCCURS: - New or worsening thoughts of harming yourself (suicidal thoughts) or others (homicidal thoughts) - Not feeling safe at home or worrying about your ability to remain safe at home If you are having thoughts of harming yourself or others, then you can: - Call the National Suicide Hotline at 9-767-LDQGIDT ( ) or 6-853-939-TALK (6664) - Text 4HFVC to 115117 Medications: 1. Effexor 25 mg take 1 and a half tablet once daily with dinner 2. Ativan 0.5 mg take 1 tablet up to 2 times daily as needed for increased feelings of anxiety Next appointment: December 01 at 10:30 am -- You may call the department appointment line at [phone] to reschedule your appointment. -- Please call my nurse Sarahy at [phone] or send me a message in [facility] with any questions or concerns between appointments. documented in this encounter [facility] 11-16-2021 History of Presen t illness Narrative Images from the original note were not included. PSYC FOLLOW UP - PSYCHIATRIC PROGRESS NOTE DIAGNOSIS: 1. Generalized anxiety disorder 2. Major depressive disorder, recurrent, moderate GAF: -60-51 Moderate symptoms or moderate difficulty in social, occupational or school functioning. TREATMENT PLAN: 1. Increase Effexor to help with his anxiety and mood symptoms. 2. Continue to utilize Ativan as needed. 3. Encouraged patient to attend a grief support group. 4. Discussed the importance of incorporating self-care and coping skills. 5. Follow up in 2 weeks. Medication Update: 1. Effexor 25 mg take 1 and a half tablet once daily with dinner 2. Ativan 0.5 mg take 1 tablet up to 2 times daily as needed for increased feelings of anxiety The effects and side effects of her medications were reviewed in detail with the patient. PDMP report was reviewed and found to be appropriate without any signs of misuse or diversion. Patient denies any recent episodes of dizziness or falls. She is in agreement with the treatment plan. She is aware to reach out with any questions, concerns, or worsening of symptoms prior to the next appointment CC: Follow-up regarding depression and anxiety HPI: Lisset Lawler is a 66 year old Female with a history of LONNY and MDD presenting today for follow-up. Date of last visit: 08/16/2021 Plan from last visit: 1. Increase venlafaxine to 25 mg to consistently support her mood and anxiety symptoms. 2. Utilize Ativan as needed for increased episodes of anxiety. 3. Continue to incorporate self-care as well as physical activity into her daily routine. Today Lisset shares that her mother recently. A few days after that her father had a stroke. Patient and her son are helping care for him. His stroke has caused significant cognitive and physical limitations. Her son has been struggling with his health struggles. Lisset currently feels overwhelmed with her responsibilities. Father is refusing to get home health care help as he is concerned people will steal from him. She has minimal support from her brother in caring for her father. She has noticed that she is feeling more anxious and overwhelmed. Noticed that she is needing Ativan for sleep 2 to 3 times a night. She felt that Venlafaxine was helping until her mother passed. Denies any side effects from the venlafaxine. In agreement to try a higher dose of venlafaxine. The importance of grief support group as well as patient getting respite was discussed in detail. Patient does verbalize understanding and shares that she does not think that she has been able to appropriately grieve the loss of her mother. Interval Progress: Slightly worse Risks and benefits of the medication, including any black box warnings, were discussed with the patient. Social History: See HPI PATIENT DATA: Generalized Anxiety Disorder Scale (LONNY-7) LONNY - 7 SCORES 07/13/2021 08/14/2021 11/14/2021 LONNY-7 Score 11 2 3 (0-4) minimal anxiety, (5-9) mild anxiety, (10-14) moderate anxiety, (15-21) severe anxiety Patient Health Questionnaire (PHQ-9) PHQ-9 07/13/2021 08/14/2021 11/14/2021 Score 11 1 1 (0-4) minimal depression, (5-9) mild depression, (10-14) moderate depression, (15-19) moderately severe depression, (20-27) severe depression ROS: General: Negative for fever, malaise, unintentional weight loss HEENT: Negative for recent changes in vision or hearing, no nasal drainage Respiratory: Negative for cough, wheezing or SOB Cardiovascular: Negative for chest pain GI: Negative for nausea, vomiting, change in bowel habits MUSCULOSKELETAL: Negative for acute back or joint pain SKIN: Negative for rash NEURO: Negative for headaches, seizures, focal neurological deficits All other systems negative. VITAL SIGNS: BP 164/80 (11/16/21 1302) Temp Pulse 80 (11/16/21 1302) Resp SpO2 MENTAL STATUS EXAMINATION: Appearance: Appropriately groomed, appears stated age Behavior: Appropriately engaged Psychomotor: No psychomotor agitation Cognition Level of Consciousness: Awake and alert. No fluctuation in wakefulness. Orientation: Grossly oriented Memory: Intact Attention/Concentration: Good Fund of Knowledge: Able to demonstrate an awareness of current events. Mood: depressed Affect: Tearful Speech/Language: Appropriate tone, prosody, efrain, phonetics, and syntax Thought Form: Goal-directed. No loosening of associations. Thought Content: No delusions noted or endorsed. Perceptual Disturbances: Did not appear to respond to auditory stimuli. Safety: Suicidal Ideations: No suicidal ideation, intent or plan. Homicidal Ideations: No homicidal ideation, intent or plan. Insight: Appropriate Judgment: Appropriate I spent a total of 38 minutes on the date of the service which included preparing to see the patient, [id number] patient care, completing clinical documentation, and counseling and educating the patient/family/caregiver, ordering medications/labs. Radha Fountain APRN.LENORA November 16, 2021 1:04 PM documented in this encounter [facility] 09-12-2021 Miscellaneous Notes My condolences Sent [facility] message The following approved medication requests have been transmitted electronically. Signed Prescriptions Disp Refills LORazepam (ATIVAN) 0.5 mg 20 tablet 0 Sig: Take 1 tablet by mouth twice daily as needed for up to 30 days. MAYRA Class: C-IV AYDEN: No Authorizing Provider: DEQUAN HARTMAN MD Requested in Transmit message, mother documented in this encounter [facility] documented as of this encounter (statuses as of 10/07/2021) [facility] History of Past illness Narrative* Problem Noted Date Resolved Date Hip strain 02/22/2015 04/30/2020 documented as of this encounter (statuses as of 11/18/2021) [facility] History of Past illness Narrative* Problem Noted Date Resolved Date Hip strain 02/22/2015 04/30/2020 documented as of this encounter (statuses as of 11/24/2021) [facility] History of Past illness Narrative* Problem Noted Date Resolved Date Hip strain 02/22/2015 04/30/2020 documented as of this encounter (statuses as of 11/28/2021) [address] History of Past illness Narrative* Problem Noted Date Resolved Date Hip strain 02/22/2015 04/30/2020 documented as of this encounter (statuses as of 11/29/2021) [address] History of Past illness Narrative* Problem Noted Date Resolved Date Hip strain 02/22/2015 04/30/2020 documented as of this encounter (statuses as of 11/30/2021) [address] History of Past illness Narrative* Problem Noted Date Resolved Date Hip strain 02/22/2015 04/30/2020 documented as of this encounter (statuses as of 12/08/2021) [address] History of Past illness Narrative* Problem Noted Date Resolved Date Hip strain 02/22/2015 04/30/2020 documented as of this encounter (statuses as of 12/16/2021) [address] History of Past illness Narrative* Problem Noted Date Resolved Date Hip strain 02/22/2015 04/30/2020 documented as of this encounter (statuses as of 12/16/2021) [address] History of Past illness Narrative* Problem Noted Date Resolved Date Hip strain 02/22/2015 04/30/2020 documented as of this encounter (statuses as of 12/21/2021) [address] History of Past illness Narrative* Problem Noted Date Resolved Date Hip strain 02/22/2015 04/30/2020 documented as of this encounter (statuses as of 12/23/2021) [address] History of Past illness Narrative* Problem Noted Date Resolved Date Hip strain 02/22/2015 04/30/2020 documented as of this encounter (statuses as of 12/27/2021) [address] History of Past illness Narrative* Problem Noted Date Resolved Date Hip strain 02/22/2015 04/30/2020 documented as of this encounter (statuses as of 12/28/2021) [address] History of Past illness Narrative* Problem Noted Date Resolved Date Hip strain 02/22/2015 04/30/2020 documented as of this encounter (statuses as of 12/29/2021) [address] History of Past illness Narrative* Problem Noted Date Resolved Date Hip strain 02/22/2015 04/30/2020 documented as of this encounter (statuses as of 12/29/2021) [address] History of Past illness Narrative* Problem Noted Date Resolved Date Hip strain 02/22/2015 04/30/2020 documented as of this encounter (statuses as of 01/11/2022) [address] History of Past illness Narrative* Problem Noted Date Resolved Date Hip strain 02/22/2015 04/30/2020 documented as of this encounter (statuses as of 01/13/2022) [address] History of Past illness Narrative* Problem Noted Date Resolved Date Hip strain 02/22/2015 04/30/2020 documented as of this encounter (statuses as of 01/14/2022) [address] History of Past illness Narrative* Problem Noted Date Resolved Date Hip strain 02/22/2015 04/30/2020 documented as of this encounter (statuses as of 02/09/2022) [address] History of Past illness Narrative* Problem Noted Date Resolved Date Hip strain 02/22/2015 04/30/2020 documented as of this encounter (statuses as of 02/09/2022) [address] History of Past illness Narrative* Problem Noted Date Resolved Date Hip strain 02/22/2015 04/30/2020 documented as of this encounter (statuses as of 03/15/2022) [address] History of Past illness Narrative* Problem Noted Date Resolved Date Hip strain 02/22/2015 04/30/2020 documented as of this encounter (statuses as of 06/14/2022) [address] History of Past illness Narrative* Problem Noted Date Resolved Date Hip strain 02/22/2015 04/30/2020 documented as of this encounter (statuses as of 06/30/2022) [address] History of Past illness Narrative* Problem Noted Date Resolved Date Hip strain 02/22/2015 04/30/2020 documented as of this encounter (statuses as of 07/05/2022) [address] History of Past illness Narrative* Problem Noted Date Resolved Date Hip strain 02/22/2015 04/30/2020 documented as of this encounter (statuses as of 07/09/2022) [address] History of Past illness Narrative* Problem Noted Date Resolved Date Hip strain 02/22/2015 04/30/2020 documented as of this encounter (statuses as of 07/16/2022) [address] History of Past illness Narrative* Problem Noted Date Resolved Date Hip strain 02/22/2015 04/30/2020 documented as of this encounter (statuses as of 08/09/2022) [address] History of Past illness Narrative* Problem Noted Date Resolved Date Hip strain 02/22/2015 04/30/2020 documented as of this encounter (statuses as of 08/11/2022) [address] History of Past illness Narrative* Problem Noted Date Resolved Date Hip strain 02/22/2015 04/30/2020 documented as of this encounter (statuses as of 08/23/2022) [address] History of Past illness Narrative* Problem Noted Date Resolved Date Hip strain 02/22/2015 04/30/2020 documented as of this encounter (statuses as of 09/08/2022) [address] History of Past illness Narrative* Problem Noted Date Resolved Date Hip strain 02/22/2015 04/30/2020 documented as of this encounter (statuses as of 09/29/2022) [address] History of Past illness Narrative* Problem Noted Date Resolved Date Hip strain 02/22/2015 04/30/2020 documented as of this encounter (statuses as of 11/14/2022) [address] History of Past illness Narrative* Problem Noted Date Resolved Date Hip strain 02/22/2015 04/30/2020 documented as of this encounter (statuses as of 12/18/2022) [address] History of Past illness Narrative* Problem Noted Date Resolved Date Hip strain 02/22/2015 04/30/2020 documented as of this encounter (statuses as of 01/01/2023) [address] History of Past illness Narrative* Problem Noted Date Resolved Date Hip strain 02/22/2015 04/30/2020 documented as of this encounter (statuses as of 01/03/2023) [address] History of Past illness Narrative* Problem Noted Date Diagnosed Date Resolved Date Hip strain 02/22/2015 04/30/2020 documented as of this encounter (statuses as of 02/12/2023) [address] History of Past illness Narrative* Problem Noted Date Diagnosed Date Resolved Date Hip strain 02/22/2015 04/30/2020 documented as of this encounter (statuses as of 02/12/2023) [address] History of Past illness Narrative* Problem Noted Date Diagnosed Date Resolved Date Hip strain 02/22/2015 04/30/2020 documented as of this encounter (statuses as of 04/04/2023) [address] History of Past illness Narrative* Problem Noted Date Diagnosed Date Resolved Date Hip strain 02/22/2015 04/30/2020 documented as of this encounter (statuses as of 04/06/2023) [address] History of Past illness Narrative* Problem Noted Date Diagnosed Date Resolved Date Hip strain 02/22/2015 04/30/2020 documented as of this encounter (statuses as of 05/20/2023) [address] History of Past illness Narrative* Problem Noted Date Diagnosed Date Resolved Date Hip strain 02/22/2015 04/30/2020 documented as of this encounter (statuses as of 05/20/2023) [address] History of Past illness Narrative* Problem Noted Date Diagnosed Date Resolved Date Hip strain 02/22/2015 04/30/2020 documented as of this encounter (statuses as of 05/20/2023) [address] History of Past illness Narrative* Problem Noted Date Diagnosed Date Resolved Date Hip strain 02/22/2015 04/30/2020 documented as of this encounter (statuses as of 05/31/2023) [address] History of Past illness Narrative* Problem Noted Date Diagnosed Date Resolved Date Hip strain 02/22/2015 04/30/2020 documented as of this encounter (statuses as of 06/05/2023) [facility] No data available for this section [facility] Evaluation note* Diagnosis LONNY (generalized anxiety disorder)- Primary Generalized anxiety disorder Major depressive disorder, recurrent episode, moderate (HCC) Major depressive disorder, recurrent episode, moderate [facility] [place]* Diagnosis Abnormal mammogram- Primary Abnormal mammogram, unspecified [facility] [place] [facility]* Diagnosis Anxiety Anxiety state, unspecified [facility] [place] [facility]* Diagnosis Fibrocystic breast changes, bilateral- Primary Abnormal mammogram Abnormal mammogram, unspecified Monoallelic mutation of JOSE gene documented in this encounter [facility] note* Diagnosis Primary hypertension Unspecified essential hypertension [facility] [place] [facility]* Diagnosis Asymptomatic postmenopausal status- Primary [facility] [place] [facility]* Diagnosis Abnormal breast exam- Primary Other sign and symptom in breast [facility] [place] [facility]* Diagnosis Fibrocystic breast changes, bilateral Monoallelic mutation of JOSE gene Abnormal mammogram Abnormal mammogram, unspecified documented [facility] [place] [facility]* Diagnosis Research subject- Primary [facility] [place] [facility] Diagnosis Primary hypertension- Primary Unspecified essential hypertension [facility] [place] [facility]* Diagnosis LONNY (generalized anxiety disorder)- Primary Generalized anxiety disorder Recurrent major depressive disorder, in partial remission (HCC) documented [facility] [place] [facility]* Diagnosis LONNY (generalized anxiety disorder)- Primary Generalized anxiety disorder [facility] [place] [facility]* Diagnosis LONNY (generalized anxiety disorder)- Primary Generalized anxiety disorder Recurrent major depressive disorder, in partial remission (HCC) documented [facility] [place] [facility]* Diagnosis Acquired hypothyroidism- Primary Unspecified hypothyroidism Vitamin D deficiency Unspecified vitamin D deficiency Primary hypertension Unspecified essential hypertension documented in this encounter [facility] note* Diagnosis Vaginal odor- Primary Unspecified symptom associated with female genital organs Low back pain, unspecified back pain laterality, unspecified chronicity, unspecified whether sciatica present [facility] [place] [facility]* Diagnosis Fibrocystic breast changes, bilateral- Primary Monoallelic mutation of JOSE gene Encounter for screening mammogram for malignant neoplasm of breast Other screening mammogram documented in this encounter [facility] note* Diagnosis Nausea- Primary Nausea alone [facility] [place] [facility]* Diagnosis Nausea- Primary Nausea alone Stomach irritation Unspecified functional disorder of stomach [facility] [place] [facility]* Diagnosis Acquired hypothyroidism Unspecified hypothyroidism LONNY (generalized anxiety disorder) Generalized anxiety disorder documented [facility] [place] [facility]* Diagnosis Acquired hypothyroidism Unspecified hypothyroidism documented [facility] [place] [facility]* Diagnosis Fibrocystic breast changes, bilateral- Primary Family history of breast cancer Family history of malignant neoplasm of breast Monoallelic mutation of JOSE gene Visit for screening mammogram Other screening mammogram [facility] [place] [facility]* Diagnosis Acquired hypothyroidism- Primary Unspecified hypothyroidism Vitamin D deficiency Unspecified vitamin D deficiency Primary hypertension Unspecified essential hypertension Localized swelling of right foot Hyperlipidemia, unspecified hyperlipidemia type Encounter for long-term current use of medication Bee sting allergy Allergy to insects and arachnids Recurrent major depressive disorder, in partial remission (HCC) documented [facility] [place] [facility]* Diagnosis Acquired hypothyroidism Unspecified hypothyroidism Bee sting allergy Allergy to insects and arachnids documented in this encounter [facility] note* Diagnosis Acquired hypothyroidism Unspecified hypothyroidism documented [facility] [place] [facility]* Diagnosis Cellulitis of right lower extremity- Primary Cellulitis and abscess of leg, except foot Insect bite of right foot, initial encounter [facility] [place] [facility]* Diagnosis Medicare annual wellness visit, subsequent- Primary Routine general medical examination at a health care facility Hyperlipidemia, unspecified hyperlipidemia type Acquired hypothyroidism Unspecified hypothyroidism Major depressive disorder, recurrent episode, moderate (HCC) Major depressive disorder, recurrent episode, moderate Obesity, Class I, BMI 30-34.9 Obesity, unspecified Mild cognitive impairment Mild cognitive impairment, so stated Cellulitis of right lower extremity Cellulitis and abscess of leg, except foot documented [facility] [place] [facility]* Diagnosis Heartburn- Primary Nausea Nausea alone documented [facility] [place] [facility]* Diagnosis Fibrocystic breast changes, bilateral Abnormal mammogram Abnormal mammogram, unspecified Monoallelic mutation of JOSE gene documented in this encounter [facility] note* Diagnosis Bee sting allergy Allergy to insects and arachnids [facility] No data available for this section [facility] Reason for referral (narrative)* Diagnostic Procedure Only (Routine) - Pending Review Specialty Diagnoses / Procedures Referred By Contac t Referred To Contact [facility] Diagnoses Abnormal mammogram Procedures US BREAST LTD LT US BREAST UNI REAL TIME WITH IMAGE LIMITED Avani Flowers MD [address] [place] [address] [facility] [address] [place] [address] Referral ID Status Reason Start Date Expiration Date Visits Requested Visits Authorized [id number] Pending Review Auto-Generat ed Referral 11/28/2021 12/28/2022 1 1 * Diagnostic Procedure Only (Routine) - Pending Review Specialty Diagnoses / Procedures Referred By Contac t Referred To Contact [facility] Diagnoses Abnormal mammogram Procedures HERBERT DIAGNOSTIC LT DIAGNOSTIC MAMMOGRAPHY COMPUTER-AIDED DETCJ UNI Avani Flowers MD [address] [place] [address] [facility] [address] [place] [address] Referral ID Status Reason Start Date Expiration Date Visits Requested Visits Authorized [id number] Pending Review Auto-Generat ed Referral 11/28/2021 12/28/2022 1 1 [facility] for referral (narrative)* Diagnostic Procedure Only (Routine) - Pending Review Specialty Diagnoses / Procedures Referred By Contac t Referred To Contact [facility] Diagnoses Fibrocystic breast changes, bilateral Abnormal mammogram Monoallelic mutation of JOSE gene Procedures US BREAST LTD LT US BREAST UNI REAL [place] [address] [facility] [address] [place] [address] [facility] [address] [place] [address] Referral ID Status Reason Start Date Expiration Date Visits Requested Visits Authorized [id number] Pending Review Auto-Generat ed Referral 12/08/2021 01/07/2023 1 1 * Diagnostic Procedure Only (Routine) - Pending Review Specialty Diagnoses / Procedures Referred By Morgan garcia Referred To Contact [facility] Diagnoses Fibrocystic breast changes, bilateral Abnormal mammogram Monoallelic mutation of JOSE gene Procedures HERBERT DIAGNOSTIC LT DIAGNOSTIC MAMMOGRAPHY COMPUTER-AIDED [place] [address] [place] [address] [facility] [address] [place] [address] Referral ID Status Reason Start Date Expiration Date Visits Requested Visits Authorized [id number] Pending Review Auto-Generat ed Referral 01/07/2023 1 1 [facility] for referral (narrative)* Diagnostic Procedure Only (Routine) - Closed Specialty Diagnoses / Procedures Referred By Mrogan garcia Referred To Contact [facility] Diagnoses Fibrocystic breast changes, bilateral Monoallelic mutation of JOSE gene Abnormal mammogram Procedures US BIOPSY BREAST LT BX BREAST W/DEVICE 1ST [place] [address] [place] [address] [facility] [address] [place] [address] Referral ID Status Reason Start Date Expiration Date V isits Requested Visits Authorized [id number] Closed Auto-Generate d Referral 12/22/2021 01/21/2023 1 1 [facility] for referral (narrative)* Diagnostic Procedure Only (Routine) - Pending Review Specialty Diagnoses / Procedures Referred By Morgan garcia Referred To Contact [facility] Diagnoses Fibrocystic breast changes, bilateral Monoallelic mutation of JOSE gene Encounter for screening mammogram for malignant neoplasm of breast Procedures HERBERT SCREENING W CARRIE SCREENING DIGITAL BREAST TOMOSYNTHESIS BI SCREENING MAMMOGRAPHY BI 2-[place] [address] [place] [address] [facility] [address] [place] [address] Referral ID Status Reason Start Date Expiration Date Visits Requested Visits Authorized [id number] Pending Review Auto-Generat ed Referral 08/06/2023 1 1 [facility] for referral (narrative)* Outpatient Procedure (Routine) - Closed Specialty Diagnoses / Procedures [facility] Diagnoses Nausea Procedures EGD DIAGNOSTIC ESOPHAGOGASTRODUODENOSC OPY TRANSORAL DIAGNOSTIC Beth Owens MD [address] [facility] [place] [address] [address] Referral ID Status Reason Start Date Expiration Date V isits Requested Visits Authorized [id number] Closed Auto-Generate d Referral 08/10/2022 08/10/2023 1 1 [facility] for referral (narrative)* Diagnostic Procedure Only (Routine) - Closed Specialty Diagnoses / Procedures Referred By [facility] Referred To Contact [facility] Diagnoses Fibrocystic breast changes, bilateral Family history of breast cancer Monoallelic mutation of JOSE gene Visit for screening mammogram Procedures HERBERT SCREENING W CARRIE SCREENING DIGITAL BREAST TOMOSYNTHESIS BI SCREENING MAMMOGRAPHY BI 2-VIEW BREAST INC Flaca Hunter MD [address] [place] [address] [facility] [address] [place] [address] Referral ID Status Reason Start Date Expiration Date V isits Requested Visits Authorized [id number] Closed Auto-Generate d Referral 12/18/2022 01/17/2024 1 1 [facility] for referral (narrative)* Outpatient Procedure (Routine) - Closed Specialty Diagnoses / Procedures Referred By [facility] Referred To Contact [facility] Diagnoses Nausea Procedures EGD DIAGNOSTIC ESOPHAGOGASTRODUODENOSC OPY TRANSORAL DIAGNOSTIC Beth Owens MD [address] [place] [address] [facility] [address] [place] [address] Referral ID Status Reason Start Date Expiration Date V isits Requested Visits Authorized [id number] Closed Auto-Generate d Referral 08/10/2022 08/10/2023 1 1 [facility] for visit Narrative* Diagnostic Procedure Only (Routine) - Closed Specialty Diagnoses / Procedures Referred By Morgan garcia Referred To Contact [facility] Diagnoses Fibrocystic breast changes, bilateral Monoallelic mutation of JOSE gene Abnormal mammogram Procedures US BIOPSY BREAST LT BX BREAST W/DEVICE 1ST [place] [address] [facility] [address] [place] [address] [facility] [address] [place] [address] Referral ID Status Reason Start Date Expiration Date V isits Requested Visits Authorized [id number] Closed Auto-Generate d Referral 12/22/2021 01/21/2023 1 1 [facility] Summary Purpose Family History No Family History Records FoundNo Family History Records FoundNo Family History Records FoundNo Family History Records FoundNo Family History Records FoundNo Family History Records Found Advance Directives No Advanced Directives Records FoundDocuments on File Type Date Recorded 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 Advance Directive(s) 05/19/2019 11:17 AM Advance Directive(s) 04/24/2019 3:00 PM Documents on File Type Date Recorded 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 Advance Directive(s) 05/19/2019 11:17 AM Advance Directive(s) 04/24/2019 3:00 PM Medications Administered Section Inactive Administered Medications - up to 3 most recent administrations Medication Order MAR Action Action Date Dose Rate Site lidocaine (PF) 20 mg/mL (2 %) injection (XYLOCAINE) SUBCUTANEOUS, NEEDED, Starting on Sun12/28/21 at 0926, Until Sun12/28/21 at 0926 Given 12/28/2021 9:26 AM EDT 5 mL Breas t, Right Inactive Administered Medications - up to 3 most recent administrations Medication Order MAR Action Action Date Dose Rate Site benzocaine 20% 1 [place] (TOPEX) 1 [place], TOPICAL, DIRECTED, Starting on Sun08/11/22 at 1230, Until Sun08/11/22 at 1629, DOSING DIRECTED BY PHYSICIAN FOR PROCEDURAL SEDATION ONLY - Pharmaceutical Waste: Aerosol -, Intraprocedure Given 08/11/2022 12:20 PM EST 5 Sprays diphenhydrAMINE 12.5-50 mg injection (BENADRYL) 12.5-50 mg, INTRAVENOUS, DIRECTED, Starting on Sun08/11/22 at 1230, Until Sun08/11/22 at 1629, DOSING DIRECTED BY PHYSICIAN FOR PROCEDURAL SEDATION ONLY, Intraprocedure Given 08/11/2022 12:23 PM EST 50 mg fentaNYL 50 mcg/mL 25-100 mcg injection (SUBLIMAZE) 25-100 mcg, INTRAVENOUS, DIRECTED, Starting on Sun08/11/22 at 1230, Until Sun08/11/22 at 1629, DOSING DIRECTED BY PHYSICIAN FOR PROCEDURAL SEDATION ONLY, Intraprocedure Given 08/11/2022 12:26 PM EST 50 mcg Additional Source Comments INFORMATION SOURCE (unrecogn ized section and content) DATE CREATED AUTHOR AUTHOR'S ORGANIZ ATION 12/23/2021 [facility] DATE CREATED AUTHOR AUTHOR'S ORGANIZ ATION 12/30/2021 [facility] DATE CREATED AUTHOR AUTHOR'S ORGANIZ ATION 12/30/2021 [facility] DATE CREATED AUTHOR AUTHOR'S ORGANIZ ATION 06/23/2022 [facility] DATE CREATED AUTHOR AUTHOR'S ORGANIZ ATION 07/29/2023 [facility] Source Comments (unrecognize d section and content) In the event this informatio n is protected by the Federal Confidentiality of Alcohol and Drug Abuse Patient Records regulations: The Federal rules restrict any use of the information to criminally investigate or prosecute any alcohol or drug abuse patient.[facility] the event this information is protected by the Federal Confidentiality of Alcohol and Drug Abuse Patient Records regulations: The Federal rules restrict any use of the information to criminally investigate or prosecute any alcohol or drug abuse patient.[facility] the event this information is protected by the Federal Confidentiality of Alcohol and Drug Abuse Patient Records regulations: The Federal rules restrict any use of the information to criminally investigate or prosecute any alcohol or drug abuse patient.[facility] the event this information is protected by the Federal Confidentiality of Alcohol and Drug Abuse Patient Records regulations: The Federal rules restrict any use of the information to criminally investigate or prosecute any alcohol or drug abuse patient.[facility] the event this information is protected by the Federal Confidentiality of Alcohol and Drug Abuse Patient Records regulations: The Federal rules restrict any use of the information to criminally investigate or prosecute any alcohol or drug abuse patient.[facility] the event this information is protected by the Federal Confidentiality of Alcohol and Drug Abuse Patient Records regulations: The Federal rules restrict any use of the information to criminally investigate or prosecute any alcohol or drug abuse patient.[facility] the event this information is protected by the Federal Confidentiality of Alcohol and Drug Abuse Patient Records regulations: The Federal rules restrict any use of the information to criminally investigate or prosecute any alcohol or drug abuse patient.[facility] the event this information is protected by the Federal Confidentiality of Alcohol and Drug Abuse Patient Records regulations: The Federal rules restrict any use of the information to criminally investigate or prosecute any alcohol or drug abuse patient.[facility] the event this information is protected by the Federal Confidentiality of Alcohol and Drug Abuse Patient Records regulations: The Federal rules restrict any use of the information to criminally investigate or prosecute any alcohol or drug abuse patient.[facility] the event this information is protected by the Federal Confidentiality of Alcohol and Drug Abuse Patient Records regulations: The Federal rules restrict any use of the information to criminally investigate or prosecute any alcohol or drug abuse patient.[facility] the event this information is protected by the Federal Confidentiality of Alcohol and Drug Abuse Patient Records regulations: The Federal rules restrict any use of the information to criminally investigate or prosecute any alcohol or drug abuse patient.[facility] the event this information is protected by the Federal Confidentiality of Alcohol and Drug Abuse Patient Records regulations: The Federal rules restrict any use of the information to criminally investigate or prosecute any alcohol or drug abuse patient.[facility] the event this information is protected by the Federal Confidentiality of Alcohol and Drug Abuse Patient Records regulations: The Federal rules restrict any use of the information to criminally investigate or prosecute any alcohol or drug abuse patient.[facility] the event this information is protected by the Federal Confidentiality of Alcohol and Drug Abuse Patient Records regulations: The Federal rules restrict any use of the information to criminally investigate or prosecute any alcohol or drug abuse patient.[facility] the event this information is protected by the Federal Confidentiality of Alcohol and Drug Abuse Patient Records regulations: The Federal rules restrict any use of the information to criminally investigate or prosecute any alcohol or drug abuse patient.[facility] the event this information is protected by the Federal Confidentiality of Alcohol and Drug Abuse Patient Records regulations: The Federal rules restrict any use of the information to criminally investigate or prosecute any alcohol or drug abuse patient.[facility] the event this information is protected by the Federal Confidentiality of Alcohol and Drug Abuse Patient Records regulations: The Federal rules restrict any use of the information to criminally investigate or prosecute any alcohol or drug abuse patient.[facility] the event this information is protected by the Federal Confidentiality of Alcohol and Drug Abuse Patient Records regulations: The Federal rules restrict any use of the information to criminally investigate or prosecute any alcohol or drug abuse patient.[facility] the event this information is protected by the Federal Confidentiality of Alcohol and Drug Abuse Patient Records regulations: The Federal rules restrict any use of the information to criminally investigate or prosecute any alcohol or drug abuse patient.[facility] the event this information is protected by the Federal Confidentiality of Alcohol and Drug Abuse Patient Records regulations: The Federal rules restrict any use of the information to criminally investigate or prosecute any alcohol or drug abuse patient.[facility] the event this information is protected by the Federal Confidentiality of Alcohol and Drug Abuse Patient Records regulations: The Federal rules restrict any use of the information to criminally investigate or prosecute any alcohol or drug abuse patient.[facility] the event this information is protected by the Federal Confidentiality of Alcohol and Drug Abuse Patient Records regulations: The Federal rules restrict any use of the information to criminally investigate or prosecute any alcohol or drug abuse patient.[facility] the event this information is protected by the Federal Confidentiality of Alcohol and Drug Abuse Patient Records regulations: The Federal rules restrict any use of the information to criminally investigate or prosecute any alcohol or drug abuse patient.[facility] the event this information is protected by the Federal Confidentiality of Alcohol and Drug Abuse Patient Records regulations: The Federal rules restrict any use of the information to criminally investigate or prosecute any alcohol or drug abuse patient.[facility] the event this information is protected by the Federal Confidentiality of Alcohol and Drug Abuse Patient Records regulations: The Federal rules restrict any use of the information to criminally investigate or prosecute any alcohol or drug abuse patient.[facility] the event this information is protected by the Federal Confidentiality of Alcohol and Drug Abuse Patient Records regulations: The Federal rules restrict any use of the information to criminally investigate or prosecute any alcohol or drug abuse patient.[facility] the event this information is protected by the Federal Confidentiality of Alcohol and Drug Abuse Patient Records regulations: The Federal rules restrict any use of the information to criminally investigate or prosecute any alcohol or drug abuse patient.[facility] the event this information is protected by the Federal Confidentiality of Alcohol and Drug Abuse Patient Records regulations: The Federal rules restrict any use of the information to criminally investigate or prosecute any alcohol or drug abuse patient.[facility] the event this information is protected by the Federal Confidentiality of Alcohol and Drug Abuse Patient Records regulations: The Federal rules restrict any use of the information to criminally investigate or prosecute any alcohol or drug abuse patient.[facility] the event this information is protected by the Federal Confidentiality of Alcohol and Drug Abuse Patient Records regulations: The Federal rules restrict any use of the information to criminally investigate or prosecute any alcohol or drug abuse patient.[facility] the event this information is protected by the Federal Confidentiality of Alcohol and Drug Abuse Patient Records regulations: The Federal rules restrict any use of the information to criminally investigate or prosecute any alcohol or drug abuse patient.[facility] the event this information is protected by the Federal Confidentiality of Alcohol and Drug Abuse Patient Records regulations: The Federal rules restrict any use of the information to criminally investigate or prosecute any alcohol or drug abuse patient.[facility] the event this information is protected by the Federal Confidentiality of Alcohol and Drug Abuse Patient Records regulations: The Federal rules restrict any use of the information to criminally investigate or prosecute any alcohol or drug abuse patient.[facility] [facility] [place] the event this information is protected by the Federal Confidentiality of Alcohol and Drug Abuse Patient Records regulations: The Federal rules restrict any use of the information to criminally investigate or prosecute any alcohol or drug abuse patient.[facility] the event this information is protected by the Federal Confidentiality of Alcohol and Drug Abuse Patient Records regulations: The Federal rules restrict any use of the information to criminally investigate or prosecute any alcohol or drug abuse patient.[facility] [place] the event this information is protected by the Federal Confidentiality of Alcohol and Drug Abuse Patient Records regulations: The Federal rules restrict any use of the information to criminally investigate or prosecute any alcohol or drug abuse patient.[facility] [place] the event this information is protected by the Federal Confidentiality of Alcohol and Drug Abuse Patient Records regulations: The Federal rules restrict any use of the information to criminally investigate or prosecute any alcohol or drug abuse patient.[facility] [place] the event this information is protected by the Federal Confidentiality of Alcohol and Drug Abuse Patient Records regulations: The Federal rules restrict any use of the information to criminally investigate or prosecute any alcohol or drug abuse patient.[facility] [place] the event this information is protected by the Federal Confidentiality of Alcohol and Drug Abuse Patient Records regulations: The Federal rules restrict any use of the information to criminally investigate or prosecute any alcohol or drug abuse patient.[facility] [place] the event this information is protected by the Federal Confidentiality of Alcohol and Drug Abuse Patient Records regulations: The Federal rules restrict any use of the information to criminally investigate or prosecute any alcohol or drug abuse patient.[facility] [place] the event this information is protected by the Federal Confidentiality of Alcohol and Drug Abuse Patient Records regulations: The Federal rules restrict any use of the information to criminally investigate or prosecute any alcohol or drug abuse patient.[facility] [place] the event this information is protected by the Federal Confidentiality of Alcohol and Drug Abuse Patient Records regulations: The Federal rules restrict any use of the information to criminally investigate or prosecute any alcohol or drug abuse patient.[facility] [place] the event this information is protected by the Federal Confidentiality of Alcohol and Drug Abuse Patient Records regulations: The Federal rules restrict any use of the information to criminally investigate or prosecute any alcohol or drug abuse patient.[facility] [place] the event this information is protected by the Federal Confidentiality of Alcohol and Drug Abuse Patient Records regulations: The Federal rules restrict any use of the information to criminally investigate or prosecute any alcohol or drug abuse patient.[facility] Care Teams (unrecognized sec tion and content) Fur Examiner Relationship Specialty Start Date End Date Dequan Hartman MD [facility] [place] [address] PCP - General Internal Medicine 10/10/16 Fur Examiner Relationship Specialty Start Date End Date Dequan Hartman MD [address] [place] [address] PCP - General Internal Medicine 10/10/16 Fur Examiner Relationship Specialty Start Date End Date Dequan Hartman MD [address] [place] [address] [place] [address] PCP - General Internal Medicine 10/10/16 Fur Examiner Relationship Specialty Start Date End Date Dequan Hartman MD [address] [place] [address], [place] [address] PCP - General Internal Medicine 10/10/16 Fur Examiner Relationship Specialty Start Date End Date Dequan Hartman MD [facility] [place] [address] PCP - General Internal Medicine 10/10/16 Fur Examiner Relationship Specialty Start Date End Date Dequan Hartman MD [address] [place] [address], [place] [address] PCP - General Internal Medicine 10/10/16 Fur Examiner Relationship Specialty Start Date End Date Dequan Hartman MD [address] [place] [address], [place] [address] PCP - General Internal Medicine 10/10/16 Fur Examiner Relationship Specialty Start Date End Date Dequan Hartman MD [address] [place] [address], [place] [address] PCP - General Internal Medicine 10/10/16 Fur Examiner Relationship Specialty Start Date End Date Dequan Hartman MD [address] [place] [address], [place] [address] PCP - General Internal Medicine 10/10/16 Fur Examiner Relationship Specialty Start Date End Date Dequan Hartman MD [address] [place] [address], [place] [address] PCP - General Internal Medicine 10/10/16 Fur Examiner Relationship Specialty Start Date End Date Dequan Hartman MD [address] [place] [address], [place] [address] PCP - General Internal Medicine 10/10/16 Fur Examiner Relationship Specialty Start Date End Date Dequan Hartman MD [address] [place] [address], [place] [address] PCP - General Internal Medicine 10/10/16 Fur Examiner Relationship Specialty Start Date End Date Dequan Hartman MD [address] [place] [address], [place] [address] PCP - General Internal Medicine 10/10/16 Fur Examiner Relationship Specialty Start Date End Date Dequan Hartman MD [address] [place] [address], [place] [address] PCP - General Internal Medicine 10/10/16 Fur Examiner Relationship Specialty Start Date End Date Dequan Hartman MD [address] [place] [address], [place] [address] PCP - General Internal Medicine 10/10/16 Fur Examiner Relationship Specialty Start Date End Date Dequan Hartman MD [address] [facility] [place] [address] PCP - General Internal Medicine 10/10/16 Fur Examiner Relationship Specialty Start Date End Date Dequan Hartman MD [address] [facility] [place] [address] PCP - General Internal Medicine 10/10/16 Fur Examiner Relationship Specialty Start Date End Date Dequan Hartman MD [address] [facility] [place] [address] PCP - General Internal Medicine 10/10/16 Fur Examiner Relationship Specialty Start Date End Date Dequan Hartman MD [address] [facility] [place] [address] PCP - General Internal Medicine 10/10/16 Fur Examiner Relationship Specialty Start Date End Date Dequan Hartman MD [address] [facility] [place] [address] PCP - General Internal Medicine 10/10/16 Fur Examiner Relationship Specialty Start Date End Date Dequan Hartman MD [address] [facility] [place] [address] PCP - General Internal Medicine 10/10/16 Fur Examiner Relationship Specialty Start Date End Date Dequan Hartman MD [address] [facility] [place] [address] PCP - General Internal Medicine 10/10/16 Fur Examiner Relationship Specialty Start Date End Date Dequan Hartman MD [address] [facility] [place] [address] PCP - General Internal Medicine 10/10/16 Fur Examiner Relationship Specialty Start Date End Date Dequan Hartman MD [address] [place] [address] PCP - General Internal Medicine 10/10/16 Fur Examiner Relationship Specialty Start Date End Date Dequan Hartman MD [address] [place], [place] [address] PCP - General Internal Medicine 10/10/16 Reason for Visit (unrecogniz ed section and content) Specialty Diagnoses / Procedures Referred By Morgan garcia Referred To Contact Psychiatry / ADULT PSYCHIATRY Diagnoses NEW PATIENT Procedures NEW PSYC ADULT MelissaKal LISW [address] [place] [address] Radha Fountain, SEASONING SPRAYER.HELP DESK SPECIALIST [address] [place] [address] Referral ID Status Reason Start Date Expiration Date Visits Re quested Visits Authorized [id number] Closed 07/13/2021 10/11/2021 1 1 Reason Onset Date Comments Refill Request 09/12/2021 Reason Comments Patient Question Reason Comments 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 Specialty Diagnoses / Procedures Referred By Morgan garcia Referred To Contact [facility] Diagnoses Fibrocystic breast changes, bilateral Family history of breast cancer Monoallelic mutation of JOSE gene Visit for screening mammogram Procedures HERBERT SCREENING W CARRIE SCREENING DIGITAL BREAST TOMOSYNTHESIS BI SCREENING MAMMOGRAPHY BI 2-VIEW BREAST INC Flaca Hunter MD [address] [place] [address] [facility] [address] [place] [address] Referral ID Status Reason Start Date Expiration Date V isits Requested Visits Authorized [id number] Closed Auto-Generate d Referral 12/18/2022 01/17/2024 1 1 Reason Comments F/U 6 months Labs prior Reason Onset Date Comments Refill Request 01/03/2023 Reason Onset Date Comments Refill Request 02/12/2023 Reason Comments Insect Bite follow up from vi sit on right foot Reason Comments Medicare Wellness Exam Reason Comments Radiology Mammogram Specialty Diagnoses / Procedures Referred By Contac t Referred To Contact [facility] Diagnoses Nausea Procedures ESOPHAGOGASTRODUODENOSCOPY TRANSORAL DIAGNOSTIC [facility] [address] [place] [address] Referral ID Status Reason Start Date Expiration Date Visits Re quested Visits Authorized [id number] 1 1 Reason Comments Medication Request Care Team (unrecognized sect ion and content) Care Team Personnel Name: MASOUD FELIX MD Position: P3 Physician - Orthopedics Member Role: Primary Care Physician Address: Address: [address] [place] [address] [facility] [place] [address]- US FOR RECORDS PERTAINING TO PATIENTS WHO ARE OR HAVE BEEN ENROLLED IN A CHEMICAL DEPENDENCY/SUBSTANCEABUSE PROGRAM, SOME INFORMATION MAY BE OMITTED. This clinical summary was aggregated from multiple sources. Caution should be exercised in using it in the provision of clinical care. This summary normalizes information from multiple sources, and as a consequence, information in this document may materially change the coding, format and clinical context of patient data. In addition, data may be omitted in some cases. CLINICAL DECISIONS SHOULD BE BASED ON THE PRIMARY CLINICAL RECORDS. [facility] provides no warranty or guarantee of the accuracy or completeness of information in this document.
== END | disposition home or self-care (01) ==
LOC: SL 20:07
PROVIDERS: PCP Internal Medicine; Referring Provider Nurse Practitioner Acute Care; Visit Provider Nurse Practitioner Acute Care
DX: G47.33 Obstructive sleep apnea (adult) (pediatric) (principal)
CPT/HCPCS: 95811

== ENCOUNTER → 2023-12-20 | Outpatient (CLI) | payer MEDICARE, OTHER, SELFPAY ==
--- NOTE | 2023-12-20 12:34 | STE_ITS ---
Reason For Study: DYSPNEA/SOB Stress Results Protocol: Cristi Protocol Maximum Predicted HR: 150 bpm Target HR: 128 bpm % Maximum Predicted HR: 91 % DurationHeart Rate Stage (mm:ss) (bpm) BP BASELINE 69 142/92 STAGE 1 3:00 102 160/88 STAGE 2 3:00 115 170/80 STAGE 3 3:00 127 180/90 STAGE 4 0:30 136 / RECOVERY 86 158/90 Stress Duration: 9:30 mm:ss Maximum Stress HR: 136 bpm Baseline Echocardiogram Findings Stress Echo Wall motion Data Resting WM Intermediate WM Stress WM ECHO/Stress Test Echo w/o Contrast Interpretation Summary Exercise stress echocardiogram. 68-year-old lady with a history of dyspnea. Stress EKG. Resting EKG demonstrates sinus rhythm with a rate of 67 bpm normal intervals ar e noted resting blood pressure is 142/92 mmHg. Patient exercised according to regular Cristi protocol for total duration of 9 minutes and 30 seconds. The maximum heart rate attained was 141 bpm which was 94% of maximum predicted heart rate the maximum workload was 11.7 metabolic equivalents. At re st there were no ST or T wave changes noted suggest ischemia and at peak exercise upsloping ST ballesteros ges were noted we did not meet the criteria for ischemia. No clinical angina was noted. Test was term inated due to the target heart rate being achieved. The peak blood pressure was 180/90 mmHg which is a normal blood pressure response to exercise. Stress echocardiogram. The resting echocardiogram demonstrated preserved ejecti on fraction of 60% with no wall motion abnormalities and no valvular issues. At peak exercise ther e was thickening of all blackwood reduction of low ventricular cavity size and peaking of ejection frac tion at approximately 70%. No wall motion abnormalities were present. Conclusion: Stress echo with no EKG or echocardiographic criteria for ischemia at a high wo rkload. Preserved ejection fraction at rest and with exercise. Ordering Physician: Elias Kramer Referring Physician: Elias Kramer Performed By: Radha Mcfadden RCS
== END | disposition home or self-care (01) ==
LOC: CVS 12:33
PROVIDERS: PCP Internal Medicine; Referring Provider Internal Medicine Cardiovascular Disease; Visit Provider Internal Medicine Cardiovascular Disease
DX: R06.02 Shortness of breath (principal)
CPT/HCPCS: 93017; 93350

== ENCOUNTER → 2024-03-24 | Outpatient (CLI) | payer MEDICARE, OTHER, SELFPAY | END | disposition home or self-care (01) | LOC: SL 10:13 | PROVIDERS: PCP Internal Medicine; Referring Provider Nurse Practitioner Acute Care; Visit Provider Nurse Practitioner Acute Care | DX: G47.33 Obstructive sleep apnea (adult) (pediatric) (principal) | CPT/HCPCS: 95806 ==

== ENCOUNTER 2025-05-22 08:54 | Inpatient (IN) | payer MEDICARE, OTHER, SELFPAY ==
[2025-05-22] VITALS (9 sets, daily range): BP systolic 118–175; BP diastolic 76–100; PULSE 74–82; RESP 16–18; TEMP 36.1–36.8; O2SAT 94–100; BMI 27.6
--- NOTE | 2025-05-22 09:04 | CT_ITS ---
PROCEDURE: CT/Soft Tissue Neck WITH Contrast
--- NOTE | 2025-05-22 09:05 | EX.ED.DYSGE1 ---
HPI History of Present Illness Chief Complaint: Sore Throat Narrative Narrative: Patient is a 69-year-old female with past medical history of CED, hypertension, hypothyroidism, hyperlipidemia who presented to the emergency department with a chief complaint sore throat. States that last night she developed a sore throat that progressively worsened and she went to urgent care today and they were concerned that she has an abscess therefore she was sent here. States that she was tested for strep throat at urgent care and this was negative. Patient states that it is very painful for her to swallow. 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 Hyperlipidemia Vitamin D deficiency Hypothyroid Arthritis Essential (primary) hypertension SOB (shortness of breath) CED (obstructive sleep apnea) Daytime hypersomnia Osteoarthritis Home Medications ?Medication ?Instructions ?Recorded ?Last Taken ?Type calcium 600 mg-D3 400 1 ea PO DAILY 02/21/16 Unknown History unit-magnesium 40 wu-Dr-atw-Mn-boron chew tablet tramadol 50 mg tablet 50 mg PO Q6H PRN pain #30 tabs 11/12/17 Unknown Rx Oral appliance #1 ea 08/28/23 Unknown Rx epinephrine 0.3 mg/0.3 mL 0.3 ml IM X1 PRN anaphylaxis 10/29/23 Unknown History injection, auto-injector levothyroxine 112 mcg tablet 112 mcg PO QDAY disorder of 10/29/23 Unknown History thyroid gland celecoxib 200 mg capsule 200 mg PO DAILY 11/14/23 Unknown History venlafaxine 25 mg tablet 37.5 mg PO DAILY 11/14/23 Unknown History amlodipine 5 mg tablet 5 mg PO DAILY 05/22/25 Unknown History bupropion HCl 100 mg tablet 100 mg PO DAILY 05/22/25 Unknown History zolpidem 5 mg tablet (Ambien) 5 mg PO QHS 05/22/25 Unknown History Allergy/AdvReac Type Severity Reaction Status Date / Time bee venom protein (honey bee) Allergy Mild Swelling Verified 04/23/24 11:11 adhesive tape AdvReac Rash Verified 04/23/24 11:11 nickel AdvReac Rash Verified 04/23/24 11:11 Family History Mother Breast cancer Hypertension Thyroid disorder Father Hypertension Surgical History History of appendectomy H/O tubal ligation Social History Smoking Status: Former smoker how long ago did patient quit smoking: about 15 yrs. second hand exposure: No ROS ROS ED ROS Narrative Constitutional: Denies any fevers, chills, headaches Eyes, ears, nose, throat: Complaint sore throat as noted above and concern for abscess as noted above, Cardiovascular: Denies chest pain Neurological: Denies numbness, weakness, tingling Musculoskeletal: Denies back pain Skin: Denies any rashes or lesions EXAM Physical Exam Narrative Exam Narrative: General: Patient was lying in bed rest comfortably did not appear to be acute distress Head: Atraumatic, normocephalic Eyes, ears, nose, throat: PERRL bilaterally, EOMI bilaterally, no conjunctival injection noted patient does have swelling noted on the left side with some deviation of her uvula to the right no sublingual swelling Neck: Soft, supple, trachea midline patient has full range of motion of her neck no pain elicited no concern for Curtis's angina Cardiovascular: Regular rate and rhythm Extremities: +5/5 strength noted in the bilateral lower extremities Neurological: Patient follow commands and that she was at [facility] 2024 Skin: Warm, dry, tact no rashes or lesions noted Const Vital Signs: 05/22/25 08:55 05/22/25 08:56 05/22/25 09:56 Temperature 97.0 F L 98.0 F Temperature Source Temporal Temporal Pulse Rate 74 75 74 Respiratory Rate 16 16 16 Blood Pressure 171/95 H 171/100 H 175/81 H Blood Pressure Mean 120 123 112 Pulse Ox 99 100 97 Oxygen Delivery Method Room Air Room Air Room Air 05/22/25 10:41 05/22/25 12:28 Temperature Temperature Source Pulse Rate 74 79 Respiratory Rate 16 18 Blood Pressure 175/81 H 166/94 H Blood Pressure Mean 112 118 Pulse Ox 97 96 Oxygen Delivery Method Room Air Room Air MDM MDM MDM Narrative Medical decision making narrative: Patient is a 69-year-old female who presents to the emergency department chief complaint sore throat and concern for abscess. On the differential diagnose includes but not limited to peritonsillar abscess, retropharyngeal abscess, strep throat. Once workup is obtained and reviewed she will be reevaluated. Patient given IV Decadron 10 mg. Patient CBC reviewed and showed no evidence leukocytosis white blood count over 9.3, he was 14.3, platelet count was noted be 313. Patient sodium is 139, potassium normal 3.7, creatinine normal at 0.90. Patient AST and ALT were [address] soft tissue neck was reviewed and showed asymmetrical soft tissue prominence arising from the left piriform sinus extending cephalad into the left hypopharynx no jacky abscess noted at that point time. Differential includes inflammatory process versus neoplastic process. I reached out to on-call ears nose and throat Dr. Pinon who reviewed the images himself called me back and noted that she does have infection and states that she if his having difficulty swallowing that she can be admitted to medicine with consult him. On reevaluation the patient states that she feels about the same and notes that is very painful for her to swallow she will be given Unasyn here in the emergency department. This point I will discuss case with hospitalist for admission for IV antibiotics and continued steroids. Discussed case with hospitalist Dr. Dukes who accept the patient for admission. Patient was notified is agreeable to plan all question concerns answered. Lab Data Labs: Laboratory Results - last 24 hr 05/22/25 09:40 WBC 9.3 RBC 4.77 Hgb 14.3 Hct 44.0 MCV 92.2 MCH 30.0 MCHC 32.5 RDW Std Deviation 47.5 H RDW Coeff of Boris 13.7 Plt Count 313 MPV 10.9 Immature Gran % (Auto) 0.400 Neut % (Auto) 75.2 H Lymph % (Auto) 13.[address] [place] % (Auto) 9.3 Eos % (Auto) 1.2 Baso % (Auto) 0.8 Absolute Neuts (auto) 7.0 Absolute Lymphs (auto) 1.21 Nucleated RBC % 0 Sodium 139 Potassium 3.7 Chloride 102 Carbon Dioxide 27.3 Anion Gap 9 BUN 12 Creatinine 0.90 Estim Creat Clear Calc 58.21 Est GFR (MDRD) Non-Af 69 BUN/Creatinine Ratio 13.6 Glucose 94 Calcium 9.6 Total Bilirubin 0.43 AST 16 ALT 14 Alkaline Phosphatase 84 Total Protein 7.2 Albumin 4.1 Globulin 3.1 Albumin/Globulin Ratio 1.3 Radiography Diagnostic Testing: Clinical Impression(s) from Imaging Studies Soft Tissue Neck CT 05/22/25 09:04 IMPRESSION: Asymmetrical soft tissue prominence arising from the left piriform sinus extending cephalad into the left hypopharynx. No jacky abscess is seen at this time. Differential diagnosis to consider should include either inflammatory process versus possible neoplastic process. Reading Location: [id number] Discharge Plan Dx/Rx/DC Orders Clinical Impression: Acute sore throat, Swelling of left palatine tonsil, Hyperlipidemia, CED (obstructive sleep apnea), Essential (primary) hypertension Disposition Disposition: Acute Care Hospital [facility]
[2025-05-22] MEDS: 0.9% Normal Saline (1000mL) 1,000 ML 999 ML IV (09:34)
[2025-05-22 09:43] LABS: Hematocrit 44.0 % (37-47); Hemoglobin 14.3 g/dL (12.0-15.0); Immature Granulocytes Count 0.040 X10^3/uL (0.0-0.0); Mean Corp Hgb Conc 32.5 g/dL (32-36); Mean Corpuscular Volume 92.2 fL (81-99); Mean Platelet Vol. 10.9 fl (6.2-12.0); NRBC Flagged by Analyzer 0 % (0-5); Platelet Count 313 K/mm3 (150-450); RBC Distribution Width CV 13.7 % (11.6-14.6); RBC Distribution Width SD 47.5 fl (35.1-43.9); Red Blood Count 4.77 M/mm3 (4.2-5.4); White Blood Count 9.3 K/mm3 (4.4-11.0)
[2025-05-22 10:14] LABS: AST(SGOT) 16 U/L (<=31); Alanine Aminotransfer ALT/SGPT 14 U/L (<=34); Albumin, Serum 4.1 g/dL (3.4-4.8); Alkaline Phosphatase 84 U/L (35-104); Anion Gap 9 (5-15); BUN 12 mg/dL (4-19); BUN/Creat Ratio 13.6 RATIO (10-20); Calcium,Total 9.6 mg/dL (7.6-11.0); Carbon Dioxide 27.3 mmol/L (21.0-32.0); Chloride 102 mmol/L (98-108); Estimated Creatinine Clearance 58.21 ml/min (50-250); Globulin 3.1 g/dL (2.2-4.2); Glucose 94 mg/dL (70-99); Potassium 3.7 mmol/L (3.3-5.1)
[2025-05-22] MEDS: Ampicillin/Sulbactam 3 GM in 0.9% Normal Saline (100mL MB+) 100 ML IV ×3 (12:21→23:00)
--- NOTE | 2025-05-22 13:03 | PCM.HP.STD ---
HPI - General General Date of Admission: 05/22/25 Date of Service: 05/22/25 Chief Complaint: sore throat HPI Narrative RAFIA LAWLER, is a 69 F with a PMh as outlined who presents via the ED on 05/22/1015 with a complaint of sore throat. Her symptoms had been going on for one day prior to admission, and worsened through the night. She started having difficulty swallowing and the pain worsened so she went to the urgent care on the day of admission and there was concern for abscess so she was sent to the ED. she was tested for strep throat at the urgent care but this was apparently negative. She denied any fever or chills, nausea or vomiting or any recent upper respiratory symptoms. She has not had any such symptoms before review of systems otherwise negative. Vitals in the ED were blood pressure 166/94, pulse rate of 79, respiratory rate of 18 and oxygen sats of 96% on room air. CBC showed hemoglobin of 14.3 with WBC of 9.3 and platelets of 313. Chemistry showed sodium of 139 with potassium of 3.7 and bicarb of 27.3. Creatinine was 0.9. Soft tissue CT head and neck showed asymmetrical soft tissue prominence arising from the left piriform sinus extending cephalad into the left hypopharynx with no jacky abscess seen and differential diagnosis considered including inflammatory process versus possible neoplastic process. The ED doctor did discuss the images with the ENT surgeon on-call. The ENT surgeon reviewed the images and felt this was likely an infection and is willing to be consulted once patient is admitted. She has been admitted to be managed for possible tonsillitis. 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 Hyperlipidemia Vitamin D deficiency Hypothyroid Arthritis Essential (primary) hypertension SOB (shortness of breath) CED (obstructive sleep apnea) Daytime hypersomnia Osteoarthritis Home Medications ?Medication ?Instructions ?Recorded ?Last Taken ?Type calcium 600 mg-D3 400 1 ea PO DAILY 02/21/16 Unknown History unit-magnesium 40 tn-Pp-fal-Mn-boron chew tablet tramadol 50 mg tablet 50 mg PO Q6H PRN pain #30 tabs 11/12/17 Unknown Rx Oral appliance #1 ea 08/28/23 Unknown Rx epinephrine 0.3 mg/0.3 mL 0.3 ml IM X1 PRN anaphylaxis 10/29/23 Unknown History injection, auto-injector levothyroxine 112 mcg tablet 112 mcg PO QDAY disorder of 10/29/23 05/21/25 History thyroid gland celecoxib 200 mg capsule 200 mg PO DAILY arthritis 11/14/23 05/21/25 History venlafaxine 25 mg tablet 37.5 mg PO DAILY anxiety 11/14/23 05/21/25 History amlodipine 5 mg tablet 5 mg PO DAILY Hypertension 05/22/25 05/21/25 History bupropion HCl 100 mg tablet 150 mg PO DAILY depression 05/22/25 05/21/25 History zolpidem 5 mg tablet (Ambien) 6.25 mg PO QHS insomnia 05/22/25 05/21/25 History Allergy/AdvReac Type Severity Reaction Status Date / Time bee venom protein (honey bee) Allergy Mild Swelling Verified 04/23/24 11:11 adhesive tape AdvReac Rash Verified 04/23/24 11:11 nickel AdvReac Rash Verified 04/23/24 11:11 Family History Mother Breast cancer Hypertension Thyroid disorder Father Hypertension Surgical History History of appendectomy H/O tubal ligation Social History Smoking Status: Former smoker how long ago did patient quit smoking: about 15 yrs. second hand exposure: No ROS Constitutional Constitutional: Reports fatigue, malaise and weakness; Denies anorexia, chills or fever(s) Eyes Eyes: Reports loss of vision; Denies change in vision ENT HEENT: Reports dysphagia and sore throat; Denies headache(s) or hearing loss Cardiovascular Cardiovascular: Denies chest pain, dyspnea on exertion, edema, lightheadedness, orthopnea, palpitations, paroxysmal nocturnal dyspnea, rapid heart rate or syncope Respiratory/Chest Respiratory/Chest: Denies cough, dyspnea, excessive phlegm production, productive cough or shortness of breath at rest Gastrointestinal Gastrointestinal: Denies abdominal pain, constipation, diarrhea, nausea or vomiting Genitourinary Genitourinary: Denies burning urination, dysuria or hematuria Musculoskeletal Musculoskeletal: Denies arthralgias Neurologic Neurologic: Denies confusion, dizziness, focal weakness, headache(s), numbness, paresthesias, seizure-like activity, seizures or syncope Vital Signs Vital Signs Vital Signs: 05/22/25 08:55 05/22/25 08:56 05/22/25 09:56 Temperature 97.0 F L 98.0 F Temperature Source Temporal Temporal Pulse Rate 74 75 74 Respiratory Rate 16 16 16 Blood Pressure 171/95 H 171/100 H 175/81 H Blood Pressure Mean 120 123 112 Pulse Ox 99 100 97 Oxygen Delivery Method Room Air Room Air Room Air 05/22/25 10:41 05/22/25 12:28 Temperature Temperature Source Pulse Rate 74 79 Respiratory Rate 16 18 Blood Pressure 175/81 H 166/94 H Blood Pressure Mean 112 118 Pulse Ox 97 96 Oxygen Delivery Method Room Air Room Air Weight Weight: 166 lb Body Mass Index (BMI) 27.6 Physical Exam Const alert, oriented x3, no apparent distress and average body habitus General Appearance: cooperative HEENT normocephalic and head/scalp atraumatic HEENT Narrative: Her throat is erythematous with the left tonsil very erythematous and swollen with small pockets of pus. Eyes EOMs intact bilaterally and conjunctivae normal Neck supple and no JVD Resp normal respiratory effort, no retractions, no use of accessory muscles and clear to auscultation bilaterally Cardio regular rate, regular rhythm, S1 normal heart sound, S2 normal heart sound and no murmurs GI normal to inspection, nondistended, normoactive bowel sounds, soft to palpation and non-tender Extremity normal to inspection, full ROM and no clubbing, cyanosis or edema Neuro oriented x3, CN's II-XII intact bilaterally, moves all extremities and no focal motor deficits Sensorium / Orientation: awake and alert Motor Exam: strength 5/5 throughout Psych affect normal Results Lab / Micro Data 05/22/25 09:40 05/22/25 09:40 Labs: Laboratory Results - last 24 hr 05/22/25 09:40: WBC 9.3, RBC 4.77, Hgb 14.3, Hct 44.0, MCV 92.2, MCH 30.0, MCHC 32.5, RDW Std Deviation 47.5 H, RDW Coeff of Boris 13.7, Plt Count 313, MPV 10.9, Immature Gran % (Auto) 0.400, Neut % (Auto) 75.2 H, Lymph % (Auto) 13.1 L, Bartholomew % (Auto) 9.3, Eos % (Auto) 1.2, Baso % (Auto) 0.8, Absolute Neuts (auto) 7.0, Absolute Lymphs (auto) 1.21, Nucleated RBC % 0, Sodium 139, Potassium 3.7, Chloride 102, Carbon Dioxide 27.3, Anion Gap 9, BUN 12, Creatinine 0.90, Estim Creat Clear Calc 58.21, Est GFR (MDRD) Non-Af 69, BUN/Creatinine Ratio 13.6, Glucose 94, Calcium 9.6, Total Bilirubin 0.43, AST 16, ALT 14, Alkaline Phosphatase 84, Total Protein 7.2, Albumin 4.1, Globulin 3.1, Albumin/Globulin Ratio 1.3 Imaging Radiology Impression Soft Tissue Neck CT 05/22/25 09:04 IMPRESSION: Asymmetrical soft tissue prominence arising from the left piriform sinus extending cephalad into the left hypopharynx. No jacky abscess is seen at this time. Differential diagnosis to consider should include either inflammatory process versus possible neoplastic process. Reading Location: [id number] Assessment & Plan Assessment/Plan (1) Swelling of left palatine tonsil: (2) Acute sore throat: PLAN: Plan #Acute tonsilitis Admit to [facility]. Admitted with a complaint of sore throat for 1 day which had gradually worsened. Strep throat test done at outside urgent care was negative. CT soft tissue neck with contrast showed asymmetrical soft tissue prominence arising from the left piriform sinus extending cephalad into the left hypopharynx with no jacky abscess seen at this time and differential diagnosis included inflammatory process versus possible neoplastic process ENT surgeon on-call Dr. Downs reviewed images and felt it was more of an infection Admit to [facility]. Placed on clear liquid diet for now and advance as tolerated. Hydrate gently with IV fluids Started on IV Unasyn and Decadron in the ED. Will continue. Hold off on ENT consult for now. If patient's symptoms worsen low threshold to consult ENT. #Hypertension: On amlodipine #Depression and anxiety: On bupropion and venlafaxine #Hypothyroidism: On Synthroid #DVT prophylaxis: Lovenox CODE STATUS: Full code Patient counseled extensively about different types of CODE STATUS including full code, DNR CCA and DNR CCA. Patient elects to be full code. Total func-ob-qfey time 16 minutes. Charges/Coding Visit Charges Inpatient E&M: 31608 Init Hosp L3 Procedures Hospitalists Procedures: 81014 Advncd Care Plan 30 Min
[2025-05-22] MEDS: 0.9% Normal Saline (1000mL) 1,000 ML 125 ML IV ×2 (14:24→22:54)
[2025-05-22] MEDS: 0.9% Saline Lock 10 ML Syringe IV ×2 (20:33→23:02)
[2025-05-23 04:50] VITALS: BP 132/75; PULSE 71; RESP 16; TEMP 36.4; O2SAT 95
[2025-05-23] MEDS: Ampicillin/Sulbactam 3 GM in 0.9% Normal Saline (100mL MB+) 100 ML IV ×2 (04:55→12:42)
[2025-05-23] MEDS: 0.9% Saline Lock 10 ML Syringe IV (04:57)
[2025-05-23] MEDS: 0.9% Normal Saline (250mL Bag) 250 ML 15 ML IV (06:31)
[2025-05-23 07:22] LABS: Hematocrit 37.6 % (37-47); Hemoglobin 12.4 g/dL (12.0-15.0); Immature Granulocytes Count 0.080 X10^3/uL (0.0-0.0); Mean Corp Hgb Conc 33.0 g/dL (32-36); Mean Corpuscular Volume 91.9 fL (81-99); Mean Platelet Vol. 11.0 fl (6.2-12.0); NRBC Flagged by Analyzer 0 % (0-5); Platelet Count 281 K/mm3 (150-450); RBC Distribution Width CV 13.7 % (11.6-14.6); RBC Distribution Width SD 46.8 fl (35.1-43.9); Red Blood Count 4.09 M/mm3 (4.2-5.4); White Blood Count 11.7 K/mm3 (4.4-11.0)
[2025-05-23 07:54] LABS: Anion Gap 10 (5-15); BUN 12 mg/dL (4-19); BUN/Creat Ratio 14.9 RATIO (10-20); Calcium,Total 8.2 mg/dL (7.6-11.0); Carbon Dioxide 21.3 mmol/L (21.0-32.0); Chloride 106 mmol/L (98-108); Estimated Creatinine Clearance 65.49 ml/min (50-250); Glucose 133 mg/dL (70-99); Potassium 3.7 mmol/L (3.3-5.1)
--- NOTE | 2025-05-23 08:49 | CASEMGMT ---
Dx: Acute Tonsilitis LACE: 1 6-Clicks: 24 Medical record reviewed and patient evaluated for identification of discharge planning needs. Based on this review, at this time criteria are not present to indicate a need for discharge planning. Will remain available to assist with discharge planning needs as identified or requested.
[2025-05-23 10:00] VITALS: BP 132/76; PULSE 72; RESP 16; TEMP 36.8; O2SAT 96
--- NOTE | 2025-05-23 13:43 | DCINST_ITS ---
Discharge Instructions
--- NOTE | 2025-05-23 13:43 | PCM.DC ---
Discharge Instructions DC O2, CPAP, BIPAP needs Home O2 Discharge instructions: No Dressing / Incision Discharge Activity: Return to Normal Activity Weight Bearing Status: Weight bearing as tolerated Dressing / Incision Call your doctor if you observe: Fever of 101 or Higher, Shortness of breath, Dizziness, Swelling in the ankles and Chest pain Follow Up Care Test Results: Test results from this visit will be discussed in further detail at your follow-up appointment, if applicable. Discharge Plan Admission Admit Date/Time: 05/22/25 13:14 Primary Reason for Your Visit: acute tonsillitis Attending Provider: Orquidea Dukes Primary Care Provider: Aditi Hartman Instructions Patient Instructions: Tonsillitis in Adults, ED Tonsillitis Discharge Orders/Prescriptions Prescriptions: New amoxicillin-pot clavulanate 875-125 mg tablet 1 tab PO BID Qty: 14 0RF dexamethasone 4 mg tablet 4 mg PO DAILY Qty: 5 0RF Continued tramadol 50 mg tablet 50 mg PO Q6H PRN (Reason: pain) Qty: 30 0RF venlafaxine 25 mg tablet 37.5 mg PO DAILY epinephrine 0.3 mg/0.3 mL auto-injector 0.3 ml IM X1 PRN (Reason: anaphylaxis) levothyroxine 112 mcg tablet 112 mcg PO QDAY celecoxib 200 mg capsule 200 mg PO DAILY Ca-D3-mag eb-fted-mfj-mariela-bor 1 EACH tablet,chewable 1 ea PO DAILY amlodipine 5 mg tablet 5 mg PO DAILY bupropion HCl 100 mg tablet 150 mg PO DAILY zolpidem [Ambien] 5 mg tablet 6.25 mg PO QHS Patient Comments: pt takes only 4x/week. clifton arredondo sat, sun (DME) Oral appliance See Rx Instructions .ROUTE .MEDSUPPLY Qty: 1 0RF Rx Instructions: As directed Referrals / Follow Up: Sidney Downs MD [Med Staff - Active Staff, Ear Nose Throat (ENT)] - Within 1 Week Referral Note: see for tonsillitis to ensure complete resolution Aditi Hartman MD [Primary Care Provider, Internal Medicine] - Within 1 Week Disposition Disposition (needs filled in before D/C Order can be placed): Home, Self Care
--- NOTE | 2025-05-23 13:44 | PCM.DC.SUM ---
Providers Date of Admission: 05/22/25 Date of Discharge: 05/23/25 Primary Care Physician: Dr. Aditi Hartman MD Reason For Visit: TONSILITIS Diagnosis Discharge Diagnosis (1) Swelling of left palatine tonsil: Status: Acute Code(s): R22.1 - Localized swelling, mass and lump, neck (2) Acute sore throat: Status: Acute Code(s): J02.9 - Acute pharyngitis, unspecified Plan #Acute tonsilitis Admit to [facility]. Admitted with a complaint of sore throat for 1 day which had gradually worsened. Strep throat test done at outside urgent care was negative. CT soft tissue neck with contrast showed asymmetrical soft tissue prominence arising from the left piriform sinus extending cephalad into the left hypopharynx with no jacky abscess seen at this time and differential diagnosis included inflammatory process versus possible neoplastic process ENT surgeon on-call Dr. Downs reviewed images and felt it was more of an infection Admit to [facility]. Placed on clear liquid diet for now and advance as tolerated. Hydrate gently with IV fluids Started on IV Unasyn and Decadron in the ED. Will continue. Hold off on ENT consult for now. If patient's symptoms worsen low threshold to consult ENT. #Hypertension: On amlodipine #Depression and anxiety: On bupropion and venlafaxine #Hypothyroidism: On Synthroid #DVT prophylaxis: Lovenox CODE STATUS: Full code Patient counseled extensively about different types of CODE STATUS including full code, DNR CCA and DNR CCA. Patient elects to be full code. Total murv-ze-vxhy time 16 minutes. Medications at Discharge Home Medications calcium 600 mg-D3 400 unit-magnesium 40 vr-Ub-zlm-Mn-boron chew tablet 1 ea PO DAILY 02/21/16 tramadol 50 mg tablet 50 mg PO Q6H PRN pain #30 tabs 11/12/17 Oral appliance #1 ea 08/28/23 epinephrine 0.3 mg/0.3 mL injection, auto-injector 0.3 ml IM X1 PRN anaphylaxis 10/29/23 levothyroxine 112 mcg tablet 112 mcg PO QDAY disorder of thyroid gland 10/29/23 celecoxib 200 mg capsule 200 mg PO DAILY arthritis 11/14/23 venlafaxine 25 mg tablet 37.5 mg PO DAILY anxiety 11/14/23 amlodipine 5 mg tablet 5 mg PO DAILY Hypertension 05/22/25 bupropion HCl 100 mg tablet 150 mg PO DAILY depression 05/22/25 zolpidem 5 mg tablet (Ambien) 6.25 mg PO QHS insomnia 05/22/25 amoxicillin 875 mg-potassium clavulanate 125 mg tablet 1 tab PO BID #14 tabs 05/23/25 dexamethasone 4 mg tablet 4 mg PO DAILY #5 tabs 05/23/25 Hospital Course Operations None Procedures None Summary of Care Provided Minutes Spent on Discharge: 45 Hospital Course: RAFIA LAWLER, is a 69 F with a PMh as outlined who presents via the ED on 05/22/1015 with a complaint of sore throat. Her symptoms had been going on for one day prior to admission, and worsened through the night. She started having difficulty swallowing and the pain worsened so she went to the urgent care on the day of admission and there was concern for abscess so she was sent to the ED. she was tested for strep throat at the urgent care but this was apparently negative. She denied any fever or chills, nausea or vomiting or any recent upper respiratory symptoms. She has not had any such symptoms before review of systems otherwise negative. Vitals in the ED were blood pressure 166/94, pulse rate of 79, respiratory rate of 18 and oxygen sats of 96% on room air. CBC showed hemoglobin of 14.3 with WBC of 9.3 and platelets of 313. Chemistry showed sodium of 139 with potassium of 3.7 and bicarb of 27.3. Creatinine was 0.9. Soft tissue CT head and neck showed asymmetrical soft tissue prominence arising from the left piriform sinus extending cephalad into the left hypopharynx with no jacky abscess seen and differential diagnosis considered including inflammatory process versus possible neoplastic process. The ED doctor did discuss the images with the ENT surgeon on-call. The ENT surgeon reviewed the images and felt this was likely an infection and is willing to be consulted once patient is admitted. She was admitted to be managed for aucte tonsillitis. She was given IV Unasyn and decadron in the ED and this was continued on admission. She was initially placed on clear liquid diet and this was advanced to regular diet as she tolerated it. Patient improved rapidly and had throat swelling and pain resolved by the next day. She felt much better and was able to tolerate a regular diet. She was therefore discharged home on p.o. Augmentin for 7-day course and also discharged on p.o. Decadron 4 mg daily for 5 days. She is follow-up with her primary care doctor and was referred to ENT also to ensure that the tonsillitis had fully resolved. Patient seen and examined prior to discharge. She was seen with her nurse by her bedside. She says she felt much better and had no active complaints. She had an uneventful night. Review of systems otherwise negative. Labs and vitals reviewed. Home medication reviewed and reconciled. Physical Exam Const alert, oriented x3, no apparent distress and average body habitus General Appearance: cooperative and comfortable Orientation / Consciousness: awake HEENT normocephalic, head/scalp atraumatic, hearing grossly normal bilaterally and moist oral mucous membranes Mouth: oral and palatal mucosa normal Eyes PERRL, EOMs intact bilaterally and conjunctivae normal Neck supple and no JVD Resp normal respiratory effort, no retractions, no use of accessory muscles and clear to auscultation bilaterally Cardio regular rate, regular rhythm, S1 normal heart sound, S2 normal heart sound and no murmurs GI normal to inspection, nondistended, normoactive bowel sounds, soft to palpation and non-tender Extremity normal to inspection, full ROM and no clubbing, cyanosis or edema Skin no rashes or lesions noted Neuro oriented x3, CN's II-XII intact bilaterally, moves all extremities and no focal motor deficits Sensorium / Orientation: awake and alert Motor Exam: strength 5/5 throughout Psych affect normal Weight / BMI Weight Weight: 166 lb Body Mass Index (BMI) 27.6 ABG / Lab / Microbiology Data 05/23/25 06:50 05/23/25 06:50 Laboratory: Laboratory Results - last 24 hr 05/23/25 06:50: WBC 11.7 H, RBC 4.09 L, Hgb 12.4, Hct 37.6, MCV 91.9, MCH 30.3, MCHC 33.0, RDW Std Deviation 46.8 H, RDW Coeff of Boris 13.7, Plt Count 281, MPV 11.0, Immature Gran % (Auto) 0.700, Neut % (Auto) 91.3 H, Lymph % (Auto) 6.2 L, [place] % (Auto) 1.7, Eos % (Auto) 0.0, Baso % (Auto) 0.1, Absolute Neuts (auto) 10.7 H, Absolute Lymphs (auto) 0.73 L, Nucleated RBC % 0, Sodium 138, Potassium 3.7, Chloride 106, Carbon Dioxide 21.3, Anion Gap 10, BUN 12, Creatinine 0.77, Estim Creat Clear Calc 65.49, Est GFR (MDRD) Non-Af 82, BUN/Creatinine Ratio 14.9, Glucose 133 H, Calcium 8.2 D/C Instructions Discharge Activity: Return to Normal Activity Weight Bearing Status: Weight bearing as tolerated Call your doctor if you observe: Fever of 101 or Higher, Shortness of breath, Dizziness, Swelling in the ankles and Chest pain DC O2, CPAP, BIPAP Needs Home O2 Discharge instructions: No DC home with Oxygen: No Meaningful Use Info Meaningful Use Meaningful Use Diagnoses (Choose all that apply): None applicable Discharge Plan Admission Admit Date/Time: 05/22/25 13:14 Primary Reason for Your Visit: acute tonsillitis Attending Provider: Orquidea Dukes Primary Care Provider: Aditi Hartman Instructions Patient Instructions: Tonsillitis in Adults, ED Tonsillitis Discharge Orders/Prescriptions Prescriptions: New amoxicillin-pot clavulanate 875-125 mg tablet 1 tab PO BID Qty: 14 0RF dexamethasone 4 mg tablet 4 mg PO DAILY Qty: 5 0RF Continued tramadol 50 mg tablet 50 mg PO Q6H PRN (Reason: pain) Qty: 30 0RF venlafaxine 25 mg tablet 37.5 mg PO DAILY epinephrine 0.3 mg/0.3 mL auto-injector 0.3 ml IM X1 PRN (Reason: anaphylaxis) levothyroxine 112 mcg tablet 112 mcg PO QDAY celecoxib 200 mg capsule 200 mg PO DAILY Ca-D3-mag po-osle-kiu-mariela-bor 1 EACH tablet,chewable 1 ea PO DAILY amlodipine 5 mg tablet 5 mg PO DAILY bupropion HCl 100 mg tablet 150 mg PO DAILY zolpidem [Ambien] 5 mg tablet 6.25 mg PO QHS Patient Comments: pt takes only 4x/week. clifton arredondo sat, sun (DME) Oral appliance See Rx Instructions .ROUTE .MEDSUPPLY Qty: 1 0RF Rx Instructions: As directed Referrals / Follow Up: Sidney Downs MD [Med Staff - Active Staff, Ear Nose Throat (ENT)] - Within 1 Week Referral Note: see for tonsillitis to ensure complete resolution Aditi Hartman MD [Primary Care Provider, Internal Medicine] - Within 1 Week Disposition Disposition (needs filled in before D/C Order can be placed): Home, Self Care Charges/Coding Visit Charges Inpatient E&M: 10508 Disch Hosp >30min
== END 2025-05-23 14:42 | disposition home or self-care (01) | DRG 153 ==
LOC: ED 13:09 → MS3 13:18
PROVIDERS: Admitting Provider Student in an Organized Health Care Education/Training Program; Emergency Provider Emergency Medicine; PCP Internal Medicine; Visit Provider Student in an Organized Health Care Education/Training Program
DX: J03.90 Acute tonsillitis, unspecified (principal); E03.9 Hypothyroidism, unspecified; Z66 Do not resuscitate; I10 Essential (primary) hypertension; F32.A Depression, unspecified; E78.5 Hyperlipidemia, unspecified; G47.33 Obstructive sleep apnea (adult) (pediatric); F41.9 Anxiety disorder, unspecified; Z82.49 Family history of ischemic heart disease and other diseases of the circulatory system; Z79.891 Long term (current) use of opiate analgesic; Z79.1 Long term (current) use of non-steroidal anti-inflammatories (NSAID); Z79.890 Hormone replacement therapy; Z87.891 Personal history of nicotine dependence; Z79.899 Other long term (current) drug therapy; Z98.51 Tubal ligation status
CPT/HCPCS: 36415; 70491; 80048; 80053; 85025; 97161; 97165; 99285; Q9967; A4216; J0295; J2405